=== PATIENT | male | born 1955 ===

== ENCOUNTER 2016-08-17 16:57 | Inpatient (IN) | payer MEDICAID ==
[2016-08-17 17:07] VITALS: BMI 24.2
[2016-08-17] MEDS ORDERED: Vancomycin 1gm in NS 250ml 1 GM/250 ML BAG IVPB STA (17:31)
[2016-08-17] MEDS ORDERED: Piperacill/Tazo 4.5gm in NS 4.5 GM/100 ML BAG IVPB STA (17:31)
--- NOTE | 2016-08-17 17:45 | ED PDOC ---
Arrival/HPI - General Chief Complaint: Abnormal Skin Integrity Time Seen by Provider: 08/17/16 17:00 Historian: Patient - History of Present Illness Narrative History of Present Illness (Text): 08/17/16 17:20 This 61 yo male with a pmh HTN, and recent history of alcohol abuse, presents to this ED c/o generalized rash x 3-4 weeks. Patient b/l lower leg have been progressively worsen, and swollen with drainage. Patient admits intermittent chills, and believes he had a fever yesterday. Denies recent travel, sick contact, sob, cp, zuniga, seizures, abdominal pain, or urinary symptoms. Time/Duration: > month Symptom Onset: Gradual Symptom Course: Worsening Context: Home Past Medical History - Provider Review Nursing Documentation Reviewed: Yes - Cardiac Hx Hypertension: Yes - Pulmonary Hx Respiratory Disorders: No - Neurological Hx Dementia: Yes - HEENT Hx HEENT Disorder: No - Renal Hx Renal Disorder: No - Endocrine/Metabolic Hx Endocrine Disorders: No - Hematological/Oncological Hx Blood Disorders: No - Integumentary Hx Dermatological Disorder: No - Musculoskeletal/Rheumatological Hx Musculoskeletal Disorders: No - Gastrointestinal Hx Gastrointestinal Disorders: No - Genitourinary/Gynecological Hx Genitourinary Disorders: No - Psychiatric Hx Psychophysiologic Disorder: No Hx Substance Use: No - Anesthesia Hx Anesthesia: No Family/Social History - Physician Review Nursing Documentation Reviewed: Yes Family/Social History: No Known Family HX Smoking Status: Never Smoked Hx Alcohol Use: No Hx Substance Use: No Allergies/Home Meds Allergies/Adverse Reactions: Allergies No Known Allergies Allergy (Verified 08/17/16 17:30) Review of Systems - Review of Systems Constitutional: Fevers, Other (chills). absent: Fatigue, Weight Change Eyes: Normal ENT: Normal Respiratory: Normal. absent: SOB, Cough Cardiovascular: Normal. absent: Chest Pain, Palpitations Gastrointestinal: Normal. absent: Abdominal Pain, Vomiting, Appetite Changes Genitourinary Male: Normal. absent: Dysuria, Frequency, Hematuria Musculoskeletal: Normal Skin: Rash, Pruritis, Skin Lesions, Cellulitis, Other (See HPI). absent: Laceration, Abscess, Ulcer Neurological: Normal. absent: Headache, Dizziness Endocrine: Normal Hemo/Lymphatic: Normal Psychiatric: Normal Physical Exam Vital Signs Temp Pulse Resp BP Pulse Ox 08/17/16 17:12 97.9 F 95 H 16 124/78 98 08/17/16 17:07 97.9 F 95 H 16 124/78 98 Temperature: Afebrile Blood Pressure: Normal Pulse: Regular Respiratory Rate: Normal Appearance: Positive for: Well-Appearing, Non-Toxic, Comfortable Pain Distress: None Mental Status: Positive for: Alert and Oriented X 3 - Systems Exam Head: Present: Atraumatic, Normocephalic Pupils: Present: PERRL Extroacular Muscles: Present: EOMI Conjunctiva: Present: Normal Mouth: Present: Moist Mucous Membranes Pharnyx: Present: Normal. No: ERYTHEMA, EXUDATE, TONSILS ENLARGED Nose (External): Present: Atraumatic Nose (Internal): Present: Normal Inspection Neck: Present: Normal Range of Motion. No: Meningeal Signs, MIDLINE TENDERNESS , Paraspinal Tenderness Respiratory/Chest: Present: Clear to Auscultation, Good Air Exchange. No: Respiratory Distress, Accessory Muscle Use, Wheezes, Retracting, Rhonchi Cardiovascular: Present: Regular Rate and Rhythm, Normal S1, S2. No: Murmurs Abdomen: Present: Normal Bowel Sounds. No: Tenderness, Distention, Peritoneal Signs Back: Present: Normal Inspection. No: CVA Tenderness Upper Extremity: Present: Normal Inspection, Normal ROM, NORMAL PULSES, Neurovascularly Intact, Capillary Refill < 2s. No: Cyanosis, Edema Lower Extremity: Present: Edema, NORMAL PULSES, Normal ROM, Tenderness, Swelling , Erythema, Temperature Abnormalties, Neurovascularly Intact, Capillary Refill < 2 s, Other (Oozing drainage both lower extremities). No: CALF TENDERNESS, Cyanosis, Deformity Neurological: Present: GCS=15, CN II-XII Intact, Speech Normal Skin: Present: Warm, Dry, Normal Color. No: Rashes Lymphatic: No: Inguinal Adenopathy Psychiatric: Present: Alert, Oriented x 3, Normal Insight, Normal Concentration Medical Decision Making ED Course and Treatment: 08/17/16 20:21 I spoke with MILKA, residential leasing agent regarding patient complain and physical exam. He said to call Dr. Grimm. I spoke with Dr. Grimm who stated he will see patient Re-evaluation Time: 20:38 Reassessment Condition: Re-examined, Improving,but remains with symptoms - Lab Interpretations Lab Results: 08/17/16 17:59 08/17/16 17:59 Lab Results 08/17/16 20:25: Urine Color Yellow, Urine Appearance Clear, Urine pH 6.0, Ur Specific [place] 1.010, Urine Protein Negative, Urine Glucose (UA) Negative, Urine Ketones Negative, Urine Blood Trace-intact H, Urine Nitrate Negative, Urine Bilirubin Negative, Urine Urobilinogen 0.2, Ur Leukocyte Esterase Negative , Urine RBC 1 - 3, Urine WBC 0 - 2, Ur Epithelial Cells 0 - 2, Urine Bacteria Few 08/17/16 20:07: pO2 85 H, VBG pH 7.38, VBG pCO2 51.0, VBG HCO3 30.2 H, VBG Total CO2 31.8 H, VBG O2 Sat (Calc) 100.9 H, VBG Base Excess 3.9 H, VBG Potassium 4.5, Glucose 114 H, Lactate 2.4 H, FiO2 21.0, Sodium 146.0, Chloride 111.0 H, Venous Blood Potassium 4.5 08/17/16 17:59: C-React Prot High Sens Pending, Alcohol, Quantitative 429 H* 08/17/16 17:59: Sodium 147, Potassium 4.7, Chloride 102, Carbon Dioxide 31, Anion Gap 19, BUN 9, Creatinine 0.7, Est GFR ( Amer) > 60, Est GFR (Non- Af Amer) > 60, Random Glucose 114 H, Calcium 8.5, Phosphorus 4.3, Magnesium 2.0 , Total Bilirubin 0.6, AST 71 H, ALT 25, Alkaline Phosphatase 112, Lactate Dehydrogenase 723 H, Total Creatine Kinase 98, Troponin I < 0.01, NT-Pro-B Natriuret Pep 30.2, Total Protein 10.1 H, Albumin 4.1, Globulin 6.0, Albumin/ Globulin Ratio 0.7 L 08/17/16 17:59: PT 11.4, INR 1.06, APTT 25.9 08/17/16 17:59: WBC 5.5, RBC 4.29, Hgb 14.0, Hct 40.4 L, MCV 94.2, MCH 32.6, MCHC 34.7, RDW 13.6, Plt Count 251, MPV 9.8, Gran % 33.3 L, Lymph % (Auto) 38.9 H, [place] % (Auto) 8.9 H, Eos % (Auto) 18.4 H, Baso % (Auto) 0.5, Gran # 1.84, Lymph # 2.2, [place] # 0.5, Eos # 1.0 H, Baso # 0.03, ESR 40 H I have reviewed the lab results: Yes Interpretation: Abnormal lab values - RAD Interpretation Narrative RAD Interpretations (Text): 08/17/16 20:38 Venous Doppler lower extremity: NO DVT Radiology Orders: 08/17/16 17:35 CHEST PORTABLE [RAD] Stat 08/17/16 17:38 DUPLEX LOWER EXTRM VEIN BILAT [US] Stat - EKG Interpretation Interpreted by ED Physician: Yes (NSR at 92 bpm. Normal interval.) Type: 12 lead EKG Comparison: No previous EKG avail. - Medication Orders Current Medication Orders: Multivitamins/Vitamin C 10 ml/Thiamine HCl 100 mg/ Folic Acid 1 mg/ Sodium Chloride 1,011.2 mls @ 1,000 mls/hr IV .Q1H1M ONE Stop: 08/17/16 21:21 Discontinued Medications Vancomycin HCl (Vancomycin 1gm) 1 gm in 250 mls @ 167 mls/hr IVPB STAT STA PRN Reason: Protocol Stop: 08/17/16 19:00 Last Admin: 08/17/16 20:17 Dose: 167 mls/hr Piperacillin Sod/Tazobactam Sod (Zosyn 4.5 Gm In Ns 100ml) 4.5 gm in 100 mls @ 200 mls/hr IVPB STAT STA PRN Reason: Protocol Stop: 08/17/16 18:00 Last Admin: 08/17/16 18:28 Dose: 200 mls/hr Lorazepam (Ativan) 2 mg IVP ONCE ONE PRN Reason: Protocol Stop: 08/17/16 20:22 Disposition/Present on Arrival - Present on Arrival Any Indicators Present on Arrival: No History of DVT/PE: No History of Uncontrolled Diabetes: No Urinary Catheter: No History of Decub. Ulcer: No History Surgical Site Infection Following: None - Disposition Have Diagnosis and Disposition been Completed?: Yes Diagnosis: Cellulitis of both lower extremities, Multiple superficial wounds with infection Disposition: HOSPITALIZED Disposition Time: 20:40 Patient Plan: Admission Patient Problems: Current Active Problems Problem Status Onset Cellulitis of both lower extremities Acute Multiple superficial wounds with infection Acute Condition: GOOD Discharge Instructions (ExitCare): Cellulitis (ED) Referrals: [facility], [Primary Care Provider] - Follow up with primary
[2016-08-17 18:53] LABS: BASO # 0.03 K/mm3 (0.0-2.0); BASO % 0.5 % (0.0-3.0); EOS % 18.4 % (1.5-5.0); GRAN # 1.84 (1.4-6.5); GRAN % 33.3 % (50.0-68.0); HEMATOCRIT 40.4 % (42.0-52.0); LYMPH # 2.2 (1.2-3.4); LYMPH % 38.9 % (22.0-35.0); MEAN CELL VOLUME 94.2 fL (80.0-105.0); MEAN CORPUSCULAR HEMOGLOBIN 32.6 pg (25.0-35.0); MEAN CORPUSCULAR HGB CONC 34.7 g/dl (31.0-37.0); MEAN PLATELET VOLUME 9.8 fl (7.0-11.0); MONO # 0.5 (0.1-0.6); MONO % 8.9 % (1.0-6.0); PLATELET COUNT 251 10^3/uL (120.0-450.0); RED CELL DISTRIBUTION WIDTH 13.6 % (11.5-14.5); WHITE BLOOD COUNT 5.5 10^3/ul (4.5-11.0)
[2016-08-17 18:56] LABS: ADD MANUAL DIFF? NO
[2016-08-17 19:04] LABS: ALB/GLOB RATIO 0.7 (1.1-1.8); ALKALINE PHOSPHATASE 112 U/L (38-133); ALT/SGPT 25 U/L (7-56); AST/SGOT 71 U/L (15-59); BILIRUBIN,TOTAL 0.6 mg/dL (0.2-1.3); BLOOD UREA NITROGEN 9 mg/dL (7-21); CALCIUM 8.5 mg/dL (8.4-10.5); CARBON DIOXIDE 31 mmol/L (21-33); CHLORIDE 102 mmol/L (98-107); GFR AFRICAN-AMERICAN > 60; GLUCOSE,RANDOM 114 mg/dL (70-110); PHOSPHOROUS 4.3 mg/dL (2.5-4.5); SODIUM 147 mmol/L (132-148); TOTAL PROTEIN 10.1 g/dL (5.8-8.3)
[2016-08-17 19:05] LABS: INR 1.06 (0.93-1.08); PARTIAL THROMBOPLASTIN TIME 25.9 Seconds (23.7-30.8)
[2016-08-17 19:06] LABS: POTASSIUM 4.7 mmol/L (3.6-5.0)
[2016-08-17 19:18] LABS: TROPONIN I < 0.01 ng/mL
--- NOTE | 2016-08-17 19:50 | US ---
HISTORY: Leg pain and swelling. Evaluate for DVT PHYSICIAN(S): Alhaji Lerma MD. TECHNIQUE: Duplex sonography and color-flow Doppler with graded compression were used to evaluate the deep venous systems of both lower extremities. FINDINGS: The visualized deep venous systems of both lower extremities are sonographically normal and compressible. Normal wave forms and augmentation are seen. There is no sonographic evidence for deep venous thrombosis in the visualized segments of both lower extremities. IMPRESSION: No sonographic evidence for deep venous thrombosis in the visualized segments of both lower extremities.
[2016-08-17 20:10] LABS: VENOUS BLOOD GAS BASE EXCESS 3.9 mmol/L (0.0-2.0); VENOUS BLOOD PH 7.38 (7.32-7.43)
[2016-08-17 20:18] LABS: ERYTHROCYTE SEDIMENTATION RATE 40 mm/hr (0.00-15.0)
[2016-08-17] MEDS ORDERED: Multivitamin (MVI) 10 ML, Thiamine 100 MG, Folic Acid 1 MG in Sodium Chloride 0.9% 1,00... IV ONE (20:21)
[2016-08-17 20:37] LABS: URINE BILIRUBIN NEGATIVE (NEGATIVE); URINE BLOOD TRACE-INTACT (NEGATIVE); URINE GLUCOSE (UA) NEGATIVE (NEGATIVE); URINE KETONE NEGATIVE (NEGATIVE); URINE LEUKOCYTE ESTERASE NEGATIVE Leu/uL (NEGATIVE); URINE PROTEIN NEGATIVE mg/dL (<30 mg/dL); URINE UROBILINOGEN 0.2 E.U./dL (<1 E.U./dL)
[2016-08-17 20:45] LABS: URINE APPEARANCE CLEAR (CLEAR); URINE COLOR YELLOW (YELLOW)
[2016-08-17 20:47] LABS: URINE BACTERIA FEW (NEG); URINE EPITHELIAL CELLS 0 - 2 /hpf (0-5); URINE WBC 0 - 2 /hpf (0-6)
[2016-08-18 00:52] LABS: VENOUS BLOOD GAS BASE EXCESS 6.8 mmol/L (0.0-2.0); VENOUS BLOOD PH 7.47 (7.32-7.43)
--- NOTE | 2016-08-18 01:05 | CP.PCM.HP ---
<Dale Liu - Last Filed: 08/18/16 00:55> History of Present Illness - History of Present Illness History of Present Illness: CC: "Rash" HPI: Pt is a 61 year old male with no reported PMHx who presented to the ED with complaints of rash throughout his body that he reports began about 4 months ago. Pt states that the rash has been growing in size and spreading throughout the body. Pt reports that the rash is itchy, but not painful and draining. He reports that he went to his PMD in [place] who gave him a steroid cream, which did not help. He also reports that he went to [facility] in [place] and was released and told that they could not help him. Pt also reports that he has a history of alcohol abuse and has been drinking daily for many years. He reports that he drinks 5-7 beers and some shots of whiskey or bacardi. He reports that when he does not drink he gets shakes. He also reports that he has been living with his [id number] ever since he from his , and he has been depressed. Pt denies fever, chills, chest pain, shortness of breath, nausea, and vomiting. PMHx: none reported Home medications: none Allergies: NKDA Social Hx: denies tobacco use, reports hx of drinking 5-7 beers/day with shots of whiskey or bacardi for many years, denies hx of illicit drug use Fam Hx: no significant family history reported Present on Admission - Present on Admission Any Indicators Present on Admission: No Review of Systems - Constitutional Constitutional: absent: Fever, Night Sweats - EENT Eyes: absent: Blurred Vision, Change in Vision Ears: absent: Decreased Hearing, Disequilibrium Nose/Mouth/Throat: absent: Epistaxis, Nasal Congestion - Cardiovascular Cardiovascular: absent: Chest Pain, Dyspnea, Irregular Heart Rhythm, Leg Edema - Respiratory Respiratory: absent: Cough, Dyspnea - Gastrointestinal Gastrointestinal: absent: Abdominal Pain, Constipation, Nausea, Vomiting - Genitourinary Genitourinary: absent: Dysuria - Musculoskeletal Musculoskeletal: absent: Atrophy, Back Pain - Integumentary Integumentary: Pruritus, Rash - Neurological Neurological: absent: Dizziness, Headaches, Paresthesias - Psychiatric Psychiatric: Depression - Hematologic/Lymphatic Hematologic: absent: Easy Bleeding, Easy Bruising Past Patient History - Past Social History Smoking Status: Never Smoked - CARDIAC Hx Hypertension: Yes - PULMONARY Hx Respiratory Disorders: No - NEUROLOGICAL Hx Dementia: Yes - HEENT Hx HEENT Problems: No - RENAL Hx Chronic Kidney Disease: No - ENDOCRINE/METABOLIC Hx Endocrine Disorders: No - HEMATOLOGICAL/ONCOLOGICAL Hx Blood Disorders: No - INTEGUMENTARY Hx Dermatological Problems: No - MUSCULOSKELETAL/RHEUMATOLOGICAL Hx Musculoskeletal Disorders: No - GASTROINTESTINAL Hx Gastrointestinal Disorders: No - GENITOURINARY/GYNECOLOGICAL Hx Genitourinary Disorders: No - PSYCHIATRIC Hx Psychophysiologic Disorder: No Hx Substance Use: No - SURGICAL HISTORY Hx Surgeries: No - ANESTHESIA Hx Anesthesia: No Meds Allergies/Adverse Reactions: Allergies Allergy/AdvReac Type Severity Reaction Status Date / Time No Known Allergies Allergy Verified 08/17/16 17:30 Physical Exam - Constitutional Appears: No Acute Distress - Head Exam Head Exam: ATRAUMATIC, NORMOCEPHALIC - Eye Exam Eye Exam: EOMI, PERRL - ENT Exam ENT Exam: Mucous Membranes Moist. absent: Mucous Membranes Dry - Neck Exam Neck exam: Positive for: Full Rom. Negative for: Lymphadenopathy - Respiratory Exam Respiratory Exam: Clear to Auscultation Bilateral. absent: Rales, Rhonchi, Wheezes - Cardiovascular Exam Cardiovascular Exam: +S1, +S2. absent: Gallop, Rubs - GI/Abdominal Exam GI & Abdominal Exam: Soft. absent: Tenderness - Extremities Exam Extremities exam: Positive for: pedal edema - Skin Skin Exam: Dry, Rash Additional comments: Pt has diffuse rashes throughout his body; particularly on his abdomen, upper extremities, and lower extremities; rash on lower extremities is dry, nontender , nonpurulent, and scaly Results - Vital Signs Recent Vital Signs: Last Vital Signs Temp 97.9 F 08/17/16 17:12 Pulse 95 H 08/17/16 17:12 Resp 16 08/17/16 17:12 BP 124/78 08/17/16 17:12 Pulse Ox 98 08/17/16 17:12 - Labs Result Diagrams: 08/17/16 17:59 08/17/16 17:59 Assessment & Plan - Assessment and Plan (Free Text) Assessment: Diffuse Rash: Afebrile, no leukocytosis Lower Extremity venous dopplers - no sonographic evidence for DVTs (please see full report) Doxycycline 100 mg IV Q12h Fluconazole 100 mg po qd Ivermectin 14 mg po once Blood cultures, urine cultures pending Benadryl 25 mg po q6h prn for pruritis Alcohol Withdrawal: Alcohol tox screen: 429 AST/ALT: 71/25 Thiamine 100 mg po qd Folic Acid 1 mg po qd Ativan 1 mg IV q2h prn Depression: Psychiatry consult, Dr. Goldstein, beba mckeon. Prophylactic Measures: DVT: Heparin 5000 units sc q8h, SCDs contraindicated to b/l LE edema GI: Protonix 40 mg po qd <Markos Grimm P - Last Filed: 08/30/16 19:33> Results - Vital Signs Recent Vital Signs: Last Vital Signs Temp 98.3 F 08/24/16 06:00 Pulse 81 08/24/16 09:31 Resp 20 08/24/16 06:00 BP 147/91 H 08/24/16 09:31 Pulse Ox 99 08/24/16 06:00 - Labs Result Diagrams: 08/24/16 06:30 08/24/16 06:30 Attending/Attestation - Attestation I have personally seen and examined this patient.: Yes I have fully participated in the care of the patient.: Yes I have reviewed all pertinent clinical information: Yes
[2016-08-18] MEDS: Pantoprazole 40 mg EC Tab PO SCH (05:34)
[2016-08-18 06:53] LABS: ADD MANUAL DIFF? NO
[2016-08-18 07:05] LABS: ALB/GLOB RATIO 0.7 (1.1-1.8); ALKALINE PHOSPHATASE 101 U/L (38-133); ALT/SGPT 31 U/L (7-56); AST/SGOT 53 U/L (15-59); BILIRUBIN,TOTAL 0.7 mg/dL (0.2-1.3); BLOOD UREA NITROGEN 7 mg/dL (7-21); CARBON DIOXIDE 27 mmol/L (21-33); CHLORIDE 103 mmol/L (98-107); GFR AFRICAN-AMERICAN > 60; GLUCOSE,RANDOM 85 mg/dL (70-110); MAGNESIUM 1.4 mg/dL (1.7-2.2); PHOSPHOROUS 3.4 mg/dL (2.5-4.5); POTASSIUM 3.4 mmol/L (3.6-5.0); SODIUM 143 mmol/L (132-148); TOTAL PROTEIN 8.4 g/dL (5.8-8.3)
[2016-08-18 07:12] LABS: BASO # 0.03 K/mm3 (0.0-2.0); BASO % 0.5 % (0.0-3.0); EOS # 0.8 (0.0-0.7); EOS % 11.9 % (1.5-5.0); GRAN # 3.49 (1.4-6.5); GRAN % 54.8 % (50.0-68.0); HEMATOCRIT 35.6 % (42.0-52.0); LYMPH # 1.4 (1.2-3.4); LYMPH % 22.1 % (22.0-35.0); MEAN CELL VOLUME 92.2 fL (80.0-105.0); MEAN CORPUSCULAR HEMOGLOBIN 30.8 pg (25.0-35.0); MEAN CORPUSCULAR HGB CONC 33.4 g/dl (31.0-37.0); MEAN PLATELET VOLUME 9.4 fl (7.0-11.0); MONO # 0.7 (0.1-0.6); MONO % 10.7 % (1.0-6.0); PLATELET COUNT 210 10^3/uL (120.0-450.0); RED CELL DISTRIBUTION WIDTH 13.3 % (11.5-14.5); WHITE BLOOD COUNT 6.4 10^3/ul (4.5-11.0)
[2016-08-18] MEDS ORDERED: Magnesium Sulfate 2 GM in Sodium Chloride 0.9% 100 ML IVPB ONE (07:30)
--- NOTE | 2016-08-18 07:46 | RAD ---
HISTORY: Sepsis Patient COMPARISON: No prior. FINDINGS: LUNGS: No active pulmonary disease. PLEURA: No significant pleural effusion identified, no pneumothorax apparent. CARDIOVASCULAR: Top-normal heart size. Aortic knob atherosclerotic vascular calcification OSSEOUS STRUCTURES: No significant abnormalities. VISUALIZED UPPER ABDOMEN: Normal. OTHER FINDINGS: None. IMPRESSION: No active disease.
[2016-08-18] MEDS: Multivitamin Therapeutic Tab PO SCH (09:24)
[2016-08-18] MEDS ORDERED: Multivitamin (MVI) 10 ML, Thiamine 100 MG, Folic Acid 1 MG in Dextrose 5% In Water 1,00... IV ONE ×3 (10:35→12:00)
[2016-08-18] MEDS ORDERED: Permethrin 5% Cream(60 gm) TOP ONE (10:50)
--- NOTE | 2016-08-18 12:09 | CON ---
DATE: 08/18/2016 IDENTIFYING INFORMATION: The patient is a 61-year-old ____ male who came to the Emergency Room at the behest of his [id number], whom he was visiting, because he had a rash throughout his b giovani that began 4 months ago. HISTORY OF PRESENT ILLNESS: The patient reports also that he had initially gone to [facility] in [place] and then was sent to a facility in [place] where he was detoxed. He then upon visiting his sister here had more discomfort because of his skin rash, but he has been k nown also to be in alcohol withdrawal. He has a long history of alcohol abuse, indicating he drinks many bottles of Coors beer daily augment ed with whiskey. I have reviewed the patient's case with his nurse. The patient informs me that he is a lower si[place] of [facility] and the middle of his parents' 7 children. S ome siblings may have abused alcohol, but there are no other psychiatric disorders. He has 4 sisters and 2 brothers, of which he is a middle child. At 25, the patient, as noted, came to the [facility], [place] [facility] [place] has resided. He has worked in [employer] as recently as last week. He has been for 35 years, but when his became tired of his chronic alcohol use . He has twin sons, age 33, and a daughter in her 20s. They are reported to be okay. The patient reports to me that he has had 3 detoxes and possibly rehabs in his life. The first was a [facility] in [place] in 1991, the most recent in [place] and one other facility. He denies other substance use. The patient indicated that his health has been reasonably good. The patient is alert, oriented, tremulous, denies psychosis, does speak of feeling depressed about be ing from his , but denies suicidality or homicidality or psychotic or paranoid ideation . 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 RECOMMENDATIONS: The patient was presently being treated with Ativan. He may ____ get involved in counseling to help him deal with the separation from his ; a conseque nce according to the patient for no longer being able to tolerate his chronic alcohol abuse. Zan Goldstein MD, PhD cc: [id number] TT: 08/18/2016 12:08:04 Confirmation # [id number] Dictation # [id number]
--- NOTE | 2016-08-18 13:03 | CARD ---
APPROVED REPORT EKG Measurement Heart [id number] <Conclusion> Normal sinus rhythm Normal ECG
--- NOTE | 2016-08-18 21:05 | CP.PCM.CON ---
History of Present Illness - History of Present Illness History of Present Illness: 61 year old male with PMH of alcohol abuse came to [facility] complaining of diffuse rash on his arms, legs and torso which apparently started about 4 months ago. She states that the rash has been getting worse. He has been to his PMD who has given him a steroid cream but without improvement. He has also been to different hospitals and he still continues to have the rash. He has also been at times homeless. He denies fever or chills, no nausea or vomiting, no chest pain, no SOB, no headache or dizziness, no chest pain, no rhinorrhea, no cough, no diarrhea, no dysuria. He denies animal contacts or insect bites. Infectious diseases consult is requested to further evaluate and manage. Review of Systems - Review of Systems All systems: reviewed and no additional remarkable complaints except (as per HPI ) Past Patient History - Past Social History Smoking Status: Never Smoked - CARDIAC Hx Hypertension: Yes - PULMONARY Hx Respiratory Disorders: No - NEUROLOGICAL Hx Dementia: Yes - HEENT Hx HEENT Problems: No - RENAL Hx Chronic Kidney Disease: No - ENDOCRINE/METABOLIC Hx Endocrine Disorders: No - HEMATOLOGICAL/ONCOLOGICAL Hx Blood Disorders: No - INTEGUMENTARY Hx Dermatological Problems: No - MUSCULOSKELETAL/RHEUMATOLOGICAL Hx Musculoskeletal Disorders: No - GASTROINTESTINAL Hx Gastrointestinal Disorders: No - GENITOURINARY/GYNECOLOGICAL Hx Genitourinary Disorders: No - PSYCHIATRIC Hx Psychophysiologic Disorder: No Hx Substance Use: No - SURGICAL HISTORY Hx Surgeries: No - ANESTHESIA Hx Anesthesia: No Meds Allergies/Adverse Reactions: Allergies Allergy/AdvReac Type Severity Reaction Status Date / Time No Known Allergies Allergy Verified 08/17/16 17:30 - Medications Medications: Current Medications Diphenhydramine HCl (Benadryl) 25 mg PO Q6 PRN PRN Reason: Itching / Pruritus Last Admin: 08/18/16 04:39 Dose: 25 mg Fluconazole (Diflucan) 100 mg PO DAILY ANH PRN Reason: Protocol Folic Acid (Folic Acid) 1 mg PO DAILY [facility] Heparin Sodium (Porcine) (Heparin) 5,000 units SC Q8 ANH PRN Reason: Protocol Last Admin: 08/18/16 05:35 Dose: 5,000 units Doxycycline Hyclate 100 mg/ (Sodium Chloride) 100 mls @ 100 mls/hr IVPB Q12 ANH PRN Reason: Protocol Last Admin: 08/18/16 00:55 Dose: 100 mls/hr Ivermectin (Stromectol) 14 mg PO ONCE ONE Stop: 08/17/16 23:00 Lorazepam (Ativan) 1 mg IVP Q2 PRN; Protocol PRN Reason: Anxiety Last Admin: 08/18/16 06:08 Dose: 1 mg Multivitamins (Thera Tab) 1 tab PO DAILY [facility] Pantoprazole Sodium (Protonix Ec Tab) 40 mg PO 0630 [facility] Last Admin: 08/18/16 05:34 Dose: 40 mg Thiamine HCl (Vitamin B1 Tab) 100 mg PO DAILY [facility] Last Admin: 08/18/16 00:53 Dose: 100 mg Physical Exam - Constitutional Appears: Non-toxic, No Acute Distress - Head Exam Head Exam: NORMAL INSPECTION - ENT Exam ENT Exam: Mucous Membranes Moist - Neck Exam Neck exam: Negative for: Lymphadenopathy, Meningismus - Respiratory Exam Respiratory Exam: Decreased Breath Sounds - Cardiovascular Exam Cardiovascular Exam: +S1, +S2 - GI/Abdominal Exam GI & Abdominal Exam: Soft. absent: Tenderness - Skin Additional comments: diffuse rash plaque-like with areas of excoriation Results - Vital Signs Recent Vital Signs: Last Vital Signs Temp 97.9 F 08/18/16 01:15 Pulse 108 H 08/18/16 01:15 Resp 20 08/18/16 01:15 BP 157/95 H 08/18/16 01:15 Pulse Ox 98 08/17/16 17:12 - Labs Result Diagrams: 08/18/16 05:00 08/18/16 05:00 Labs: Laboratory Results - last 24 hr 08/18/16 00:30 pO2 33 VBG pH 7.47 H VBG pCO2 43.0 VBG HCO3 31.3 H VBG Total CO2 32.6 H VBG O2 Sat (Calc) 76.4 H VBG Base Excess 6.8 H VBG Potassium 3.8 Sodium 145.0 Chloride 110.0 H Glucose 102 Lactate 2.1 FiO2 21.0 Venous Blood Potassium 3.8 Assessment & Plan - Assessment and Plan (Free Text) Plan: Assessment Diffuse rash with plaques R/O scabies R/O autoimmune-related R/O psoriasis histoy of alcohol abuse homelessness Plan Started patient on Permethrin cream; patient has been started on Doxycycline as well Follow up GRISELDA levels Would recommend skin biopsy Discussed with Dr. Quiors Follow up clinically
[2016-08-19] MEDS ORDERED: Clotrimazole/Betamethasone Cream(15 gm) TOP SCH (04:00)
[2016-08-19] MEDS: Pantoprazole 40 mg EC Tab PO SCH (06:04)
[2016-08-19 07:55] LABS: ADD MANUAL DIFF? NO
[2016-08-19 07:59] LABS: BASO # 0.02 K/mm3 (0.0-2.0); BASO % 0.3 % (0.0-3.0); EOS # 0.3 (0.0-0.7); EOS % 5.2 % (1.5-5.0); GRAN # 4.35 (1.4-6.5); GRAN % 75.7 % (50.0-68.0); HEMATOCRIT 38.2 % (42.0-52.0); LYMPH # 0.7 (1.2-3.4); LYMPH % 12.7 % (22.0-35.0); MEAN CELL VOLUME 91.4 fL (80.0-105.0); MEAN CORPUSCULAR HEMOGLOBIN 31.8 pg (25.0-35.0); MEAN CORPUSCULAR HGB CONC 34.8 g/dl (31.0-37.0); MEAN PLATELET VOLUME 9.7 fl (7.0-11.0); MONO # 0.4 (0.1-0.6); MONO % 6.1 % (1.0-6.0); PLATELET COUNT 205 10^3/uL (120.0-450.0); WHITE BLOOD COUNT 5.8 10^3/ul (4.5-11.0)
[2016-08-19 08:16] LABS: ALB/GLOB RATIO 0.7 (1.1-1.8); ALKALINE PHOSPHATASE 117 U/L (38-133); ALT/SGPT 28 U/L (7-56); AST/SGOT 62 U/L (15-59); BILIRUBIN,TOTAL 1.9 mg/dL (0.2-1.3); BLOOD UREA NITROGEN 11 mg/dL (7-21); CALCIUM 9.3 mg/dL (8.4-10.5); CARBON DIOXIDE 28 mmol/L (21-33); CHLORIDE 99 mmol/L (98-107); GFR AFRICAN-AMERICAN > 60; GLUCOSE,RANDOM 129 mg/dL (70-110); MAGNESIUM 1.6 mg/dL (1.7-2.2); POTASSIUM 3.3 mmol/L (3.6-5.0); SODIUM 138 mmol/L (132-148); TOTAL PROTEIN 9.8 g/dL (5.8-8.3)
[2016-08-19] MEDS ORDERED: Potassium Chloride 20 mEq ER Tab PO STA (09:03)
[2016-08-19] MEDS ORDERED: Magnesium Sulfate 2 GM in Sodium Chloride 0.9% 100 ML IVPB ONE (09:04)
--- NOTE | 2016-08-19 09:10 | CP.PCM.CON ---
<Moses Antoinea - Last Filed: 08/19/16 09:21> History of Present Illness - History of Present Illness History of Present Illness: 61 y/o male with pmhx of alcohol abuse seen at bedside with attending Dr. Dailey for bilateral leg swelling and rash. Patient states that he has had a rash for about 4 months and nothing has helped. Patient denies itching but states that he has scaling and scabs all over his body except for his head. Patient denies any pain in his feet. he denies any other pedal complaints. Patient states that his legs sometimes swells and become very red. patient denies n/f/v/c/d/sob. Review of Systems - Constitutional Constitutional: As Per HPI Past Patient History - Past Social History Smoking Status: Never Smoked - CARDIAC Hx Hypertension: Yes - PULMONARY Hx Respiratory Disorders: No - NEUROLOGICAL Hx Dementia: Yes - HEENT Hx HEENT Problems: No - RENAL Hx Chronic Kidney Disease: No - ENDOCRINE/METABOLIC Hx Endocrine Disorders: No - HEMATOLOGICAL/ONCOLOGICAL Hx Blood Disorders: No - INTEGUMENTARY Hx Dermatological Problems: No - MUSCULOSKELETAL/RHEUMATOLOGICAL Hx Musculoskeletal Disorders: No - GASTROINTESTINAL Hx Gastrointestinal Disorders: No - GENITOURINARY/GYNECOLOGICAL Hx Genitourinary Disorders: No - PSYCHIATRIC Hx Psychophysiologic Disorder: No Hx Substance Use: No - SURGICAL HISTORY Hx Surgeries: No - ANESTHESIA Hx Anesthesia: No Meds Allergies/Adverse Reactions: Allergies Allergy/AdvReac Type Severity Reaction Status Date / Time No Known Allergies Allergy Verified 08/17/16 17:30 - Medications Medications: Current Medications Chlordiazepoxide (Librium) 10 mg PO Q8 ANH PRN Reason: Protocol Last Admin: 08/19/16 06:04 Dose: 10 mg Diphenhydramine HCl (Benadryl) 25 mg PO Q4 ANH Last Admin: 08/19/16 08:14 Dose: 25 mg Fluconazole (Diflucan) 100 mg PO DAILY [facility]H PRN Reason: Protocol Last Admin: 08/18/16 12:36 Dose: 100 mg Folic Acid (Folic Acid) 1 mg PO DAILY ANH Last Admin: 08/18/16 09:24 Dose: 1 mg Heparin Sodium (Porcine) (Heparin) 5,000 units SC Q8 ANH PRN Reason: Protocol Last Admin: 08/19/16 06:04 Dose: 5,000 units Doxycycline Hyclate 100 mg/ (Sodium Chloride) 100 mls @ 100 mls/hr IVPB Q12 ANH PRN Reason: Protocol Last Admin: 08/18/16 21:20 Dose: 100 mls/hr Magnesium Sulfate 2 gm/ Sodium (Chloride) 104 mls @ 102 mls/hr IVPB ONCE ONE Stop: 08/19/16 10:05 Lorazepam (Ativan) 1 mg IVP Q2 PRN; Protocol PRN Reason: Anxiety Last Admin: 08/19/16 08:13 Dose: 1 mg Multivitamins (Thera Tab) 1 tab PO DAILY [facility] Last Admin: 08/18/16 09:24 Dose: 1 tab Pantoprazole Sodium (Protonix Ec Tab) 40 mg PO 0630 [facility] Last Admin: 08/19/16 06:04 Dose: 40 mg Thiamine HCl (Vitamin B1 Tab) 100 mg PO DAILY [facility] Last Admin: 08/18/16 09:24 Dose: 100 mg Physical Exam - Constitutional Appears: Well, Non-toxic, No Acute Distress - Extremities Exam Additional comments: Vasc: palpable pedal pulses b/l, TG warm to warm, CFT < 3 sec to all digits neuro: grossly intact derm: multiple scaling and scabby lesions present on bilateral feet, dry eschar noted sub met 1 b/l, no underlying abscess formation, edema and erythema noted to bilateral legs, no open lesions, no ascending cellulitis, no drainage, no malodor ortho: mild pain to palpation of lesions bilateral feet - Neurological Exam Neurological exam: Alert, Oriented x3 - Psychiatric Exam Psychiatric exam: Normal Affect, Normal Mood Results - Vital Signs Recent Vital Signs: Last Vital Signs Temp 97.5 F L 08/19/16 06:00 Pulse 98 H 08/19/16 06:00 Resp 20 08/19/16 06:00 BP 162/95 H 08/19/16 06:00 Pulse Ox 99 08/19/16 06:00 - Labs Result Diagrams: 08/19/16 06:30 08/19/16 06:30 Labs: Laboratory Results - last 24 hr 08/18/16 08/18/16 08/19/16 05:00 10:50 06:30 WBC 5.8 RBC 4.18 Hgb 13.3 L Hct 38.2 L MCV 91.4 MCH 31.8 MCHC 34.8 RDW 13.0 Plt Count 205 MPV 9.7 Gran % 75.7 H Lymph % (Auto) 12.7 L [place] % (Auto) 6.1 H Eos % (Auto) 5.2 H Baso % (Auto) 0.3 Gran # 4.35 Lymph # 0.7 L [place] # 0.4 Eos # 0.3 Baso # 0.02 ESR 52 H Sodium Potassium Chloride Carbon Dioxide Anion Gap BUN Creatinine Est GFR ( Amer) Est GFR (Non-Af Amer) Random Glucose Calcium Magnesium Total Bilirubin AST ALT Alkaline Phosphatase Total Protein Albumin Globulin Albumin/Globulin Ratio Complement C3 87.0 L Complement C4 19.3 08/19/16 06:30 WBC RBC Hgb Hct MCV MCH MCHC RDW Plt Count MPV Gran % Lymph % (Auto) [place] % (Auto) Eos % (Auto) Baso % (Auto) Gran # Lymph # [place] # Eos # Baso # ESR Sodium 138 Potassium 3.3 L Chloride 99 Carbon Dioxide 28 Anion Gap 14 BUN 11 Creatinine 0.8 Est GFR ( Amer) > 60 Est GFR (Non-Af Amer) > 60 Random Glucose 129 H Calcium 9.3 Magnesium 1.6 L Total Bilirubin 1.9 H AST 62 H ALT 28 Alkaline Phosphatase 117 Total Protein 9.8 H Albumin 3.9 Globulin 6.0 Albumin/Globulin Ratio 0.7 L Complement C3 Complement C4 Assessment & Plan - Assessment and Plan (Free Text) Assessment: 61 y/o male with pmhx of alcohol abuse seen at bedside for bilateral leg swelling and fungal infection vs. psoriasis Plan: patient evaluated and chart reviewed seen at bedside with attending Dr. Dailey labs and vitals reviewed Rx lotrimin, topicort to apply 2x daily fungal cx obtained possible skin biopsy tomorrow podiatry will continue to follow while patient remains in house <Mai Dailey - Last Filed: 08/29/16 14:12> Results - Vital Signs Recent Vital Signs: Last Vital Signs Temp 98.3 F 08/24/16 06:00 Pulse 81 08/24/16 09:31 Resp 20 08/24/16 06:00 BP 147/91 H 08/24/16 09:31 Pulse Ox 99 08/24/16 06:00 - Labs Result Diagrams: 08/24/16 06:30 08/24/16 06:30 Attending/Attestation - Attestation I have personally seen and examined this patient.: Yes I have fully participated in the care of the patient.: Yes I have reviewed all pertinent clinical information: Yes
[2016-08-19] MEDS ORDERED: Betamethasone Soluspan 30 mg/5mL Inj Susp IM ONE (10:07)
[2016-08-19] MEDS: Desoximetasone 0.25% Cream(15 gm) TOP SCH ×2 (10:14→17:42)
[2016-08-19] MEDS: Clotrimazole 1% Cream(30 gm) TOP SCH ×2 (10:14→17:41)
[2016-08-19] MEDS: Multivitamin Therapeutic Tab PO SCH (10:16)
--- NOTE | 2016-08-19 11:43 | CP.PCM.PN ---
<aMrito Watkins - Last Filed: 08/19/16 12:34> Subjective - Date & Time of Evaluation Date of Evaluation: 08/19/16 Time of Evaluation: 09:30 - Subjective Subjective: Dr. Watkins PGY 1 Hospitalist Note Patient seen and evaluated at bedside. He is alert and oriented and states he continues to itch throughout his body. He says his shaking has improved. He denies any nausea, vomiting, chest pain, SOB, fever, or chills. Further investigation into his history yields that in February he went to [place] to see his mother and the rash developed in March. He does not remember having any interactions with animals or bug bites. He admits to being homeless and staying with friends or sleeping in the streets. Per nursing after first assessing the patient, he becomes confused and tries to ambulate and becomes unsteady. On further evaluation, he was unable to tell me where he wanted to go and was confused about being in the hospital. He attempted to stand and was unsteady so asked to lay back down in the bed. Objective - Vital Signs/Intake and Output Vital Signs (last 24 hours): Temp Pulse Resp BP Pulse Ox 97.5 F L 98 H 20 162/95 H 99 08/19/16 06:00 08/19/16 06:00 08/19/16 06:00 08/19/16 06:00 08/19/16 06:00 Intake and Output: 08/19/16 08/19/16 06:59 18:59 Intake Total 720 240 Output Total 2800 Balance -2080 240 - Medications Medications: Current Medications Chlordiazepoxide (Librium) 10 mg PO Q8 ANH PRN Reason: Protocol Last Admin: 08/19/16 06:04 Dose: 10 mg Clotrimazole (Lotrimin 1%) 0 gm TOP BID ANH Last Admin: 08/19/16 10:14 Dose: 1 applic Desoximetasone (Topicort 0.25%) 0 ea TOP BID [facility] Last Admin: 08/19/16 10:14 Dose: 1 applic Fluconazole (Diflucan) 100 mg PO DAILY [facility] PRN Reason: Protocol Last Admin: 08/19/16 10:17 Dose: 100 mg Folic Acid (Folic Acid) 1 mg PO DAILY [facility] Last Admin: 08/19/16 10:17 Dose: 1 mg Heparin Sodium (Porcine) (Heparin) 5,000 units SC Q8 ANH PRN Reason: Protocol Last Admin: 08/19/16 06:04 Dose: 5,000 units Doxycycline Hyclate 100 mg/ (Sodium Chloride) 100 mls @ 100 mls/hr IVPB Q12 ANH PRN Reason: Protocol Last Admin: 08/19/16 10:15 Dose: 100 mls/hr Loratadine (Claritin) 10 mg PO DAILY [facility] Last Admin: 08/19/16 11:14 Dose: 10 mg Lorazepam (Ativan) 1 mg IVP Q2 PRN; Protocol PRN Reason: Anxiety Last Admin: 08/19/16 08:13 Dose: 1 mg Multivitamins (Thera Tab) 1 tab PO DAILY [facility] Last Admin: 08/19/16 10:16 Dose: 1 tab Pantoprazole Sodium (Protonix Ec Tab) 40 mg PO 0630 [facility] Last Admin: 08/19/16 06:04 Dose: 40 mg Prednisone (Prednisone Tab) 30 mg PO DAILY [facility] Last Admin: 08/19/16 11:14 Dose: 30 mg Thiamine HCl (Vitamin B1 Tab) 100 mg PO DAILY [facility] Last Admin: 08/19/16 10:16 Dose: 100 mg - Labs Labs: 08/19/16 06:30 08/19/16 06:30 PT 11.4 Seconds (9.9-11.8) 08/17/16 17:59 INR 1.06 (0.93-1.08) 08/17/16 17:59 APTT 30.4 Seconds (23.7-30.8) 08/18/16 05:00 - Constitutional Appears: Older Than Stated Age, Confused - Head Exam Head Exam: ATRAUMATIC, NORMOCEPHALIC - Eye Exam Eye Exam: EOMI, PERRL. absent: Normal appearance (arcus sinilis) Pupil Exam: NORMAL ACCOMODATION, PERRL - ENT Exam ENT Exam: Mucous Membranes Moist. absent: Normal Oropharynx (poor dentition, no lesions, no erythema) - Respiratory Exam Respiratory Exam: Clear to Ausculation Bilateral, NORMAL BREATHING PATTERN - Cardiovascular Exam Cardiovascular Exam: REGULAR RHYTHM, +S1, +S2. absent: Gallop, Rubs, Murmur - GI/Abdominal Exam GI & Abdominal Exam: Soft, Normal Bowel Sounds. absent: Tenderness - Extremities Exam Extremities Exam: Pedal Edema, Tenderness. absent: Normal Inspection Additional comments: pulses palpable bilateral erythematous rash with hyperkeratotic regions dry eschar on bilateral 1st toe pain to palpation of lesions - Back Exam Back Exam: rash noted. absent: NORMAL INSPECTION, tenderness - Neurological Exam Neurological Exam: Altered, Awake, CN II-XII Intact - Psychiatric Exam Psychiatric exam: Anxious - Skin Skin Exam: Dry, Rash, Urticaria, Warm. absent: Intact, Normal Color ( erythematous bilateral lower ext) Assessment and Plan - Assessment and Plan (Free Text) Assessment: Patient is 61 y/o male who presented intoxicated with diffuse rashes throughout his body; particularly on his abdomen, upper extremities, and lower extremities; rash on lower extremities is dry, hyperkeratotic, excoriations, with areas of erythema. Podiatry and ID consulted. Surgery consulted for skin biopsy. Plan: Diffuse Rash: * ID consulted, help appreciated * He remains afebrile w/o leukocytosis * Lower Extremity venous dopplers - no sonographic evidence for DVTs (please see full report) * Podiatry consulted due to bilateral eschar and hyperkeratotic lesions * Blood and urine cultures negative * Consult surgery for biopsy * ESR of 52 * CRP of 3.39 * C3 low at 87 C4 19.3 * HIV negative * Switch from benadryl to loratidine due to mental status to control pruritis * continue Doxycycline 100 mg IV Q12h * continue Fluconazole 100 mg po qd * given Ivermectin 14 mg po once * given prednisone which improved pruritis so continue 30mg daily * topical Lotrimin and Topicort * f/u biopsy results Alcohol Withdrawal: * Alcohol tox screen: 429 * Initial AST/ALT: 71/25- trending down * Given 1 banana bag * Continue Thiamine 100 mg po qd * Continue Folic Acid 1 mg po qd * continue Ativan 1 mg IV q2h prn * CIWAA protocol * Seizure precautions * [place] as needed due to instability * PT eval * educated on importance of abstinence Depression: * Psychiatry consult, Dr. Goldstein, help appreciated. * Counseling as needed Prophylactic Measures: * DVT: Heparin 5000 units sc q8h, * SCDs contraindicated to b/l LE edema * Protonix 40 mg po qd Assessment and plan discussed with attending physician. <Patrick ESTEBAN,Brad - Last Filed: 08/19/16 13:28> Objective - Vital Signs/Intake and Output Vital Signs (last 24 hours): Temp Pulse Resp BP Pulse Ox 97.5 F L 98 H 20 162/95 H 99 08/19/16 06:00 08/19/16 06:00 08/19/16 06:00 08/19/16 06:00 08/19/16 06:00 Intake and Output: 08/19/16 08/19/16 06:59 18:59 Intake Total 720 240 Output Total 2800 Balance -2080 240 - Medications Medications: Current Medications Chlordiazepoxide (Librium) 10 mg PO Q8 ANH PRN Reason: Protocol Last Admin: 08/19/16 06:04 Dose: 10 mg Clotrimazole (Lotrimin 1%) 0 gm TOP BID [facility] Last Admin: 08/19/16 10:14 Dose: 1 applic Desoximetasone (Topicort 0.25%) 0 ea TOP BID [facility] Last Admin: 08/19/16 10:14 Dose: 1 applic Fluconazole (Diflucan) 100 mg PO DAILY [facility] PRN Reason: Protocol Last Admin: 08/19/16 10:17 Dose: 100 mg Folic Acid (Folic Acid) 1 mg PO DAILY [facility] Last Admin: 08/19/16 10:17 Dose: 1 mg Heparin Sodium (Porcine) (Heparin) 5,000 units SC Q8 ANH PRN Reason: Protocol Last Admin: 08/19/16 06:04 Dose: 5,000 units Doxycycline Hyclate 100 mg/ (Sodium Chloride) 100 mls @ 100 mls/hr IVPB Q12 ANH PRN Reason: Protocol Last Admin: 08/19/16 10:15 Dose: 100 mls/hr Loratadine (Claritin) 10 mg PO DAILY [facility] Last Admin: 08/19/16 11:14 Dose: 10 mg Lorazepam (Ativan) 1 mg IVP Q2 PRN; Protocol PRN Reason: Anxiety Last Admin: 08/19/16 08:13 Dose: 1 mg Multivitamins (Thera Tab) 1 tab PO DAILY [facility] Last Admin: 08/19/16 10:16 Dose: 1 tab Pantoprazole Sodium (Protonix Ec Tab) 40 mg PO 0630 [facility] Last Admin: 08/19/16 06:04 Dose: 40 mg Prednisone (Prednisone Tab) 30 mg PO DAILY [facility] Last Admin: 08/19/16 11:14 Dose: 30 mg Thiamine HCl (Vitamin B1 Tab) 100 mg PO DAILY [facility] Last Admin: 08/19/16 10:16 Dose: 100 mg - Labs Labs: 08/19/16 06:30 08/19/16 06:30 PT 11.4 Seconds (9.9-11.8) 08/17/16 17:59 INR 1.06 (0.93-1.08) 08/17/16 17:59 APTT 30.4 Seconds (23.7-30.8) 08/18/16 05:00 Attending/Attestation - Attestation I have personally seen and examined this patient.: Yes I have fully participated in the care of the patient.: Yes I have reviewed all pertinent clinical information, including history, physical exam and plan: Yes Notes (Text): 08/19/16 13:20 Patient was seen and examined with bilingual medical assistant .Agreed with resident assessment and plan. Patient is having tremors and is unsteady, showing sign of alcohol withdrawal, will continue monitoring with [facility]. The etiology of skin rash is unclear on antibiotics and trial of steroid, plan for skin biopsy, SP treatment for Scabies(less likely as symptoms has not improved0 Management plan was discussed in detail with patient, need reinforcement. Education was provided.
[2016-08-19] MEDS ORDERED: Potassium Chloride 10 mEq ER Tab PO SCH (17:30)
[2016-08-19] MEDS: Magnesium Oxide 400 mg Tab UD PO SCH (17:41)
--- NOTE | 2016-08-19 22:54 | PN ---
DATE: 08/19/2016 The patient is in bed in no acute distress. On exam the patient was seen earlier this morning in [place] [id number], [address] 1. PHYSICAL EXAMINATION: VITAL SIGNS: Temperature of 98, blood pressure is 160/90, respiratory rate of 20, heart rate of 106. HEENT: Unremarkable. NECK: Supple. LUNGS: Have decreased breath sounds. HEART: Normal S1, S2. ABDOMEN: Soft. LABORATORY DATA: Reveals a white count of 5.8, hemoglobin of 13. BUN of 11, creatinine of 0.8. Uri nalysis is unremarkable. Alcohol level 4 29 two days ago on admission and complement levels are note d. HIV is nonreactive. Microbiology reveals the blood and urine cultures are negative. Review of the orders reveals the patient to be on Diflucan and thiamine and vitamin and Protonix ____ . ASSESSMENT AND PLAN: This is a 61-year-old with a diffuse rash and rule out scabies, autoimmune rela michelet psoriasis must be ruled out. Currently was treated for scabies and workup in progress. Should w atch for alcohol-related complications, alcohol withdrawal seizures and delirium tremens. Rosendo Pack MD cc: 350 TT: 08/19/2016 22:53:18 Confirmation # [id number] Dictation # [id number] kristy
[2016-08-20] MEDS: Pantoprazole 40 mg EC Tab PO SCH (05:56)
--- NOTE | 2016-08-20 06:13 | CP.PCM.CON ---
History of Present Illness - History of Present Illness History of Present Illness: General Surgery Consult Note for Dr. Jack CC: Rash for 4 months HPI: This is an actively hallucinating 61M with no reported PMH other than ethanol abuse. Due to his mental status he was unable to give a comprehensible history per chart review, I gather that the patient has had this rash for 4 months, and he does not know the cause. He reports that it was worse in the beginning. He denies being homeless, camping, or being exposed to anyone with anything similar. He denies fevers, or chills at home. He denies pain or puritis , PMHx: none reported Home medications: none Allergies: NKDA Social Hx: denies tobacco use, reports hx of drinking 5-7 beers/day with shots of whiskey or bacardi for many years, denies hx of illicit drug use Fam Hx: no significant family history reported Review of Systems - Review of Systems Systems not reviewed;Unavailable: Altered Mental Status All systems: reviewed and no additional remarkable complaints except Past Patient History - Past Social History Smoking Status: Never Smoked - CARDIAC Hx Hypertension: Yes - PULMONARY Hx Respiratory Disorders: No - NEUROLOGICAL Hx Dementia: Yes - HEENT Hx HEENT Problems: No - RENAL Hx Chronic Kidney Disease: No - ENDOCRINE/METABOLIC Hx Endocrine Disorders: No - HEMATOLOGICAL/ONCOLOGICAL Hx Blood Disorders: No - INTEGUMENTARY Hx Dermatological Problems: No - MUSCULOSKELETAL/RHEUMATOLOGICAL Hx Musculoskeletal Disorders: No - GASTROINTESTINAL Hx Gastrointestinal Disorders: No - GENITOURINARY/GYNECOLOGICAL Hx Genitourinary Disorders: No - PSYCHIATRIC Hx Psychophysiologic Disorder: No Hx Substance Use: No - SURGICAL HISTORY Hx Surgeries: No - ANESTHESIA Hx Anesthesia: No Meds Allergies/Adverse Reactions: Allergies Allergy/AdvReac Type Severity Reaction Status Date / Time No Known Allergies Allergy Verified 08/17/16 17:30 - Medications Medications: Current Medications Chlordiazepoxide (Librium) 25 mg PO Q8 [facility] PRN Reason: Protocol Last Admin: 08/20/16 05:08 Dose: 25 mg Clotrimazole (Lotrimin 1%) 0 gm TOP BID [facility] Last Admin: 08/19/16 17:41 Dose: 1 applic Desoximetasone (Topicort 0.25%) 0 ea TOP BID [facility] Last Admin: 08/19/16 17:42 Dose: 1 applic Fluconazole (Diflucan) 100 mg PO DAILY [facility] PRN Reason: Protocol Last Admin: 08/19/16 10:17 Dose: 100 mg Folic Acid (Folic Acid) 1 mg PO DAILY [facility] Last Admin: 08/19/16 10:17 Dose: 1 mg Heparin Sodium (Porcine) (Heparin) 5,000 units SC Q8 [facility] PRN Reason: Protocol Last Admin: 08/20/16 05:08 Dose: Not Given Doxycycline Hyclate 100 mg/ (Sodium Chloride) 100 mls @ 100 mls/hr IVPB Q12 [facility] PRN Reason: Protocol Last Admin: 08/19/16 21:20 Dose: 100 mls/hr Dexmedetomidine HCl (Precedex 4 Mcg/Ml (100 Ml)) 400 mcg in 100 mls @ 3.402 mls /hr IV .Q24H PRN; Protocol; 0.2 MCG/KG/HR PRN Reason: Agitation Loratadine (Claritin) 10 mg PO DAILY [facility] Last Admin: 08/19/16 11:14 Dose: 10 mg Lorazepam (Ativan) 2 mg IVP Q2 PRN; Protocol PRN Reason: Anxiety Last Admin: 08/20/16 01:52 Dose: 2 mg Lorazepam (Ativan) 3 mg IVP Q2H PRN; Protocol PRN Reason: Agitation Last Admin: 08/20/16 05:07 Dose: 3 mg Magnesium Oxide (Mag-Ox) 400 mg PO BID [facility] Last Admin: 08/19/16 17:41 Dose: 400 mg Metoprolol Tartrate (Lopressor) 25 mg PO Q12 [facility] Last Admin: 08/19/16 21:19 Dose: 25 mg Multivitamins (Thera Tab) 1 tab PO DAILY [facility] Last Admin: 08/19/16 10:16 Dose: 1 tab Pantoprazole Sodium (Protonix Ec Tab) 40 mg PO 0630 [facility] Last Admin: 08/20/16 05:56 Dose: Not Given Potassium Chloride (Klor-Con 10) 40 meq PO BRK [facility] Last Admin: 08/19/16 17:41 Dose: 40 meq Prednisone (Prednisone Tab) 30 mg PO DAILY [facility] Last Admin: 08/19/16 11:14 Dose: 30 mg Thiamine HCl (Vitamin B1 Inj) 100 mg IV DAILY [facility] Physical Exam - Constitutional Appears: Confused - Head Exam Head Exam: ATRAUMATIC, NORMOCEPHALIC - Eye Exam Eye Exam: EOMI, Normal appearance - ENT Exam ENT Exam: Mucous Membranes Moist - Respiratory Exam Respiratory Exam: NORMAL BREATHING PATTERN - Cardiovascular Exam Cardiovascular Exam: +S1, +S2 - GI/Abdominal Exam GI & Abdominal Exam: Soft. absent: Distended, Firm, Guarding - Extremities Exam Additional comments: Bilateral scaling skin lesions, non tender, not bleeding - Neurological Exam Neurological exam: Altered Results - Vital Signs Recent Vital Signs: Last Vital Signs Temp 98.4 F 08/19/16 16:00 Pulse 106 H 08/19/16 21:38 Resp 20 08/19/16 16:00 BP 165/91 H 08/19/16 21:19 Pulse Ox 98 08/19/16 16:00 - Labs Result Diagrams: 08/19/16 06:30 08/19/16 06:30 Labs: Laboratory Results - last 24 hr 08/19/16 08/19/16 06:30 06:30 WBC 5.8 RBC 4.18 Hgb 13.3 L Hct 38.2 L MCV 91.4 MCH 31.8 MCHC 34.8 RDW 13.0 Plt Count 205 MPV 9.7 Gran % 75.7 H Lymph % (Auto) 12.7 L [place] % (Auto) 6.1 H Eos % (Auto) 5.2 H Baso % (Auto) 0.3 Gran # 4.35 Lymph # 0.7 L [place] # 0.4 Eos # 0.3 Baso # 0.02 Sodium 138 Potassium 3.3 L Chloride 99 Carbon Dioxide 28 Anion Gap 14 BUN 11 Creatinine 0.8 Est GFR ( Amer) > 60 Est GFR (Non-Af Amer) > 60 Random Glucose 129 H Calcium 9.3 Magnesium 1.6 L Total Bilirubin 1.9 H AST 62 H ALT 28 Alkaline Phosphatase 117 Total Protein 9.8 H Albumin 3.9 Globulin 6.0 Albumin/Globulin Ratio 0.7 L Assessment & Plan - Assessment and Plan (Free Text) Assessment: This is a 61M with Delerium tremens and a rash on his legs Punch Biopsy Today Continue medical management per primary team D/W Dr. Guero Wren PGY-1 [id number]
[2016-08-20 06:19] LABS: ADD MANUAL DIFF? NO
[2016-08-20 06:24] LABS: BASO # 0.03 K/mm3 (0.0-2.0); BASO % 0.3 % (0.0-3.0); EOS # 0.2 (0.0-0.7); EOS % 1.6 % (1.5-5.0); GRAN # 8.16 (1.4-6.5); GRAN % 70.6 % (50.0-68.0); HEMATOCRIT 38.1 % (42.0-52.0); LYMPH % 17.5 % (22.0-35.0); MEAN CELL VOLUME 91.8 fL (80.0-105.0); MEAN CORPUSCULAR HEMOGLOBIN 31.1 pg (25.0-35.0); MEAN CORPUSCULAR HGB CONC 33.9 g/dl (31.0-37.0); MEAN PLATELET VOLUME 9.8 fl (7.0-11.0); MONO # 1.2 (0.1-0.6); PLATELET COUNT 234 10^3/uL (120.0-450.0); WHITE BLOOD COUNT 11.6 10^3/ul (4.5-11.0)
--- NOTE | 2016-08-20 06:25 | CP.PCM.CON ---
<Jesica Pickard - Last Filed: 08/20/16 06:21> History of Present Illness - History of Present Illness History of Present Illness: Critical Care Consult note for Dr. Yuki Pickard, PGY-1 Pt S & E at bedside. History as per EMR and attending due to AMS. 61M w/no sig PMH admitted to ICU for Delirium Tremens x 1 day. Pt originally admitted on 08/18 for diffuse, pruritic rash x 4 mos. Rash lesions grew in size/ spread over body, non painful, non draining. Pt admitted to med-surg, placed on CIWA protocol, however pt w/agitation, hallucinations, and tremors throughout night of admission to ICU. Pt attempting to get out of bed- requiring Radu vest for safety. Pt with hallucinations, answering questions inappropriately, talking to people that are not there. PMH: None PSH: Unknown All: NKDA SH: Denies tobacco use, admits to ETOH use - 5-7 beers/day w/shots of whiskey or bacardi x many yrs, denies illicit drug use PMD: Clinic in [place] Review of Systems - Review of Systems Systems not reviewed;Unavailable: Altered Mental Status All systems: reviewed and no additional remarkable complaints except - Constitutional Constitutional: absent: Chills, Fever - Cardiovascular Cardiovascular: absent: Chest Pain - Gastrointestinal Gastrointestinal: absent: Abdominal Pain - Integumentary Integumentary: Rash Past Patient History - Past Social History Smoking Status: Never Smoked - CARDIAC Hx Hypertension: Yes - PULMONARY Hx Respiratory Disorders: No - NEUROLOGICAL Hx Dementia: Yes - HEENT Hx HEENT Problems: No - RENAL Hx Chronic Kidney Disease: No - ENDOCRINE/METABOLIC Hx Endocrine Disorders: No - HEMATOLOGICAL/ONCOLOGICAL Hx Blood Disorders: No - INTEGUMENTARY Hx Dermatological Problems: No - MUSCULOSKELETAL/RHEUMATOLOGICAL Hx Musculoskeletal Disorders: No - GASTROINTESTINAL Hx Gastrointestinal Disorders: No - GENITOURINARY/GYNECOLOGICAL Hx Genitourinary Disorders: No - PSYCHIATRIC Hx Psychophysiologic Disorder: No Hx Substance Use: No - SURGICAL HISTORY Hx Surgeries: No - ANESTHESIA Hx Anesthesia: No Meds Allergies/Adverse Reactions: Allergies Allergy/AdvReac Type Severity Reaction Status Date / Time No Known Allergies Allergy Verified 08/17/16 17:30 - Medications Medications: Current Medications Chlordiazepoxide (Librium) 25 mg PO Q8 ANH PRN Reason: Protocol Last Admin: 08/20/16 05:08 Dose: 25 mg Clotrimazole (Lotrimin 1%) 0 gm TOP BID [facility] Last Admin: 08/19/16 17:41 Dose: 1 applic Desoximetasone (Topicort 0.25%) 0 ea TOP BID [facility] Last Admin: 08/19/16 17:42 Dose: 1 applic Fluconazole (Diflucan) 100 mg PO DAILY [facility] PRN Reason: Protocol Last Admin: 08/19/16 10:17 Dose: 100 mg Folic Acid (Folic Acid) 1 mg PO DAILY [facility] Last Admin: 08/19/16 10:17 Dose: 1 mg Heparin Sodium (Porcine) (Heparin) 5,000 units SC Q8 ANH PRN Reason: Protocol Last Admin: 08/20/16 05:08 Dose: Not Given Doxycycline Hyclate 100 mg/ (Sodium Chloride) 100 mls @ 100 mls/hr IVPB Q12 ANH PRN Reason: Protocol Last Admin: 08/19/16 21:20 Dose: 100 mls/hr Dexmedetomidine HCl (Precedex 4 Mcg/Ml (100 Ml)) 400 mcg in 100 mls @ 3.402 mls /hr IV .Q24H PRN; Protocol; 0.2 MCG/KG/HR PRN Reason: Agitation Loratadine (Claritin) 10 mg PO DAILY [facility] Last Admin: 08/19/16 11:14 Dose: 10 mg Lorazepam (Ativan) 2 mg IVP Q2 PRN; Protocol PRN Reason: Anxiety Last Admin: 08/20/16 01:52 Dose: 2 mg Lorazepam (Ativan) 3 mg IVP Q2H PRN; Protocol PRN Reason: Agitation Last Admin: 08/20/16 05:07 Dose: 3 mg Magnesium Oxide (Mag-Ox) 400 mg PO BID [facility] Last Admin: 08/19/16 17:41 Dose: 400 mg Metoprolol Tartrate (Lopressor) 25 mg PO Q12 [facility] Last Admin: 08/19/16 21:19 Dose: 25 mg Multivitamins (Thera Tab) 1 tab PO DAILY [facility] Last Admin: 08/19/16 10:16 Dose: 1 tab Pantoprazole Sodium (Protonix Ec Tab) 40 mg PO 0630 [facility] Last Admin: 08/20/16 05:56 Dose: Not Given Potassium Chloride (Klor-Con 10) 40 meq PO BRK [facility] Last Admin: 08/19/16 17:41 Dose: 40 meq Prednisone (Prednisone Tab) 30 mg PO DAILY [facility] Last Admin: 08/19/16 11:14 Dose: 30 mg Thiamine HCl (Vitamin B1 Inj) 100 mg IV DAILY [facility] Physical Exam - Constitutional Appears: Unkempt, Agitated, Confused - Head Exam Head Exam: ATRAUMATIC, NORMAL INSPECTION, NORMOCEPHALIC - Eye Exam Eye Exam: EOMI, Normal appearance. absent: Scleral icterus Pupil Exam: NORMAL ACCOMODATION, PERRL - ENT Exam ENT Exam: Mucous Membranes Dry, Normal Exam - Neck Exam Neck exam: Positive for: Full Rom, Normal Inspection - Respiratory Exam Respiratory Exam: Clear to Auscultation Bilateral, NORMAL BREATHING PATTERN. absent: Accessory Muscle Use - Cardiovascular Exam Cardiovascular Exam: Tachycardia, +S1, +S2 - GI/Abdominal Exam GI & Abdominal Exam: Normal Bowel Sounds, Soft. absent: Distended, Tenderness - Extremities Exam Extremities exam: Positive for: full ROM. Negative for: normal inspection ( rash over extremities), pedal edema, tenderness - Neurological Exam Neurological exam: Altered Additional comments: B/L UE tremors - Psychiatric Exam Psychiatric exam: Agitated - Skin Skin Exam: Rash (multiple circular lesions with flaky skin over lower extremities), Warm Results - Vital Signs Recent Vital Signs: Last Vital Signs Temp 98.4 F 08/19/16 16:00 Pulse 106 H 08/19/16 21:38 Resp 20 08/19/16 16:00 BP 165/91 H 08/19/16 21:19 Pulse Ox 98 08/19/16 16:00 - Labs Result Diagrams: 08/19/16 06:30 08/19/16 06:30 Labs: Laboratory Results - last 24 hr 08/19/16 08/19/16 06:30 06:30 WBC 5.8 RBC 4.18 Hgb 13.3 L Hct 38.2 L MCV 91.4 MCH 31.8 MCHC 34.8 RDW 13.0 Plt Count 205 MPV 9.7 Gran % 75.7 H Lymph % (Auto) 12.7 L Fountain % (Auto) 6.1 H Eos % (Auto) 5.2 H Baso % (Auto) 0.3 Gran # 4.35 Lymph # 0.7 L Fountain # 0.4 Eos # 0.3 Baso # 0.02 Sodium 138 Potassium 3.3 L Chloride 99 Carbon Dioxide 28 Anion Gap 14 BUN 11 Creatinine 0.8 Est GFR ( Amer) > 60 Est GFR (Non-Af Amer) > 60 Random Glucose 129 H Calcium 9.3 Magnesium 1.6 L Total Bilirubin 1.9 H AST 62 H ALT 28 Alkaline Phosphatase 117 Total Protein 9.8 H Albumin 3.9 Globulin 6.0 Albumin/Globulin Ratio 0.7 L Assessment & Plan - Assessment and Plan (Free Text) Assessment: 61 M w/no sig PMH admitted to ICU for DTs x 1 day prior to transfer. Pt agitated, hallucinating overnight, attempting to get out of bed. Pt requiring Radu vest for safety. Plan: Neuro Delirium tremens HOB to 30 degrees Neuro checks Q4H Started Precedex drip Continue Librium 25mg Q8H Continue Folic Acid Continue Vitamin B1 Continue MV Cont Ativan PRN Monitor Cardio BP 165/91 HR low 100's Target euvolemia Cont Lopressor 25mg Q12H FU echo Monitor Pulm O2 via NC Target SaO2> 94% Cont Claritin 10mg QD Monitor Renal BUN 11 Cr 0.8 Hypokalemia K 3.3 Cont KCl 40 mEq Brk Hypomagnesemia Mg 1.6 Cont MgOx 400mg BID Monitor GI Regular diet T bili 1.9 AST 62 ALT 28 ALP 117 Protonix Endo BS 129 Target euglycemia Monitor Monitor UOP ID Afebrile No leukocytosis Heme Hgb 13.3 Hct 38.2 INR 1.06 ESR 52 Musculosketal Diffuse body rash Cont on Doxycycline 100mg Q12H Cont Diflucan 100mg QD Cont Clotrimazole Cont Desoximetasone Cont Prednisone 30mg QD Restraints Fall precautions GI/DVT ppx Heparin Protonix Dispo Admit to ICU VS @4H Seizure precautions DW attending - Date & Time Date: 08/20/16 Time: 06:24 <Delon Hill Q - Last Filed: 08/20/16 07:04> Meds - Medications Medications: Current Medications Chlordiazepoxide (Librium) 25 mg PO Q8 ANH PRN Reason: Protocol Last Admin: 08/20/16 05:08 Dose: 25 mg Clotrimazole (Lotrimin 1%) 0 gm TOP BID [facility] Last Admin: 08/19/16 17:41 Dose: 1 applic Desoximetasone (Topicort 0.25%) 0 ea TOP BID [facility] Last Admin: 08/19/16 17:42 Dose: 1 applic Fluconazole (Diflucan) 100 mg PO DAILY [facility] PRN Reason: Protocol Last Admin: 08/19/16 10:17 Dose: 100 mg Folic Acid (Folic Acid) 1 mg PO DAILY [facility] Last Admin: 08/19/16 10:17 Dose: 1 mg Heparin Sodium (Porcine) (Heparin) 5,000 units SC Q8 ANH PRN Reason: Protocol Last Admin: 08/20/16 05:08 Dose: Not Given Doxycycline Hyclate 100 mg/ (Sodium Chloride) 100 mls @ 100 mls/hr IVPB Q12 ANH PRN Reason: Protocol Last Admin: 08/19/16 21:20 Dose: 100 mls/hr Dexmedetomidine HCl (Precedex 4 Mcg/Ml (100 Ml)) 400 mcg in 100 mls @ 3.402 mls /hr IV .Q24H PRN; Protocol; 0.2 MCG/KG/HR PRN Reason: Agitation Last Titration: 08/20/16 06:54 Dose: 0.6 mcg/kg/hr, 10.206 mls/hr Potassium Chloride/Dextrose/Sod Cl (Potassium Chl 30 Meq In D5-1/2ns) 1,000 mls @ 100 mls/hr IV .Q10H [facility] Magnesium Sulfate 2 gm/ Sodium (Chloride) 104 mls @ 102 mls/hr IVPB ONCE ONE Stop: 08/20/16 07:37 Loratadine (Claritin) 10 mg PO DAILY [facility] Last Admin: 08/19/16 11:14 Dose: 10 mg Lorazepam (Ativan) 2 mg IVP Q2 PRN; Protocol PRN Reason: Anxiety Last Admin: 08/20/16 01:52 Dose: 2 mg Lorazepam (Ativan) 3 mg IVP Q2H PRN; Protocol PRN Reason: Agitation Last Admin: 08/20/16 06:59 Dose: 3 mg Magnesium Oxide (Mag-Ox) 400 mg PO BID [facility] Last Admin: 08/19/16 17:41 Dose: 400 mg Metoprolol Tartrate (Lopressor) 25 mg PO Q12 [facility] Last Admin: 08/19/16 21:19 Dose: 25 mg Multivitamins (Thera Tab) 1 tab PO DAILY [facility] Last Admin: 08/19/16 10:16 Dose: 1 tab Pantoprazole Sodium (Protonix Ec Tab) 40 mg PO 0630 [facility] Last Admin: 08/20/16 05:56 Dose: Not Given Potassium Chloride (Klor-Con 10) 40 meq PO BRK [facility] Last Admin: 08/19/16 17:41 Dose: 40 meq Prednisone (Prednisone Tab) 30 mg PO DAILY [facility] Last Admin: 08/19/16 11:14 Dose: 30 mg Thiamine HCl (Vitamin B1 Inj) 100 mg IV DAILY [facility] Results - Vital Signs Recent Vital Signs: Last Vital Signs Temp 98.4 F 08/19/16 16:00 Pulse 106 H 08/19/16 21:38 Resp 20 08/19/16 16:00 BP 165/91 H 08/19/16 21:19 Pulse Ox 98 08/19/16 16:00 - Labs Result Diagrams: 08/20/16 06:00 08/19/16 06:30 Labs: Laboratory Results - last 24 hr 08/19/16 08/19/16 08/20/16 06:30 06:30 06:00 WBC 5.8 11.6 H D RBC 4.18 4.15 Hgb 13.3 L 12.9 L Hct 38.2 L 38.1 L MCV 91.4 91.8 MCH 31.8 31.1 MCHC 34.8 33.9 RDW 13.0 13.0 Plt Count 205 234 MPV 9.7 9.8 Gran % 75.7 H 70.6 H Lymph % (Auto) 12.7 L 17.5 L Fountain % (Auto) 6.1 H 10.0 H Eos % (Auto) 5.2 H 1.6 Baso % (Auto) 0.3 0.3 Gran # 4.35 8.16 H Lymph # 0.7 L 2.0 Fountain # 0.4 1.2 H Eos # 0.3 0.2 Baso # 0.02 0.03 Sodium 138 Potassium 3.3 L Chloride 99 Carbon Dioxide 28 Anion Gap 14 BUN 11 Creatinine 0.8 Est GFR ( Amer) > 60 Est GFR (Non-Af Amer) > 60 Random Glucose 129 H Calcium 9.3 Magnesium 1.6 L Total Bilirubin 1.9 H AST 62 H ALT 28 Alkaline Phosphatase 117 Total Protein 9.8 H Albumin 3.9 Globulin 6.0 Albumin/Globulin Ratio 0.7 L Attending/Attestation - Attestation I have personally seen and examined this patient.: Yes I have fully participated in the care of the patient.: Yes I have reviewed all pertinent clinical information: Yes Notes (Text): 08/20/16 07:04 I agree with the above mentioned note by Dr. Negron with the addition/exception of the followin61 y/o male with a PMHx etoh abuse was admitted 2 days ago for a lower extremity rash which had recently been worsening. The patient has a heavy history of alcohol abuse and overnight went into alcohol withdrawal delerium requiring multiple doses of Ativan which did not alleviate his symptoms. Patient at one point got close to 10mg of IV Ativan without a significant reduction in symptoms so the decision was made to transfer him to the ICU in order to monitor him closely on a continuous dexmedetomidine drip along with Ativan prn. labs and images available thus far have been reviewed; scheduled for a punch biopsy of his rash later today by the surgical team case discussed at length with the house doctor (Sirisha) total time of care: 40 minutes <Markos Grimm P - Last Filed: 08/30/16 19:38> Results - Vital Signs Recent Vital Signs: Last Vital Signs Temp 98.3 F 08/24/16 06:00 Pulse 81 08/24/16 09:31 Resp 20 08/24/16 06:00 BP 147/91 H 08/24/16 09:31 Pulse Ox 99 08/24/16 06:00 - Labs Result Diagrams: 08/24/16 06:30 08/24/16 06:30
[2016-08-20] MEDS: Dexmedetomidine HCl 4mcg/ml 400 MCG/100 ML BOTTLE IV PRN ×2 (06:30→11:37)
[2016-08-20] MEDS ORDERED: Magnesium Sulfate 2 GM in Sodium Chloride 0.9% 100 ML IVPB ONE (06:36)
[2016-08-20] MEDS ORDERED: Potassium Chloride 20 mEq ER Tab PO ONE (06:38)
[2016-08-20] MEDS ORDERED: Potassium Chl 30 mEq in D5-1/2 1,000 ML IV SCH (06:45)
[2016-08-20 06:54] LABS: ALB/GLOB RATIO 0.7 (1.1-1.8); ALKALINE PHOSPHATASE 110 U/L (38-133); ALT/SGPT 25 U/L (7-56); AST/SGOT 61 U/L (15-59); BILIRUBIN,TOTAL 1.2 mg/dL (0.2-1.3); BLOOD UREA NITROGEN 14 mg/dL (7-21); CALCIUM 9.2 mg/dL (8.4-10.5); CARBON DIOXIDE 23 mmol/L (21-33); CHLORIDE 103 mmol/L (98-107); GFR AFRICAN-AMERICAN > 60; GLUCOSE,RANDOM 111 mg/dL (70-110); POTASSIUM 3.5 mmol/L (3.6-5.0); SODIUM 140 mmol/L (132-148); TOTAL PROTEIN 9.5 g/dL (5.8-8.3)
--- NOTE | 2016-08-20 08:55 | CP.CCUPN ---
<Meño Christianson - Last Filed: 08/20/16 08:52> CCU Subjective - Physician Review Subjective (Free Text): 08/20/16 08:52 Patient seen and examined at bedside in ICU. Alternates between agitated and attempting to climb out of bed, and somnolent/snoring. When awake, is clearly disoriented; when speaking with staff he states that he is home, not in a hospital. Still having intermittent DTs, decreasing on Precedex drip. No acute pain or distress noted on exam. CCU Objective - Vital Signs / Intake & Output Intake and Output (Last 8hrs): Intake & Output 08/19/16 08/20/16 08/20/16 22:59 06:59 14:59 Intake Total 0 Output Total 1100 Balance -1100 0 Intake: IV 0 Output: Urine 1100 Urine, Voided 1100 Other: # Bowel Movements 1 - Physical Exam Head: Positive for: Atraumatic, Normocephalic. Negative for: Abrasion, Laceration Pupils: Positive for: PERRL Extroacular Muscles: Positive for: Other (not following commands for EOMI testing, but able to track multiple different staff members in room at one time , no obvious nystagmus or deficit noted). Negative for: Entrapment Conjunctiva: Positive for: Normal. Negative for: Injected Mouth: Positive for: Moist Mucous Membranes Nose (External): Positive for: Atraumatic. Negative for: Abrasion, Contusion, Laceration Neck: Positive for: Normal Range of Motion, Trachea Midline. Negative for: MIDLINE TENDERNESS Respiratory/Chest: Positive for: Clear to Auscultation, Good Air Exchange. Negative for: Respiratory Distress, Accessory Muscle Use, Wheezes, Retracting, Rhonchi Cardiovascular: Positive for: Normal S1, S2, Tachycardic (rapid rate regular rhythm). Negative for: Regular Rate and Rhythm, Murmurs Abdomen: Positive for: Normal Bowel Sounds. Negative for: Tenderness, Distention, Peritoneal Signs Back: Positive for: Normal Inspection. Negative for: CVA Tenderness Upper Extremity: Positive for: Normal Inspection, Normal ROM, NORMAL PULSES, Capillary Refill < 2s. Negative for: Cyanosis, Edema, Swelling, Deformity Lower Extremity: Positive for: Edema, NORMAL PULSES, Normal ROM, Tenderness, Swelling, Erythema, Capillary Refill < 2 s. Negative for: CALF TENDERNESS, Cyanosis, Deformity Neurological: Positive for: CN II-XII Intact, Speech Normal, Motor Func Grossly Intact Skin: Positive for: Warm, Dry, Rashes (diffuse rash along multiple body sites, including abdomen), Normal Color Lymphatic: Negative for: Inguinal Adenopathy Psychiatric: Positive for: Alert, Anxious, Agitated. Negative for: Oriented x 3 , Normal Insight, Normal Concentration, Normal Affect, Normal Mood Other physical findings (Free Text): intermittently awake and alert, agitated, but confused, disoriented, thinks he is at home, previously reported audio/visual hallucination - Medications Active Medications: Active Medications Generic Name Dose Route Start Last Admin Trade Name Freq PRN Reason Stop Dose Admin Chlordiazepoxide 25 mg 08/20/16 01:34 08/20/16 05:08 Librium PO 25 mg Q8 ANH Administration Protocol Clotrimazole 0 gm 08/19/16 10:00 08/19/16 17:41 Lotrimin 1% TOP 1 applic BID ANH Administration Desoximetasone 0 ea 08/19/16 10:00 08/19/16 17:42 Topicort 0.25% TOP 1 applic BID ANH Administration Fluconazole 100 mg 08/18/16 10:00 08/19/16 10:17 Diflucan PO 100 mg DAILY ANH Administration Protocol Folic Acid 1 mg 08/18/16 10:00 08/19/16 10:17 Folic Acid PO 1 mg DAILY ANH Administration Heparin Sodium (Porcine) 5,000 units 08/18/16 06:00 08/20/16 05:08 Heparin SC Not Given Q8 ANH Protocol Doxycycline Hyclate 100 mg/ 100 mls @ 100 mls/hr 08/17/16 22:00 08/19/16 21: 20 Sodium Chloride IVPB 100 mls/hr Q12 ANH Administration Protocol Dexmedetomidine HCl 400 mcg in 100 mls @ 3.402 mls/hr 08/20/16 05:48 06:54 Precedex 4 Mcg/Ml (100 Ml) IV 0.6 mcg/kg/hr .Q24H PRN 10.206 mls/hr Agitation Titration Protocol 0.2 MCG/KG/HR Potassium Chloride/Dextrose/Sod Cl 1,000 mls @ 100 mls/hr 08/20/16 06:45 07:54 Potassium Chl 30 Meq In D5-1/2ns IV 100 mls/hr .Q10H ANH Administration Loratadine 10 mg 08/19/16 10:45 08/19/16 11:14 Claritin PO 10 mg DAILY ANH Administration Lorazepam 2 mg 08/20/16 01:33 08/20/16 01:52 Ativan IVP 2 mg Q2 PRN Administration Anxiety Protocol Lorazepam 3 mg 08/20/16 03:15 08/20/16 06:59 Ativan IVP 3 mg Q2H PRN Administration Agitation Protocol Magnesium Oxide 400 mg 08/19/16 18:00 08/19/16 17:41 Mag-Ox PO 400 mg BID ANH Administration Metoprolol Tartrate 25 mg 08/19/16 22:00 08/19/16 21:19 Lopressor PO 25 mg Q12 ANH Administration Multivitamins 1 tab 08/18/16 10:00 08/19/16 10:16 Thera Tab PO 1 tab DAILY ANH Administration Pantoprazole Sodium 40 mg 08/18/16 06:30 08/20/16 05:56 Protonix Ec Tab PO Not Given 0630 ANH Potassium Chloride 40 meq 08/19/16 17:30 08/19/16 17:41 Klor-Con 10 PO 40 meq BRK ANH Administration Prednisone 30 mg 08/19/16 10:45 08/19/16 11:14 Prednisone Tab PO 30 mg DAILY ANH Administration Thiamine HCl 100 mg 08/20/16 10:00 Vitamin B1 Inj IV DAILY ANH - Patient Studies Lab Studies: Lab Studies 08/20/16 08/20/16 08/20/16 Range/Units 06:00 06:00 06:00 WBC 11.6 H D (4.5-11.0) 10^3/ul RBC 4.15 (3.5-6.1) 10^6/uL Hgb 12.9 L (14.0-18.0) gm/dL Hct 38.1 L (42.0-52.0) % MCV 91.8 (80.0-105.0) fL MCH 31.1 (25.0-35.0) pg MCHC 33.9 (31.0-37.0) g/dl RDW 13.0 (11.5-14.5) % Plt Count 234 (120.0-450.0) 10^3/uL MPV 9.8 (7.0-11.0) fl Gran % 70.6 H (50.0-68.0) % Lymph % (Auto) 17.5 L (22.0-35.0) % [place] % (Auto) 10.0 H (1.0-6.0) % Eos % (Auto) 1.6 (1.5-5.0) % Baso % (Auto) 0.3 (0.0-3.0) % Gran # 8.16 H (1.4-6.5) Lymph # 2.0 (1.2-3.4) [place] # 1.2 H (0.1-0.6) Eos # 0.2 (0.0-0.7) Baso # 0.03 (0.0-2.0) K/mm3 Sodium 140 (132-148) mmol/L Potassium 3.5 L (3.6-5.0) mmol/L Chloride 103 (98-107) mmol/L Carbon Dioxide 23 (21-33) mmol/L Anion Gap 18 (10-20) BUN 14 (7-21) mg/dL Creatinine 0.8 (0.5-1.4) mg/dL Est GFR ( Amer) > 60 Est GFR (Non-Af Amer) > 60 Random Glucose 111 H (70-110) mg/dL Calcium 9.2 (8.4-10.5) mg/dL Magnesium 2.0 (1.7-2.2) mg/dL Total Bilirubin 1.2 (0.2-1.3) mg/dL AST 61 H (15-59) U/L ALT 25 (7-56) U/L Alkaline Phosphatase 110 (38-133) U/L Total Protein 9.5 H (5.8-8.3) g/dL Albumin 3.9 (3.0-4.8) g/dL Globulin 5.7 gm/dL Albumin/Globulin Ratio 0.7 L (1.1-1.8) TSH 3rd Generation 3.93 (0.46-4.68) mIU/mL Laboratory Results - last 24 hr 08/20/16 08/20/16 08/20/16 06:00 06:00 06:00 WBC 11.6 H D RBC 4.15 Hgb 12.9 L Hct 38.1 L MCV 91.8 MCH 31.1 MCHC 33.9 RDW 13.0 Plt Count 234 MPV 9.8 Gran % 70.6 H Lymph % (Auto) 17.5 L [place] % (Auto) 10.0 H Eos % (Auto) 1.6 Baso % (Auto) 0.3 Gran # 8.16 H Lymph # 2.0 Apache # 1.2 H Eos # 0.2 Baso # 0.03 Sodium 140 Potassium 3.5 L Chloride 103 Carbon Dioxide 23 Anion Gap 18 BUN 14 Creatinine 0.8 Est GFR ( Amer) > 60 Est GFR (Non-Af Amer) > 60 Random Glucose 111 H Calcium 9.2 Magnesium 2.0 Total Bilirubin 1.2 AST 61 H ALT 25 Alkaline Phosphatase 110 Total Protein 9.5 H Albumin 3.9 Globulin 5.7 Albumin/Globulin Ratio 0.7 L TSH 3rd Generation 3.93 Review of Systems - Review of Systems Systems not reviewed;Unavailable: Altered Mental Status Critical Care Progress Note - Nutrition Nutrition: Nutrition Category Date Time Status Regular Diet [DIET] Diets 08/18/16 Breakfast Ordered Assessment/Plan - Assessment and Plan (Free Text) Assessment: This is a 61 yo M with no reported PMH who was transferred to ICU due to DTs from Alcohol withdrawal, requiring Precedex drip. Plan: Neuro: -intermittently awake and alert, but completely disoriented -maintain normothermia -seizure precautions -DTs from EtOH withdrawal, on Precedex drip, Ativan PRN for breakthrough, can consider switching to Valium + PRN ativan to wean from Precedex drip -Restraints (Stephenson and wrists) due to AMS, high fall risk protocol when no longer on restraints -Psych consulted, appreciate all recs Pulm: -satting well on 2L NC -when on room air and snoring, desats to mid-80's, likely LOUISE, continue NC for O2 supplementation -maintain SaO2 > 90 and paO2 > 60 -aspiration precautions Cardio: -Tachycardic, likely 2/2 agitation vs EtOH withdrawal 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 -QTc prolonged at 462 on prior EKG, repeat EKG and f/u to reassess QTc -maintain MAP > 65 GI: -Regular diet -Protonix for GI ppx -Banana bag + folic acid + thiamine + KCl 20mEq 100cc/hr Renal: -Cr 0.8 -Making yellow urine -avoid nephrotoxic drugs where feasible -monitor and replete electrolytes as needed -maintain euvolemia and euglycemia (BG 140-180) ID: -WBCs 11.6, was 5.8; may be 2/2 to DTs vs agitation -On Doxycycline -Workup of diffuse skin rash as per ID -Skin punch biopsy obtained by Surgery yesterday will f/u -RPR, HIV 1&2 Heme: -hgb 12.9, stable -supplementing folic acid and thiamine via banana bag -continue to monitor Dispo: ICU, on precedex drip + PRN ativan pending transition to Valium + PRN ativan, pending rash workup FEN: Regular diet, Banana bag + KCl 20mEq Access: Peripheral IV Consults: Surgery, ID, Podiatry, Psych Ppx: Protonix for GI, SCDs for DVT Patient seen, reviewed, and discussed with attending, Dr. Staley. - Date & Time Date: 08/20/16 Time: 09:23 <Luís ESTEBAN,[facility] - Last Filed: 08/20/16 09:42> CCU Objective - Vital Signs / Intake & Output Intake and Output (Last 8hrs): Intake & Output 08/19/16 08/20/16 08/20/16 22:59 06:59 14:59 Intake Total 0 Output Total 1100 Balance -1100 0 Intake: IV 0 Output: Urine 1100 Urine, Voided 1100 Other: # Bowel Movements 1 - Medications Active Medications: Active Medications Generic Name Dose Route Start Last Admin Trade Name Freq PRN Reason Stop Dose Admin Chlordiazepoxide 25 mg 08/20/16 01:34 08/20/16 05:08 Librium PO 25 mg Q8 ANH Administration Protocol Clotrimazole 0 gm 08/19/16 10:00 08/19/16 17:41 Lotrimin 1% TOP 1 applic BID ANH Administration Desoximetasone 0 ea 08/19/16 10:00 08/19/16 17:42 Topicort 0.25% TOP 1 applic BID ANH Administration Fluconazole 100 mg 08/18/16 10:00 08/19/16 10:17 Diflucan PO 100 mg DAILY ANH Administration Protocol Heparin Sodium (Porcine) 5,000 units 08/18/16 06:00 08/20/16 05:08 Heparin SC Not Given Q8 ANH Protocol Doxycycline Hyclate 100 mg/ 100 mls @ 100 mls/hr 08/17/16 22:00 08/19/16 21: 20 Sodium Chloride IVPB 100 mls/hr Q12 ANH Administration Protocol Dexmedetomidine HCl 400 mcg in 100 mls @ 3.402 mls/hr 08/20/16 05:48 06:54 Precedex 4 Mcg/Ml (100 Ml) IV 0.6 mcg/kg/hr .Q24H PRN 10.206 mls/hr Agitation Titration Protocol 0.2 MCG/KG/HR Folic Acid 1 mg/ Thiamine HCl 1,021.2 mls @ 100 mls/hr 08/20/16 09:15 100 mg/ Multivitamins/Vitamin IV C 10 ml/ Potassium Chloride 20 .[id number] ANH meq/ Dextrose Loratadine 10 mg 08/19/16 10:45 08/19/16 11:14 Claritin PO 10 mg DAILY ANH Administration Lorazepam 2 mg 08/20/16 01:33 08/20/16 01:52 Ativan IVP 2 mg Q2 PRN Administration Anxiety Protocol Lorazepam 3 mg 08/20/16 03:15 08/20/16 06:59 Ativan IVP 3 mg Q2H PRN Administration Agitation Protocol Magnesium Oxide 400 mg 08/19/16 18:00 08/19/16 17:41 Mag-Ox PO 400 mg BID ANH Administration Metoprolol Tartrate 25 mg 08/19/16 22:00 08/19/16 21:19 Lopressor PO 25 mg Q12 ANH Administration Multivitamins 1 tab 08/18/16 10:00 08/19/16 10:16 Thera Tab PO 1 tab DAILY ANH Administration Pantoprazole Sodium 40 mg 08/18/16 06:30 08/20/16 05:56 Protonix Ec Tab PO Not Given 0630 ANH Potassium Chloride 40 meq 08/19/16 17:30 08/19/16 17:41 Klor-Con 10 PO 40 meq BRK ANH Administration Prednisone 30 mg 08/19/16 10:45 08/19/16 11:14 Prednisone Tab PO 30 mg DAILY ANH Administration - Patient Studies Lab Studies: Lab Studies 08/20/16 08/20/16 08/20/16 Range/Units 06:00 06:00 06:00 WBC 11.6 H D (4.5-11.0) 10^3/ul RBC 4.15 (3.5-6.1) 10^6/uL Hgb 12.9 L (14.0-18.0) gm/dL Hct 38.1 L (42.0-52.0) % MCV 91.8 (80.0-105.0) fL MCH 31.1 (25.0-35.0) pg MCHC 33.9 (31.0-37.0) g/dl RDW 13.0 (11.5-14.5) % Plt Count 234 (120.0-450.0) 10^3/uL MPV 9.8 (7.0-11.0) fl Gran % 70.6 H (50.0-68.0) % Lymph % (Auto) 17.5 L (22.0-35.0) % [place] % (Auto) 10.0 H (1.0-6.0) % Eos % (Auto) 1.6 (1.5-5.0) % Baso % (Auto) 0.3 (0.0-3.0) % Gran # 8.16 H (1.4-6.5) Lymph # 2.0 (1.2-3.4) [place] # 1.2 H (0.1-0.6) Eos # 0.2 (0.0-0.7) Baso # 0.03 (0.0-2.0) K/mm3 Sodium 140 (132-148) mmol/L Potassium 3.5 L (3.6-5.0) mmol/L Chloride 103 (98-107) mmol/L Carbon Dioxide 23 (21-33) mmol/L Anion Gap 18 (10-20) BUN 14 (7-21) mg/dL Creatinine 0.8 (0.5-1.4) mg/dL Est GFR ( Amer) > 60 Est GFR (Non-Af Amer) > 60 Random Glucose 111 H (70-110) mg/dL Calcium 9.2 (8.4-10.5) mg/dL Magnesium 2.0 (1.7-2.2) mg/dL Total Bilirubin 1.2 (0.2-1.3) mg/dL AST 61 H (15-59) U/L ALT 25 (7-56) U/L Alkaline Phosphatase 110 (38-133) U/L Total Protein 9.5 H (5.8-8.3) g/dL Albumin 3.9 (3.0-4.8) g/dL Globulin 5.7 gm/dL Albumin/Globulin Ratio 0.7 L (1.1-1.8) TSH 3rd Generation 3.93 (0.46-4.68) mIU/mL Laboratory Results - last 24 hr 08/20/16 08/20/16 08/20/16 06:00 06:00 06:00 WBC 11.6 H D RBC 4.15 Hgb 12.9 L Hct 38.1 L MCV 91.8 MCH 31.1 MCHC 33.9 RDW 13.0 Plt Count 234 MPV 9.8 Gran % 70.6 H Lymph % (Auto) 17.5 L [place] % (Auto) 10.0 H Eos % (Auto) 1.6 Baso % (Auto) 0.3 Gran # 8.16 H Lymph # 2.0 [place] # 1.2 H Eos # 0.2 Baso # 0.03 Sodium 140 Potassium 3.5 L Chloride 103 Carbon Dioxide 23 Anion Gap 18 BUN 14 Creatinine 0.8 Est GFR ( Amer) > 60 Est GFR (Non-Af Amer) > 60 Random Glucose 111 H Calcium 9.2 Magnesium 2.0 Total Bilirubin 1.2 AST 61 H ALT 25 Alkaline Phosphatase 110 Total Protein 9.5 H Albumin 3.9 Globulin 5.7 Albumin/Globulin Ratio 0.7 L TSH 3rd Generation 3.93 EKG/Cardiology Studies: Cardiology / EKG Studies 08/20/16 09:15 EKG [ELECTROCARDIOGRAM] DAILY Comment: Reason For Exam: asses QTc Critical Care Progress Note - Nutrition Nutrition: Nutrition Category Date Time Status Regular Diet [DIET] Diets 08/18/16 Breakfast Ordered Attending/Attestation - Attestation I have personally seen and examined this patient.: Yes I have fully participated in the care of the patient.: Yes I have reviewed all pertinent clinical information: Yes Notes (Text): 08/20/16 09:37 61 y/o M w/ DT Overnight transfer to ICU for increasing needs of medications to controll symptoms of DT Currently on Precedex (1.0) Started on Valium to help bridge off Precedex. Thiamine/Folate/MV Replete Electrolytes as needed . Monitor for Risk of harm to self and others. No seizures noted. Rash Unclear cause, work up in progress from [facility]. On steroids per ID and pcp Psoriasis ? dvt p Heparin sq tid. cc time 45 min
[2016-08-20] MEDS ORDERED: Folic Acid 1 MG, Thiamine 100 MG, Multivitamin (MVI) 10 ML, Potassium Chloride 20 MEQ i... IV SCH (09:15)
[2016-08-20] MEDS: Multivitamin Therapeutic Tab PO SCH (09:57)
[2016-08-20] MEDS ORDERED: Thiamine 100 mg/ml Inj IV SCH (10:00)
[2016-08-20] MEDS: Magnesium Oxide 400 mg Tab UD PO SCH ×2 (10:42→18:20)
--- NOTE | 2016-08-20 10:43 | RAD ---
HISTORY: inc wbc COMPARISON: 08/17/2016 FINDINGS: LUNGS: No active pulmonary disease. PLEURA: No significant pleural effusion identified, no pneumothorax apparent. CARDIOVASCULAR: Normal. OSSEOUS STRUCTURES: No significant abnormalities. VISUALIZED UPPER ABDOMEN: Normal. OTHER FINDINGS: None. IMPRESSION: No active disease.
--- NOTE | 2016-08-20 10:44 | PN ---
DATE: 08/20/2016 The patient is in bed in no acute distress, nontoxic. He is transferred to ICU for possible complica tions of alcohol withdrawal. PHYSICAL EXAMINATION: VITAL SIGNS: Temperature is 98, blood pressure is 160/90, respiratory rate of 20, heart rate 106. HEENT: Unremarkable. NECK: Supple. LUNGS: Have decreased breath sounds. HEART: Normal S1, S2. ABDOMEN: Soft, nontender. LABORATORY DATA: Reveals a white count of 11,000, hemoglobin of 12, platelets of 234 and BUN of 14, creatinine of 0.8. HIV is negative. Review of the medications reveals the patient to be on p.o. Diflucan and IV doxycycline, p.o. prednis one. ASSESSMENT AND PLAN: This is a 61-year-old with a rash, has been treated for scabies and autoimmune related psoriasis must be ruled out. Syphilis should be ruled out. Status post biopsy, awaiting for biopsy results. FTA and RPR will be ordered. We will discontinue the doxycycline and will also disco ntinue the IV antibiotics. The patient is on 30 mg of prednisone a day. The patient does have mild elevation of white count. Will repeat ruggiero cultures and a procalcitonin. We will follow closely with you. Rosendo Pack MD cc: 350 TT: 08/20/2016 10:43:45 Confirmation # [id number] Dictation # [id number] [email or web address]
[2016-08-20] MEDS: Clotrimazole 1% Cream(30 gm) TOP SCH ×2 (10:47→18:00)
[2016-08-20] MEDS: Desoximetasone 0.25% Cream(15 gm) TOP SCH ×2 (10:48→18:37)
--- NOTE | 2016-08-20 11:03 | CP.PCM.PN ---
<Ruma Antoine - Last Filed: 08/20/16 11:00> Subjective - Date & Time of Evaluation Date of Evaluation: 08/20/16 Time of Evaluation: 11:00 - Subjective Subjective: 61 y/o male seen at bedside in CCU for bilateral leg swelling and rash. Patient resting comfortably in NAD and AAOx3. Patient denies any pain in his feet. he denies any other pedal complaints. Patient states that his legs sometimes swells and become very red. patient denies n/f/v/c/d/sob. Objective - Vital Signs/Intake and Output Vital Signs (last 24 hours): Temp Pulse Resp BP Pulse Ox 98.4 F 106 H 20 165/91 H 98 08/19/16 16:00 08/19/16 21:38 08/19/16 16:00 08/19/16 21:19 08/19/16 16:00 Intake and Output: 08/20/16 08/20/16 06:59 18:59 Intake Total 0 Output Total 1100 Balance -1100 - Medications Medications: Current Medications Chlordiazepoxide (Librium) 25 mg PO Q8 ANH PRN Reason: Protocol Last Admin: 08/20/16 05:08 Dose: 25 mg Clotrimazole (Lotrimin 1%) 0 gm TOP BID ANH Last Admin: 08/20/16 10:47 Dose: 1 applic Desoximetasone (Topicort 0.25%) 0 ea TOP BID ANH Last Admin: 08/20/16 10:48 Dose: 1 applic Fluconazole (Diflucan) 100 mg PO DAILY ANH PRN Reason: Protocol Last Admin: 08/20/16 09:57 Dose: Not Given Heparin Sodium (Porcine) (Heparin) 5,000 units SC Q8 ANH PRN Reason: Protocol Last Admin: 08/20/16 05:08 Dose: Not Given Dexmedetomidine HCl (Precedex 4 Mcg/Ml (100 Ml)) 400 mcg in 100 mls @ 3.402 mls /hr IV .Q24H PRN; Protocol; 0.2 MCG/KG/HR PRN Reason: Agitation Last Titration: 08/20/16 06:54 Dose: 0.6 mcg/kg/hr, 10.206 mls/hr Folic Acid 1 mg/ Thiamine HCl 100 mg/ Multivitamins/Vitamin C 10 ml/ Potassium Chloride 20 meq/ Dextrose 1,021.2 mls @ 100 mls/hr IV .[id number] [facility] Last Admin: 08/20/16 09:52 Dose: 100 mls/hr Loratadine (Claritin) 10 mg PO DAILY [facility] Last Admin: 08/20/16 10:42 Dose: Not Given Lorazepam (Ativan) 2 mg IVP Q2 PRN; Protocol PRN Reason: Anxiety Last Admin: 08/20/16 01:52 Dose: 2 mg Lorazepam (Ativan) 3 mg IVP Q2H PRN; Protocol PRN Reason: Agitation Last Admin: 08/20/16 06:59 Dose: 3 mg Magnesium Oxide (Mag-Ox) 400 mg PO BID [facility] Last Admin: 08/20/16 10:42 Dose: Not Given Metoprolol Tartrate (Lopressor) 25 mg PO Q12 [facility] Last Admin: 08/20/16 10:49 Dose: Not Given Multivitamins (Thera Tab) 1 tab PO DAILY [facility] Last Admin: 08/20/16 09:57 Dose: Not Given Pantoprazole Sodium (Protonix Ec Tab) 40 mg PO 0630 [facility] Last Admin: 08/20/16 05:56 Dose: Not Given Potassium Chloride (Klor-Con 10) 40 meq PO BRK [facility] Last Admin: 08/19/16 17:41 Dose: 40 meq Prednisone (Prednisone Tab) 30 mg PO DAILY [facility] Last Admin: 08/19/16 11:14 Dose: 30 mg - Labs Labs: 08/20/16 06:00 08/20/16 06:00 PT 11.4 Seconds (9.9-11.8) 08/17/16 17:59 INR 1.06 (0.93-1.08) 08/17/16 17:59 APTT 30.4 Seconds (23.7-30.8) 08/18/16 05:00 - Constitutional Appears: Well, Non-toxic, No Acute Distress - Extremities Exam Additional comments: Vasc: palpable pedal pulses b/l, TG warm to warm, CFT < 3 sec to all digits neuro: grossly intact derm: multiple scaling with patchy scabs and crusted lesions present on bilateral feet, dry eschar noted sub met 1 b/l, no underlying abscess formation , edema and erythema noted to bilateral legs, no open lesions, no ascending cellulitis, no drainage, no malodor ortho: mild pain to palpation of lesions bilateral feet - Neurological Exam Neurological Exam: Alert, Awake, Oriented x3 - Psychiatric Exam Psychiatric exam: Normal Affect, Normal Mood Assessment and Plan - Assessment and Plan (Free Text) Assessment: 61 y/o male with pmhx of alcohol abuse seen at bedside for bilateral leg swelling and fungal infection vs. psoriasis Plan: patient evaluated and chart reviewed discussed in detail with attending Dr. Arriaga labs and vitals reviewed Rx lotrimin, topicort to apply 2x daily fungal cx obtained, awaiting results podiatry will continue to follow while patient remains in house <Humberto Arriaga - Last Filed: 08/20/16 15:23> Objective - Vital Signs/Intake and Output Vital Signs (last 24 hours): Temp Pulse Resp BP Pulse Ox 98.4 F 58 L 20 89/59 L 98 08/20/16 08:00 08/20/16 12:10 08/19/16 16:00 08/20/16 12:01 08/20/16 12:10 Intake and Output: 08/20/16 08/20/16 06:59 18:59 Intake Total 0 124.0 Output Total 1100 Balance -1100 124.0 - Medications Medications: Current Medications Chlordiazepoxide (Librium) 25 mg PO Q8 ANH PRN Reason: Protocol Last Admin: 08/20/16 05:08 Dose: 25 mg Clotrimazole (Lotrimin 1%) 0 gm TOP BID ANH Last Admin: 08/20/16 10:47 Dose: 1 applic Desoximetasone (Topicort 0.25%) 0 ea TOP BID ANH Last Admin: 08/20/16 10:48 Dose: 1 applic Fluconazole (Diflucan) 100 mg PO DAILY ANH PRN Reason: Protocol Last Admin: 08/20/16 09:57 Dose: Not Given Heparin Sodium (Porcine) (Heparin) 5,000 units SC Q8 ANH PRN Reason: Protocol Last Admin: 08/20/16 14:48 Dose: 5,000 units Dexmedetomidine HCl (Precedex 4 Mcg/Ml (100 Ml)) 400 mcg in 100 mls @ 3.402 mls /hr IV .Q24H PRN; Protocol; 0.2 MCG/KG/HR PRN Reason: Agitation Last Titration: 08/20/16 14:20 Dose: 0.2 mcg/kg/hr, 3.402 mls/hr Folic Acid 1 mg/ Thiamine HCl 100 mg/ Multivitamins/Vitamin C 10 ml/ Potassium Chloride 20 meq/ Dextrose 1,021.2 mls @ 100 mls/hr IV .[id number] [facility] Last Admin: 08/20/16 09:52 Dose: 100 mls/hr Loratadine (Claritin) 10 mg PO DAILY [facility] Last Admin: 08/20/16 10:42 Dose: Not Given Lorazepam (Ativan) 2 mg IVP Q2 PRN; Protocol PRN Reason: Anxiety Last Admin: 08/20/16 01:52 Dose: 2 mg Lorazepam (Ativan) 3 mg IVP Q2H PRN; Protocol PRN Reason: Agitation Last Admin: 08/20/16 06:59 Dose: 3 mg Magnesium Oxide (Mag-Ox) 400 mg PO BID [facility] Last Admin: 08/20/16 10:42 Dose: Not Given Metoprolol Tartrate (Lopressor) 25 mg PO Q12 [facility] Last Admin: 08/20/16 10:49 Dose: Not Given Multivitamins (Thera Tab) 1 tab PO DAILY [facility] Last Admin: 08/20/16 09:57 Dose: Not Given Pantoprazole Sodium (Protonix Ec Tab) 40 mg PO 0630 [facility] Last Admin: 08/20/16 05:56 Dose: Not Given Prednisone (Prednisone Tab) 30 mg PO DAILY [facility] Last Admin: 08/19/16 11:14 Dose: 30 mg - Labs Labs: 08/20/16 06:00 08/20/16 06:00 PT 11.4 Seconds (9.9-11.8) 08/17/16 17:59 INR 1.06 (0.93-1.08) 08/17/16 17:59 APTT 30.4 Seconds (23.7-30.8) 08/18/16 05:00 Attending/Attestation - Attestation I have personally seen and examined this patient.: Yes I have fully participated in the care of the patient.: Yes I have reviewed all pertinent clinical information, including history, physical exam and plan: Yes
--- NOTE | 2016-08-20 11:19 | CARD ---
APPROVED REPORT EKG Measurement Heart [id number] <Conclusion> Normal sinus rhythm Prolonged QT
[2016-08-20 12:14] LABS: ARTERIAL BLOOD GAS HCO3 25.8 mmol/L (21-28); ARTERIAL BLOOD GAS O2 CAPACITY 16.5 mL/dl (16-24); ARTERIAL BLOOD GAS O2 CONTENT 16.3 ML/dl (15-23); ARTERIAL BLOOD GAS PH 7.33 (7.35-7.45); ARTERIAL BLOOD HGB O2 SAT 96.5 % (95.0-98.0); CARBOXYHEMOGLOBIN 1.8 % (0.5-1.5); HHB 1.2 % (0-5); METHEMOGLOBIN 0.6 % (0.0-3.0)
--- NOTE | 2016-08-20 15:56 | CP.PCM.PN ---
<Marito Watkins - Last Filed: 08/20/16 15:52> Subjective - Date & Time of Evaluation Date of Evaluation: 08/20/16 Time of Evaluation: 07:50 - Subjective Subjective: Dr. Watkins PGY 1 Hospitalist Note Patient seen and evaluated at bedside. He is sedated and being monitored in the ICU. Per nursing, patient became confused and agitated and was going through alcohol withdrawals. He became combative and required sedation. He is currently resting and in no distress. A through review of systems cannot be obtained as he is sedated. Objective - Vital Signs/Intake and Output Vital Signs (last 24 hours): Temp Pulse Resp BP Pulse Ox 98.4 F 58 L 20 89/59 L 98 08/20/16 08:00 08/20/16 12:10 08/19/16 16:00 08/20/16 12:01 08/20/16 12:10 Intake and Output: 08/20/16 08/20/16 06:59 18:59 Intake Total 0 124.0 Output Total 1100 Balance -1100 124.0 - Medications Medications: Current Medications Chlordiazepoxide (Librium) 25 mg PO Q8 [facility] PRN Reason: Protocol Last Admin: 08/20/16 05:08 Dose: 25 mg Clotrimazole (Lotrimin 1%) 0 gm TOP BID [facility] Last Admin: 08/20/16 10:47 Dose: 1 applic Desoximetasone (Topicort 0.25%) 0 ea TOP BID [facility]H Last Admin: 08/20/16 10:48 Dose: 1 applic Fluconazole (Diflucan) 100 mg PO DAILY [facility] PRN Reason: Protocol Last Admin: 08/20/16 09:57 Dose: Not Given Heparin Sodium (Porcine) (Heparin) 5,000 units SC Q8 [facility]H PRN Reason: Protocol Last Admin: 08/20/16 14:48 Dose: 5,000 units Dexmedetomidine HCl (Precedex 4 Mcg/Ml (100 Ml)) 400 mcg in 100 mls @ 3.402 mls /hr IV .Q24H PRN; Protocol; 0.2 MCG/KG/HR PRN Reason: Agitation Last Titration: 08/20/16 14:20 Dose: 0.2 mcg/kg/hr, 3.402 mls/hr Folic Acid 1 mg/ Thiamine HCl 100 mg/ Multivitamins/Vitamin C 10 ml/ Potassium Chloride 20 meq/ Dextrose 1,021.2 mls @ 100 mls/hr IV .[id number] [facility] Last Admin: 08/20/16 09:52 Dose: 100 mls/hr Loratadine (Claritin) 10 mg PO DAILY [facility] Last Admin: 08/20/16 10:42 Dose: Not Given Lorazepam (Ativan) 2 mg IVP Q2 PRN; Protocol PRN Reason: Anxiety Last Admin: 08/20/16 01:52 Dose: 2 mg Lorazepam (Ativan) 3 mg IVP Q2H PRN; Protocol PRN Reason: Agitation Last Admin: 08/20/16 06:59 Dose: 3 mg Magnesium Oxide (Mag-Ox) 400 mg PO BID [facility] Last Admin: 08/20/16 10:42 Dose: Not Given Metoprolol Tartrate (Lopressor) 25 mg PO Q12 [facility] Last Admin: 08/20/16 10:49 Dose: Not Given Multivitamins (Thera Tab) 1 tab PO DAILY [facility] Last Admin: 08/20/16 09:57 Dose: Not Given Pantoprazole Sodium (Protonix Ec Tab) 40 mg PO 0630 [facility] Last Admin: 08/20/16 05:56 Dose: Not Given Prednisone (Prednisone Tab) 30 mg PO DAILY [facility] Last Admin: 08/19/16 11:14 Dose: 30 mg - Labs Labs: 08/20/16 06:00 08/20/16 06:00 PT 11.4 Seconds (9.9-11.8) 08/17/16 17:59 INR 1.06 (0.93-1.08) 08/17/16 17:59 APTT 30.4 Seconds (23.7-30.8) 08/18/16 05:00 - Constitutional Appears: No Acute Distress, Other (sedated) - Head Exam Head Exam: ATRAUMATIC, NORMOCEPHALIC - Eye Exam Eye Exam: Normal appearance, PERRL Pupil Exam: PERRL - ENT Exam ENT Exam: Mucous Membranes Moist. absent: Normal Oropharynx (poor dentition) - Respiratory Exam Respiratory Exam: Clear to Ausculation Bilateral, NORMAL BREATHING PATTERN. absent: Rales, Rhonchi, Wheezes - Cardiovascular Exam Cardiovascular Exam: REGULAR RHYTHM, +S1, +S2. absent: Gallop, Rubs, Murmur - GI/Abdominal Exam GI & Abdominal Exam: Soft, Normal Bowel Sounds. absent: Tenderness - Extremities Exam Extremities Exam: absent: Normal Inspection (rash and erythema bilaterally with excoriations.), Pedal Edema, Tenderness - Neurological Exam Neurological Exam: absent: Altered (sedated) - Psychiatric Exam Additional comments: sedated - Skin Skin Exam: Rash, Warm Assessment and Plan - Assessment and Plan (Free Text) Assessment: Patient is 61 y/o male who presented intoxicated with diffuse rashes throughout his body; particularly on his abdomen, upper extremities, and lower extremities; rash on lower extremities is dry, hyperkeratotic, excoriations, with areas of erythema. Podiatry and ID consulted. Surgery consulted for skin biopsy. Episode of SVT on database developer which resolved. Developed delerium tremens and placed on IV sedation and taken to ICU for close monitoring. Plan: Diffuse Rash: * ID consulted, help appreciated * He remains afebrile w/o leukocytosis * Lower Extremity venous dopplers - no sonographic evidence for DVTs (please see full report) * Podiatry consulted due to bilateral eschar and hyperkeratotic lesions * Blood and urine cultures negative * Fungal culture negative * Consult surgery for biopsy * ESR of 52 * CRP of 3.39 * C3 low at 87 C4 19.3 * HIV negative * Continue loratidine to control pruritis (held while sedated) * continue Doxycycline 100 mg IV Q12h * continue Fluconazole 100 mg po qd (held while sedated) * given Ivermectin 14 mg po once * given prednisone which improved pruritis so continue 30mg daily (held while sedated) * topical Lotrimin and Topicort * f/u biopsy results Alcohol Withdrawal: * On precedex sedations in ICU- will be weaned from sedation * Alcohol tox screen: 429 * Initial AST/ALT: 71/25- continues to trend down * Continue banana bag * Continue Thiamine 100 mg IV * Continue Folic Acid 1 mg IV * continue Ativan 1 mg IV q2h prn * CIWAA protocol * Seizure precautions * [place] as needed due to instability * PT eval * educated on importance of abstinence SVT * responded spontaneously * electrolytes replenished as needed * Started on metoprolol 25mg PO BID * continue to monitor in ICU Depression: * Psychiatry consult, Dr. Goldstein, help appreciated. * Counseling as needed Prophylactic Measures: * DVT: Heparin 5000 units sc q8h, * SCDs contraindicated to b/l LE edema * Protonix 40 mg po qd Assessment and plan discussed with attending physician. <Patrick ESTEBAN,Brad - Last Filed: 08/20/16 17:34> Objective - Vital Signs/Intake and Output Vital Signs (last 24 hours): Temp Pulse Resp BP Pulse Ox 98.4 F 61 20 117/81 100 08/20/16 08:00 08/20/16 16:50 08/19/16 16:00 08/20/16 16:46 08/20/16 16:50 Intake and Output: 08/20/16 08/20/16 06:59 18:59 Intake Total 0 126.0 Output Total 1100 Balance -1100 126.0 - Medications Medications: Current Medications Chlordiazepoxide (Librium) 25 mg PO Q8 [facility] PRN Reason: Protocol Last Admin: 08/20/16 14:01 Dose: Not Given Clotrimazole (Lotrimin 1%) 0 gm TOP BID [facility] Last Admin: 08/20/16 10:47 Dose: 1 applic Desoximetasone (Topicort 0.25%) 0 ea TOP BID [facility] Last Admin: 08/20/16 10:48 Dose: 1 applic Diazepam (Valium) 5 mg IVP Q12H PRN; Protocol PRN Reason: Withdrawal/DT's Fluconazole (Diflucan) 100 mg PO DAILY [facility] PRN Reason: Protocol Last Admin: 08/20/16 09:57 Dose: Not Given Heparin Sodium (Porcine) (Heparin) 5,000 units SC Q8 [facility] PRN Reason: Protocol Last Admin: 08/20/16 14:48 Dose: 5,000 units Dexmedetomidine HCl (Precedex 4 Mcg/Ml (100 Ml)) 400 mcg in 100 mls @ 3.402 mls /hr IV .Q24H PRN; Protocol; 0.2 MCG/KG/HR PRN Reason: Agitation Last Titration: 08/20/16 15:40 Dose: 0.1 mcg/kg/hr, 1.701 mls/hr Folic Acid 1 mg/ Thiamine HCl 100 mg/ Multivitamins/Vitamin C 10 ml/ Potassium Chloride 20 meq/ Dextrose 1,021.2 mls @ 100 mls/hr IV .[id number] [facility] Last Admin: 08/20/16 09:52 Dose: 100 mls/hr Loratadine (Claritin) 10 mg PO DAILY [facility] Last Admin: 08/20/16 10:42 Dose: Not Given Lorazepam (Ativan) 2 mg IVP Q2 PRN; Protocol PRN Reason: Anxiety Last Admin: 08/20/16 01:52 Dose: 2 mg Lorazepam (Ativan) 3 mg IVP Q2H PRN; Protocol PRN Reason: Agitation Last Admin: 08/20/16 06:59 Dose: 3 mg Magnesium Oxide (Mag-Ox) 400 mg PO BID [facility] Last Admin: 08/20/16 10:42 Dose: Not Given Metoprolol Tartrate (Lopressor) 25 mg PO Q12 [facility] Last Admin: 08/20/16 10:49 Dose: Not Given Multivitamins (Thera Tab) 1 tab PO DAILY [facility] Last Admin: 08/20/16 09:57 Dose: Not Given Pantoprazole Sodium (Protonix Ec Tab) 40 mg PO 0630 [facility] Last Admin: 08/20/16 05:56 Dose: Not Given Prednisone (Prednisone Tab) 30 mg PO DAILY [facility] Last Admin: 08/19/16 11:14 Dose: 30 mg - Labs Labs: 08/20/16 06:00 08/20/16 06:00 PT 11.4 Seconds (9.9-11.8) 08/17/16 17:59 INR 1.06 (0.93-1.08) 08/17/16 17:59 APTT 30.4 Seconds (23.7-30.8) 08/18/16 05:00 Attending/Attestation - Attestation I have personally seen and examined this patient.: Yes I have fully participated in the care of the patient.: Yes I have reviewed all pertinent clinical information, including history, physical exam and plan: Yes Notes (Text): 08/20/16 17:30 Patient was seen and examined with medical coding specialist .Agreed with resident assessment and plan. 61 year old male admitted for ETOH and diffuse body rash and LE cellulitis. Patient went into DT and was transferred to ICU, on Precedex drip, had skin bopsy done , on prednisone ,antibiotic are discontinued by ID. patient had transient period of SVT yesterdat was shaking at that time, no further SVT.ECho showed EF 45-50% 08/20/16 17:33
--- NOTE | 2016-08-20 16:38 | CARD ---
APPROVED REPORT EXAM: Two-dimensional and M-mode echocardiogram with Doppler and color Doppler. INDICATION SVT 2D DIMENSIONS Left Atrium (2D)3.1 (1.6-4.0cm)IVSd1.2 (0.7-1.1cm) LVDd4.3 (3.9-5.9cm)PWd1.2 (0.7-1.1cm) LVDs3.3 (2.5-4.0cm)FS (%) 23.1 % LVEF (%)46.7 (>50%) M-Mode DIMENSIONS Aortic Root3.50 (2.2-3.7cm)Aortic Cusp Exc.1.90 (1.5-2.0cm) Aortic Valve AO Peak GR.5mmHg Mitral Valve MV E Fsvarmzn18.9cm/sMV A Tkqrjmkk19.1cm/sE/A ratio0.7 TDI Lateral E' Peak V7.41cm/sMedial E' Peak V6.24cm/sE/Lateral E'6.3 E/Medial E'7.5 Pulmonary Valve PV Peak Nkskwofh07.0cm/sPV Peak Grad.1mmHg Tricuspid Valve TR Peak [id number]/sRAP [id number] Peak Gr.24mmHg [id number] LEFT VENTRICLE The left ventricle is normal size. There is mild concentric left ventricular hypertrophy. The systolic function is mildly impaired.EF-45-50% There is mild hypokinesis in the apical anterior wall. Transmitral Doppler flow pattern is Grade III-reversible restrictive diastolic dysfunction. No left ventricle thrombus noted on this study. There is no ventricular septal defect visualized. There is no left ventricular aneurysm. There is no mass noted in the left ventricle. RIGHT VENTRICLE The right ventricle is normal size. There is normal right ventricular wall thickness. The right ventricular systolic function is normal. ATRIA The left atrium size is normal. The right atrium size is normal. The interatrial septum is intact with no evidence for an atrial septal defect. AORTIC VALVE The aortic valve is thickened but opens well. No aortic regurgitation is present. There is no aortic valvular stenosis. There is no aortic valvular vegetation. MITRAL VALVE The mitral valve is thickened but opens well. Mitral regurgitation is trace. There is no mitral valve stenosis. There is no evidence of mitral valve prolapse. TRICUSPID VALVE The tricuspid valve leaflets are thickened , but open well. There is mild tricuspid regurgitation.RVSP-34 mmof Hg. There is no tricuspid valve stenosis. There is no tricuspid valve prolapse or vegetation. PULMONIC VALVE The pulmonary valve is normal in structure. GREAT VESSELS The aortic root is normal in size. The ascending aorta is normal in size. The pulmonary artery is normal. The IVC is normal in size and collapses >50% with inspiration. PERICARDIAL EFFUSION There is no pleural effusion. There is no pericardial effusion. <Conclusion> The left ventricle is normal size. There is mild concentric left ventricular hypertrophy. The systolic function is mildly impaired.EF-45-50% Mitral regurgitation is trace. There is mild tricuspid regurgitation.RVSP-34 mmof Hg. The IVC is normal in size and collapses >50% with inspiration. There is no pericardial effusion.
[2016-08-20] MEDS ORDERED: diaZEpam 10 mg/2 ml Inj IVP PRN (16:46)
[2016-08-20] MEDS: Sodium Chloride 0.9% 1,000 ML IV SCH (21:26)
--- NOTE | 2016-08-21 00:48 | CP.PCM.PN ---
Subjective - Date & Time of Evaluation Date of Evaluation: 08/21/16 Time of Evaluation: 06:55 - Subjective Subjective: General Surgery progress note for Dr. Jack Pt s/e at bedside this AM. NAEO. Patient states that rash itches but denies any pain, fevers, chills, SOB, chest pain, or any other symptoms Objective - Vital Signs/Intake and Output Vital Signs (last 24 hours): Temp Pulse Resp BP Pulse Ox 98.2 F 80 16 140/84 99 08/20/16 22:00 08/20/16 23:50 08/20/16 20:00 08/20/16 23:31 08/20/16 23:50 Intake and Output: 08/20/16 08/21/16 18:59 06:59 Intake Total 126.0 1026 Output Total 0 Balance 126.0 1026 - Medications Medications: Current Medications Chlordiazepoxide (Librium) 25 mg PO Q8 [facility]H PRN Reason: Protocol Last Admin: 08/20/16 14:01 Dose: Not Given Clotrimazole (Lotrimin 1%) 0 gm TOP BID ANH Last Admin: 08/20/16 18:00 Dose: 1 applic Desoximetasone (Topicort 0.25%) 0 ea TOP BID [facility] Last Admin: 08/20/16 18:37 Dose: 1 applic Diazepam (Valium) 5 mg IVP Q12H PRN; Protocol PRN Reason: Withdrawal/DT's Last Admin: 08/20/16 17:00 Dose: 5 mg Fluconazole (Diflucan) 100 mg PO DAILY [facility] PRN Reason: Protocol Last Admin: 08/20/16 09:57 Dose: Not Given Heparin Sodium (Porcine) (Heparin) 5,000 units SC Q8 [facility] PRN Reason: Protocol Last Admin: 08/20/16 22:33 Dose: 5,000 units Sodium Chloride (Sodium Chloride 0.9%) 1,000 mls @ 100 mls/hr IV .Q10H [facility] Last Admin: 08/20/16 21:26 Dose: 100 mls/hr Loratadine (Claritin) 10 mg PO DAILY [facility] Last Admin: 08/20/16 10:42 Dose: Not Given Lorazepam (Ativan) 2 mg IVP Q2 PRN; Protocol PRN Reason: Anxiety Last Admin: 08/20/16 01:52 Dose: 2 mg Lorazepam (Ativan) 3 mg IVP Q2H PRN; Protocol PRN Reason: Agitation Last Admin: 08/20/16 06:59 Dose: 3 mg Magnesium Oxide (Mag-Ox) 400 mg PO BID [facility] Last Admin: 08/20/16 18:20 Dose: Not Given Metoprolol Tartrate (Lopressor) 25 mg PO Q12 [facility] Last Admin: 08/20/16 22:33 Dose: 25 mg Multivitamins (Thera Tab) 1 tab PO DAILY [facility] Last Admin: 08/20/16 09:57 Dose: Not Given Pantoprazole Sodium (Protonix Ec Tab) 40 mg PO 0630 [facility] Last Admin: 08/20/16 05:56 Dose: Not Given Prednisone (Prednisone Tab) 30 mg PO DAILY [facility] Last Admin: 08/20/16 18:22 Dose: Not Given - Labs Labs: 08/20/16 06:00 08/20/16 06:00 PT 11.4 Seconds (9.9-11.8) 08/17/16 17:59 INR 1.06 (0.93-1.08) 08/17/16 17:59 APTT 30.4 Seconds (23.7-30.8) 08/18/16 05:00 - Constitutional Appears: Well, Non-toxic, No Acute Distress - Head Exam Head Exam: ATRAUMATIC, NORMOCEPHALIC - Eye Exam Eye Exam: Normal appearance. absent: Conjunctival injection, Scleral icterus - ENT Exam ENT Exam: Mucous Membranes Moist, Normal Oropharynx - Respiratory Exam Respiratory Exam: NORMAL BREATHING PATTERN. absent: Accessory Muscle Use, Respiratory Distress - Cardiovascular Exam Cardiovascular Exam: Tachycardia, REGULAR RHYTHM - GI/Abdominal Exam GI & Abdominal Exam: Soft. absent: Distended, Tenderness - Extremities Exam Extremities Exam: Tenderness. absent: Calf Tenderness, Pedal Edema Additional comments: See skin exam - Neurological Exam Neurological Exam: Alert, Awake, Oriented x3 - Psychiatric Exam Psychiatric exam: Normal Affect, Normal Mood - Skin Skin Exam: Warm Additional comments: Diffuse Multiple erythematous ring shaped lesions on all the extremities and trunk, becoming confluent on the lower legs Assessment and Plan - Assessment and Plan (Free Text) Assessment: This is a 61M with severe ETOH withdrawal and a rash on his legs Plan Punch Biopsy Tuesday Continue medical management per primary team Pre-op on Tuesday D/W Dr. Guero Higgins, PGY1
[2016-08-21] MEDS: Pantoprazole 40 mg EC Tab PO SCH (05:46)
[2016-08-21 05:54] LABS: ADD MANUAL DIFF? NO
[2016-08-21 05:57] LABS: BASO # 0.05 K/mm3 (0.0-2.0); BASO % 0.8 % (0.0-3.0); EOS # 0.4 (0.0-0.7); EOS % 6.4 % (1.5-5.0); GRAN # 4.31 (1.4-6.5); GRAN % 65.6 % (50.0-68.0); HEMATOCRIT 40.4 % (42.0-52.0); LYMPH # 1.3 (1.2-3.4); LYMPH % 19.9 % (22.0-35.0); MEAN CORPUSCULAR HEMOGLOBIN 31.4 pg (25.0-35.0); MEAN CORPUSCULAR HGB CONC 33.4 g/dl (31.0-37.0); MONO # 0.5 (0.1-0.6); MONO % 7.3 % (1.0-6.0); PLATELET COUNT 204 10^3/uL (120.0-450.0); RED CELL DISTRIBUTION WIDTH 13.1 % (11.5-14.5); WHITE BLOOD COUNT 6.6 10^3/ul (4.5-11.0)
[2016-08-21 06:09] LABS: ALB/GLOB RATIO 0.7 (1.1-1.8); ALKALINE PHOSPHATASE 103 U/L (38-133); ALT/SGPT 44 U/L (7-56); AST/SGOT 93 U/L (15-59); BILIRUBIN,TOTAL 1.2 mg/dL (0.2-1.3); BLOOD UREA NITROGEN 14 mg/dL (7-21); CALCIUM 8.9 mg/dL (8.4-10.5); CARBON DIOXIDE 26 mmol/L (21-33); CHLORIDE 104 mmol/L (98-107); GFR AFRICAN-AMERICAN > 60; GLUCOSE,RANDOM 89 mg/dL (70-110); MAGNESIUM 1.8 mg/dL (1.7-2.2); POTASSIUM 4.1 mmol/L (3.6-5.0); SODIUM 138 mmol/L (132-148)
[2016-08-21] MEDS: Sodium Chloride 0.9% 1,000 ML IV SCH (06:46)
--- NOTE | 2016-08-21 09:08 | CP.PCM.PN ---
<Lashonda Dueñas - Last Filed: 08/21/16 09:05> Subjective - Date & Time of Evaluation Date of Evaluation: 08/21/16 Time of Evaluation: 08:10 - Subjective Subjective: 61 y/o male seen at bedside in CCU this morning for f/u of bilateral leg swelling/rash. Pt seen resting comfortably in bed at time of visit. Says the itchiness to his legs feels better today. Denies f/n/v/c/sob/cp. Pt says he is here due to his alcohol withdrawal. Reports tolerating diet well. Objective - Vital Signs/Intake and Output Vital Signs (last 24 hours): Temp Pulse Resp BP Pulse Ox 97.5 F L 125 H 13 158/89 H 97 08/21/16 08:00 08/21/16 08:54 08/21/16 08:54 08/21/16 07:21 08/21/16 08:40 Intake and Output: 08/21/16 08/21/16 06:59 18:59 Intake Total 2376 Output Total 1100 Balance 1276 - Medications Medications: Current Medications Chlordiazepoxide (Librium) 25 mg PO Q8 [facility] PRN Reason: Protocol Last Admin: 08/20/16 14:01 Dose: Not Given Clotrimazole (Lotrimin 1%) 0 gm TOP BID [facility] Last Admin: 08/20/16 18:00 Dose: 1 applic Desoximetasone (Topicort 0.25%) 0 ea TOP BID [facility] Last Admin: 08/20/16 18:37 Dose: 1 applic Diazepam (Valium) 5 mg IVP Q12H PRN; Protocol PRN Reason: Withdrawal/DT's Last Admin: 08/20/16 17:00 Dose: 5 mg Fluconazole (Diflucan) 100 mg PO DAILY [facility] PRN Reason: Protocol Last Admin: 08/20/16 09:57 Dose: Not Given Heparin Sodium (Porcine) (Heparin) 5,000 units SC Q8 [facility] PRN Reason: Protocol Last Admin: 08/21/16 05:44 Dose: 5,000 units Sodium Chloride (Sodium Chloride 0.9%) 1,000 mls @ 100 mls/hr IV .Q10H [facility] Last Admin: 08/21/16 06:46 Dose: 100 mls/hr Loratadine (Claritin) 10 mg PO DAILY [facility] Last Admin: 04/28/17 10:42 Dose: Not Given Lorazepam (Ativan) 2 mg IVP Q2 PRN; Protocol PRN Reason: Anxiety Last Admin: 08/20/16 01:52 Dose: 2 mg Lorazepam (Ativan) 3 mg IVP Q2H PRN; Protocol PRN Reason: Agitation Last Admin: 08/20/16 06:59 Dose: 3 mg Magnesium Oxide (Mag-Ox) 400 mg PO BID [facility] Last Admin: 08/20/16 18:20 Dose: Not Given Metoprolol Tartrate (Lopressor) 25 mg PO Q12 [facility] Last Admin: 08/20/16 22:33 Dose: 25 mg Multivitamins (Thera Tab) 1 tab PO DAILY [facility] Last Admin: 08/20/16 09:57 Dose: Not Given Pantoprazole Sodium (Protonix Ec Tab) 40 mg PO 0630 [facility] Last Admin: 08/21/16 05:46 Dose: 40 mg Prednisone (Prednisone Tab) 30 mg PO DAILY [facility] Last Admin: 08/20/16 18:22 Dose: Not Given - Labs Labs: 08/21/16 05:30 08/21/16 05:30 PT 11.4 Seconds (9.9-11.8) 08/17/16 17:59 INR 1.06 (0.93-1.08) 08/17/16 17:59 APTT 30.4 Seconds (23.7-30.8) 08/18/16 05:00 - Constitutional Appears: Non-toxic, No Acute Distress - Extremities Exam Extremities Exam: absent: Calf Tenderness Additional comments: Vasc: palpable pedal pulses b/l, TG warm to warm, CFT < 3 sec to all digits neuro: grossly intact derm: multiple scaling with patchy scabs and crusted lesions present on bilateral feet, dry eschar noted sub met 1 b/l, no underlying abscess formation , edema and erythema noted to bilateral legs, no open lesions, no ascending cellulitis, no drainage, no malodor ortho: mild pain to palpation of lesions bilateral feet - Neurological Exam Neurological Exam: Alert, Awake, Oriented x3 - Psychiatric Exam Psychiatric exam: Normal Affect, Normal Mood Assessment and Plan - Assessment and Plan (Free Text) Assessment: 61 y/o male with pmhx of alcohol abuse seen at bedside for bilateral leg swelling and fungal infection vs. psoriasis Plan: Pt S&E at bedside Plan discussed w/ attending Dr. Arriaga Chart, labs, vitals reviewed: afebrile, no leukocytosis, remains tachycardic at 125 Applied lotrime and topicort to legs bilateral To be applied bid Fungal cx (prelim): no fungal elements seen podiatry will continue to follow while patient remains in house <Humberto Arriaga - Last Filed: 08/24/16 08:15> Objective - Vital Signs/Intake and Output Vital Signs (last 24 hours): Temp Pulse Resp BP Pulse Ox 97.7 F 78 20 120/72 98 08/23/16 16:00 08/23/16 16:00 08/23/16 16:00 08/23/16 16:00 08/23/16 16:00 Intake and Output: 08/24/16 08/24/16 06:59 18:59 Intake Total 720 Balance 720 - Medications Medications: Current Medications Chlordiazepoxide (Librium) 10 mg PO BID [facility] PRN Reason: Protocol Last Admin: 08/23/16 18:52 Dose: 10 mg Clotrimazole (Lotrimin 1%) 0 gm TOP BID [facility] Last Admin: 08/23/16 18:52 Dose: 1 applic Desoximetasone (Topicort 0.25%) 0 ea TOP BID [facility] Last Admin: 08/23/16 18:52 Dose: 1 applic Folic Acid (Folic Acid) 1 mg PO DAILY [facility] Last Admin: 08/23/16 09:42 Dose: 1 mg Heparin Sodium (Porcine) (Heparin) 5,000 units SC Q8 [facility] PRN Reason: Protocol Last Admin: 08/24/16 06:08 Dose: 5,000 units Loratadine (Claritin) 10 mg PO DAILY [facility] Last Admin: 08/23/16 09:42 Dose: 10 mg Lorazepam (Ativan) 2 mg IVP Q2 PRN; Protocol PRN Reason: Anxiety Last Admin: 08/20/16 01:52 Dose: 2 mg Magnesium Oxide (Mag-Ox) 400 mg PO BID [facility] Last Admin: 08/23/16 18:52 Dose: 400 mg Metoprolol Tartrate (Lopressor) 25 mg PO Q12 [facility] Last Admin: 08/23/16 21:16 Dose: 25 mg Multivitamins (Thera Tab) 1 tab PO DAILY [facility] Last Admin: 08/23/16 09:42 Dose: 1 tab Pantoprazole Sodium (Protonix Ec Tab) 40 mg PO 0630 [facility] Last Admin: 08/24/16 06:09 Dose: 40 mg Prednisone (Prednisone Tab) 15 mg PO DAILY [facility] Thiamine HCl (Vitamin B1 Tab) 100 mg PO DAILY [facility] Last Admin: 08/23/16 09:42 Dose: 100 mg - Labs Labs: 08/24/16 06:30 08/24/16 06:30 PT 11.4 Seconds (9.9-11.8) 08/17/16 17:59 INR 1.06 (0.93-1.08) 08/17/16 17:59 APTT 30.4 Seconds (23.7-30.8) 08/18/16 05:00 Attending/Attestation - Attestation I have personally seen and examined this patient.: Yes I have fully participated in the care of the patient.: Yes I have reviewed all pertinent clinical information, including history, physical exam and plan: Yes
[2016-08-21] MEDS: Multivitamin Therapeutic Tab PO SCH (09:10)
[2016-08-21] MEDS: Magnesium Oxide 400 mg Tab UD PO SCH ×2 (09:10→17:11)
[2016-08-21] MEDS: Desoximetasone 0.25% Cream(15 gm) TOP SCH ×2 (09:14→17:12)
[2016-08-21] MEDS: Clotrimazole 1% Cream(30 gm) TOP SCH ×2 (09:14→17:12)
--- NOTE | 2016-08-21 09:38 | PN ---
DATE: 08/21/2016 SUBJECTIVE: The patient is resting in bed, awake and alert, oriented x 3, eating breakfast with no o bvious complaints. The patient had no shortness of breath, cough, wheezing, chest congestion. No fe felicia or chills. No nausea or vomiting. No abdominal pain, no diarrhea. The patient is comfortable o n 2 liters nasal cannula, does continue to have a mild tachycardia. PHYSICAL EXAMINATION: VITAL SIGNS: He is afebrile. His pulse is 115, his respirations are 16 and his BP is 157/79. SKIN: Warm and dry. HEAD: Atraumatic, normocephalic. EYES: Reactive to light. EARS, NOSE AND THROAT: Seem to be within normal limits. NECK: Supple. No JVD, no thyroid enlargement, no lymph nodes. HEART: Has regular rate and rhythm, normal S1, S2. LUNGS: Reveal good breath sounds bilaterally. ABDOMEN: Soft, nontender, normal bowel sounds. GENITALIA AND RECTAL: Deferred. MUSCULOSKELETAL: No joint deformities. EXTREMITIES: Reveal trace lower extremity edema. NEUROLOGIC: He seems to be grossly intact at this time. The patient does have areas of rash over hi s body. LABORATORY DATA: As far as chest x-ray is within normal limits. A white count of 6.6, hemoglobin of 13.5, hematocrit 40.4 with platelets of 204,000. Sodium is 138, potassium 4.1, chloride 104, CO2 of 26, BUN of 14, creatinine of 0.7, and glucose of 89. IMPRESSION: The patient has a history of delirium tremors, ETOH withdrawal, liver cirrhosis, and pso riasis. PLAN: The patient is getting Ativan on a p.r.n. basis, and is getting prednisone as well as IV fluid s and p.r.n. Valium. We will continue with O2 via nasal cannula and we will continue to treat aggres sively along with the other consultants and the primary care doctor. Delon Saunders MD cc: [id number] TT: 08/21/2016 09:37:43 Confirmation # [id number] Dictation # [id number] [email or web address]
--- NOTE | 2016-08-21 10:45 | CP.PCM.PN ---
<Buffy,Vane - Last Filed: 08/21/16 10:40> Subjective - Date & Time of Evaluation Date of Evaluation: 08/21/16 Time of Evaluation: 10:40 - Subjective Subjective: HOSPITALIST PROGRESS NOTE Pt seen and examined at bedside. No acute events overnight. patient states pruritus has improved. Denies having any CP, SOB and pain. Objective - Vital Signs/Intake and Output Vital Signs (last 24 hours): Temp Pulse Resp BP Pulse Ox 97.5 F L 87 14 159/89 H 99 08/21/16 08:00 08/21/16 10:10 08/21/16 10:10 08/21/16 09:10 08/21/16 10:10 Intake and Output: 08/21/16 08/21/16 06:59 18:59 Intake Total 2376 Output Total 1100 Balance 1276 - Medications Medications: Current Medications Chlordiazepoxide (Librium) 25 mg PO Q8 [facility] PRN Reason: Protocol Last Admin: 08/20/16 14:01 Dose: Not Given Clotrimazole (Lotrimin 1%) 0 gm TOP BID [facility] Last Admin: 08/21/16 09:14 Dose: 1 applic Desoximetasone (Topicort 0.25%) 0 ea TOP BID [facility] Last Admin: 08/21/16 09:14 Dose: 1 applic Diazepam (Valium) 5 mg IVP Q12H PRN; Protocol PRN Reason: Withdrawal/DT's Last Admin: 08/20/16 17:00 Dose: 5 mg Fluconazole (Diflucan) 100 mg PO DAILY [facility] PRN Reason: Protocol Last Admin: 08/21/16 09:10 Dose: 100 mg Heparin Sodium (Porcine) (Heparin) 5,000 units SC Q8 [facility] PRN Reason: Protocol Last Admin: 08/21/16 05:44 Dose: 5,000 units Sodium Chloride (Sodium Chloride 0.9%) 1,000 mls @ 100 mls/hr IV .Q10H [facility] Last Admin: 08/21/16 06:46 Dose: 100 mls/hr Loratadine (Claritin) 10 mg PO DAILY [facility] Last Admin: 08/21/16 09:10 Dose: 10 mg Lorazepam (Ativan) 2 mg IVP Q2 PRN; Protocol PRN Reason: Anxiety Last Admin: 08/20/16 01:52 Dose: 2 mg Lorazepam (Ativan) 3 mg IVP Q2H PRN; Protocol PRN Reason: Agitation Last Admin: 08/20/16 06:59 Dose: 3 mg Magnesium Oxide (Mag-Ox) 400 mg PO BID [facility] Last Admin: 08/21/16 09:10 Dose: 400 mg Metoprolol Tartrate (Lopressor) 25 mg PO Q12 [facility] Last Admin: 08/21/16 09:10 Dose: 25 mg Multivitamins (Thera Tab) 1 tab PO DAILY [facility] Last Admin: 08/21/16 09:10 Dose: 1 tab Pantoprazole Sodium (Protonix Ec Tab) 40 mg PO 0630 [facility] Last Admin: 08/21/16 05:46 Dose: 40 mg Prednisone (Prednisone Tab) 30 mg PO DAILY [facility] Last Admin: 08/21/16 09:13 Dose: 30 mg - Labs Labs: 08/21/16 05:30 08/21/16 05:30 PT 11.4 Seconds (9.9-11.8) 08/17/16 17:59 INR 1.06 (0.93-1.08) 08/17/16 17:59 APTT 30.4 Seconds (23.7-30.8) 08/18/16 05:00 - Constitutional Appears: Non-toxic, No Acute Distress - ENT Exam ENT Exam: Mucous Membranes Moist - Respiratory Exam Respiratory Exam: Clear to Ausculation Bilateral. absent: Rales, Rhonchi, Wheezes - Cardiovascular Exam Cardiovascular Exam: REGULAR RHYTHM, +S1, +S2. absent: Gallop, Rubs, Murmur - GI/Abdominal Exam GI & Abdominal Exam: Soft. absent: Distended, Firm, Guarding, Rigid, Tenderness - Neurological Exam Neurological Exam: Alert, Awake, Oriented x3 - Psychiatric Exam Psychiatric exam: Normal Affect, Normal Mood - Skin Additional comments: B/L LE scaly rash. Assessment and Plan - Assessment and Plan (Free Text) Assessment: Patient is 61 y/o male who presented intoxicated with diffuse rashes throughout his body; particularly on his abdomen, upper extremities, and lower extremities; rash on lower extremities is dry, hyperkeratotic, excoriations, with areas of erythema. Podiatry and ID consulted. Surgery consulted for skin biopsy. 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 Developed delerium tremens and placed on IV sedation and taken to ICU for close monitoring. Plan: Diffuse Rash: * ID consulted, help appreciated * He remains afebrile w/o leukocytosis * Lower Extremity venous dopplers - no sonographic evidence for DVTs (please see full report) * Podiatry consulted due to bilateral eschar and hyperkeratotic lesions * Blood and urine cultures negative * Fungal culture negative * Consult surgery for biopsy. Punch biopsy tentatively scheduled for Tuesday. Will f/u biopsy results * ESR of 52 * CRP of 3.39 * C3 low at 87 C4 19.3 * HIV negative * Continue loratidine to control pruritis (held while sedated) * continue Doxycycline 100 mg IV Q12h * continue Fluconazole 100 mg po qd (held while sedated) * given Ivermectin 14 mg po once * given prednisone which improved pruritis so continue 30mg daily (held while sedated) * topical Lotrimin and Topicort Alcohol Withdrawal: * Patient is off precedex drip. Currently on Ativan 2 mg IV q2 prn and 3 mg IV Q2 prn and Lopressor 25 mg po q 12 [facility] * Alcohol tox screen: 429 * Initial AST/ALT: 71/25- continues to trend down * Continue banana bag * Continue Thiamine 100 mg IV * Continue Folic Acid 1 mg IV * continue Ativan 1 mg IV q2h prn * CIWAA protocol * Seizure precautions * Kittrell as needed due to instability * PT eval * educated on importance of abstinence SVT * responded spontaneously * electrolytes replenished as needed * Started on metoprolol 25mg PO BID * continue to monitor in ICU Depression: * Psychiatry consult, Dr. Goldstein, help appreciated. * Counseling as needed Prophylactic Measures: * DVT: Heparin 5000 units sc q8h, * SCDs contraindicated to b/l LE edema * Protonix 40 mg po qd Assessment and plan discussed with attending physician. <Latia Quiros - Last Filed: 08/21/16 11:07> Objective - Vital Signs/Intake and Output Vital Signs (last 24 hours): Temp Pulse Resp BP Pulse Ox 97.5 F L 87 14 159/89 H 99 08/21/16 08:00 08/21/16 10:10 08/21/16 10:10 08/21/16 09:10 08/21/16 10:10 Intake and Output: 08/21/16 08/21/16 06:59 18:59 Intake Total 2376 Output Total 1100 Balance 1276 - Medications Medications: Current Medications Chlordiazepoxide (Librium) 25 mg PO Q8 [facility] PRN Reason: Protocol Last Admin: 08/20/16 14:01 Dose: Not Given Clotrimazole (Lotrimin 1%) 0 gm TOP BID [facility] Last Admin: 08/21/16 09:14 Dose: 1 applic Desoximetasone (Topicort 0.25%) 0 ea TOP BID [facility] Last Admin: 08/21/16 09:14 Dose: 1 applic Diazepam (Valium) 5 mg IVP Q12H PRN; Protocol PRN Reason: Withdrawal/DT's Last Admin: 08/20/16 17:00 Dose: 5 mg Fluconazole (Diflucan) 100 mg PO DAILY [facility] PRN Reason: Protocol Last Admin: 08/21/16 09:10 Dose: 100 mg Heparin Sodium (Porcine) (Heparin) 5,000 units SC Q8 [facility] PRN Reason: Protocol Last Admin: 08/21/16 05:44 Dose: 5,000 units Sodium Chloride (Sodium Chloride 0.9%) 1,000 mls @ 100 mls/hr IV .Q10H [facility] Last Admin: 08/21/16 06:46 Dose: 100 mls/hr Loratadine (Claritin) 10 mg PO DAILY [facility] Last Admin: 08/21/16 09:10 Dose: 10 mg Lorazepam (Ativan) 2 mg IVP Q2 PRN; Protocol PRN Reason: Anxiety Last Admin: 08/20/16 01:52 Dose: 2 mg Lorazepam (Ativan) 3 mg IVP Q2H PRN; Protocol PRN Reason: Agitation Last Admin: 08/20/16 06:59 Dose: 3 mg Magnesium Oxide (Mag-Ox) 400 mg PO BID [facility] Last Admin: 08/21/16 09:10 Dose: 400 mg Metoprolol Tartrate (Lopressor) 25 mg PO Q12 [facility] Last Admin: 08/21/16 09:10 Dose: 25 mg Multivitamins (Thera Tab) 1 tab PO DAILY [facility] Last Admin: 08/21/16 09:10 Dose: 1 tab Pantoprazole Sodium (Protonix Ec Tab) 40 mg PO 0630 [facility] Last Admin: 08/21/16 05:46 Dose: 40 mg Prednisone (Prednisone Tab) 30 mg PO DAILY [facility] Last Admin: 08/21/16 09:13 Dose: 30 mg - Labs Labs: 08/21/16 05:30 08/21/16 05:30 PT 11.4 Seconds (9.9-11.8) 08/17/16 17:59 INR 1.06 (0.93-1.08) 08/17/16 17:59 APTT 30.4 Seconds (23.7-30.8) 08/18/16 05:00 Attending/Attestation - Attestation I have personally seen and examined this patient.: Yes I have fully participated in the care of the patient.: Yes I have reviewed all pertinent clinical information, including history, physical exam and plan: Yes Notes (Text): 08/21/16 11:04 61 year old male with past medical history of ETOH abuse who presented with LE cellulitis and diffuse body rash. Hospital course was complicated with acute alcohol withdrawal for which patient was transferred to ICU on precedex drip. Patient is now off precedex. He is on ativan prn. Continue with multivitamin, folic acid and thiamine. He was counselled on alcohol abstinence. He has recent transient episode of SVT few days ago. This was likely secondary to ETOH. Echo was reviewed as above. He is on metoprolol. He is being followed by ID and podiatry for LE cellulitis and diffuse body rash. He is on prednisone and now off antibiotics. Plan is for skin biopsy on Tuesday. Latia Quiros MD Hospitalist.
[2016-08-21 11:53] LABS: URINE BILIRUBIN NEGATIVE (NEGATIVE); URINE BLOOD NEGATIVE (NEGATIVE); URINE GLUCOSE (UA) NEGATIVE (NEGATIVE); URINE KETONE TRACE mg/dL (NEGATIVE); URINE LEUKOCYTE ESTERASE NEGATIVE Leu/uL (NEGATIVE); URINE PROTEIN NEGATIVE mg/dL (<30 mg/dL); URINE UROBILINOGEN 0.2 E.U./dL (<1 E.U./dL)
[2016-08-21 11:56] LABS: URINE APPEARANCE CLEAR (CLEAR); URINE COLOR YELLOW (YELLOW)
--- NOTE | 2016-08-21 18:14 | PN ---
DATE: 08/21/2016 The patient is in bed in no acute distress, was seen earlier this morning in 128, bed 5. PHYSICAL EXAMINATION: VITAL SIGNS: Temperature is 98, blood pressure is 130/90, respiratory rate of 16. HEENT: Unremarkable. NECK: Supple. LUNGS: Have decreased breath sounds. HEART: Normal S1, S2. ABDOMEN: Soft. LABORATORY DATA: Reveals a white count of 6.6, hemoglobin of 13. BUN of 14, creatinine of 0.7. Pro calcitonin is 0.05 from yesterday Microbiology reveals the patient has no growth in the blood culture s x 24 hours and the wound cultures from the leg no fungal elements are seen and urine cultures no gr owth. Review of orders reveals the patient to be on lorazepam and heparin, vitamins, thiamin, and Diflucan. ASSESSMENT AND PLAN: This is a 61-year-old male alcoholic who was treated with scabies as a rash, st atus post biopsy. We will discontinue Diflucan, awaiting for pathology report in this patient with a lcohol withdrawal symptoms. No evidence of cellulitis, rash is present but not significant for cellu litis, currently off of antibiotics. We will discontinue the Diflucan and follow the patient, waitin g for pathology. The patient's RPR is nonreactive. HIV is nonreactive. GRISELDA is negative. Alcohol l evel of 429. Unremarkable urinalysis and negative procalcitonin. Normal white count and normal plat elets. Chest x-ray from yesterday, no active disease. The patient is at risk for developing nosocom ial infections. Rosendo Pack MD cc: [phone] TT: 08/21/2016 18:14:37 Confirmation # [id number] Dictation # [id number]
[2016-08-22 05:52] LABS: ADD MANUAL DIFF? NO
[2016-08-22 06:05] LABS: ALB/GLOB RATIO 0.7 (1.1-1.8); ALKALINE PHOSPHATASE 106 U/L (38-133); ALT/SGPT 43 U/L (7-56); AST/SGOT 70 U/L (15-59); BILIRUBIN,TOTAL 0.9 mg/dL (0.2-1.3); BLOOD UREA NITROGEN 13 mg/dL (7-21); CALCIUM 9.6 mg/dL (8.4-10.5); CARBON DIOXIDE 26 mmol/L (21-33); CHLORIDE 102 mmol/L (98-107); GFR AFRICAN-AMERICAN > 60; GLUCOSE,RANDOM 101 mg/dL (70-110); MAGNESIUM 1.8 mg/dL (1.7-2.2); POTASSIUM 3.8 mmol/L (3.6-5.0); SODIUM 139 mmol/L (132-148); TOTAL PROTEIN 9.7 g/dL (5.8-8.3)
[2016-08-22 06:22] LABS: BASO # 0.04 K/mm3 (0.0-2.0); BASO % 0.4 % (0.0-3.0); EOS # 0.3 (0.0-0.7); EOS % 3.5 % (1.5-5.0); GRAN # 5.19 (1.4-6.5); GRAN % 55.9 % (50.0-68.0); HEMATOCRIT 39.6 % (42.0-52.0); LYMPH # 2.8 (1.2-3.4); LYMPH % 30.4 % (22.0-35.0); MEAN CORPUSCULAR HEMOGLOBIN 32.4 pg (25.0-35.0); MEAN CORPUSCULAR HGB CONC 34.8 g/dl (31.0-37.0); MEAN PLATELET VOLUME 10.2 fl (7.0-11.0); MONO # 0.9 (0.1-0.6); MONO % 9.8 % (1.0-6.0); PLATELET COUNT 237 10^3/uL (120.0-450.0); RED CELL DISTRIBUTION WIDTH 12.8 % (11.5-14.5); WHITE BLOOD COUNT 9.3 10^3/ul (4.5-11.0)
[2016-08-22] MEDS: Pantoprazole 40 mg EC Tab PO SCH (07:45)
--- NOTE | 2016-08-22 08:36 | CP.PCM.PN ---
Subjective - Date & Time of Evaluation Date of Evaluation: 08/22/16 Time of Evaluation: 08:33 - Subjective Subjective: Surgery: Dr. Jack Pt seen and examined. Resting comfortably in chair. No complaints. To be downgraded from ICU today Objective - Vital Signs/Intake and Output Vital Signs (last 24 hours): Temp Pulse Resp BP Pulse Ox 99.4 F 86 11 L 163/98 H 97 08/22/16 04:00 08/22/16 07:30 08/22/16 07:30 08/22/16 04:00 08/22/16 04:00 Intake and Output: 08/22/16 08/22/16 06:59 18:59 Intake Total 220 Output Total 1350 Balance -1130 - Medications Medications: Current Medications Chlordiazepoxide (Librium) 10 mg PO Q8 [facility] PRN Reason: Protocol Last Admin: 08/22/16 07:45 Dose: 10 mg Clotrimazole (Lotrimin 1%) 0 gm TOP BID [facility] Last Admin: 08/21/16 17:12 Dose: 1 applic Desoximetasone (Topicort 0.25%) 0 ea TOP BID [facility] Last Admin: 08/21/16 17:12 Dose: 1 applic Diazepam (Valium) 5 mg IVP Q12H PRN; Protocol PRN Reason: Withdrawal/DT's Last Admin: 08/20/16 17:00 Dose: 5 mg Folic Acid (Folic Acid) 1 mg PO DAILY [facility] Heparin Sodium (Porcine) (Heparin) 5,000 units SC Q8 [facility] PRN Reason: Protocol Last Admin: 08/22/16 05:38 Dose: 5,000 units Loratadine (Claritin) 10 mg PO DAILY [facility] Last Admin: 08/21/16 09:10 Dose: 10 mg Lorazepam (Ativan) 2 mg IVP Q2 PRN; Protocol PRN Reason: Anxiety Last Admin: 08/20/16 01:52 Dose: 2 mg Lorazepam (Ativan) 3 mg IVP Q2H PRN; Protocol PRN Reason: Agitation Last Admin: 08/20/16 06:59 Dose: 3 mg Magnesium Oxide (Mag-Ox) 400 mg PO BID [facility] Last Admin: 08/21/16 17:11 Dose: 400 mg Metoprolol Tartrate (Lopressor) 25 mg PO Q12 [facility] Last Admin: 08/21/16 21:50 Dose: 25 mg Multivitamins (Thera Tab) 1 tab PO DAILY [facility] Last Admin: 08/21/16 09:10 Dose: 1 tab Pantoprazole Sodium (Protonix Ec Tab) 40 mg PO 0630 [facility] Last Admin: 08/22/16 07:45 Dose: 40 mg Prednisone (Prednisone Tab) 30 mg PO DAILY [facility] Last Admin: 08/21/16 09:13 Dose: 30 mg Thiamine HCl (Vitamin B1 Tab) 100 mg PO DAILY [facility] - Labs Labs: 08/22/16 05:30 08/22/16 05:30 PT 11.4 Seconds (9.9-11.8) 08/17/16 17:59 INR 1.06 (0.93-1.08) 08/17/16 17:59 APTT 30.4 Seconds (23.7-30.8) 08/18/16 05:00 - Constitutional Appears: Non-toxic, No Acute Distress - Head Exam Head Exam: ATRAUMATIC, NORMOCEPHALIC - Eye Exam Eye Exam: EOMI - ENT Exam ENT Exam: Mucous Membranes Moist - Neck Exam Neck Exam: Full ROM - Respiratory Exam Respiratory Exam: NORMAL BREATHING PATTERN. absent: Accessory Muscle Use, Respiratory Distress - GI/Abdominal Exam GI & Abdominal Exam: Soft. absent: Tenderness - Extremities Exam Additional comments: chronic skin changes B/L LE - Neurological Exam Neurological Exam: Alert, Awake, Oriented x3 - Skin Additional comments: multiple plaque like lesions noted on B/L legs, thighs, abd, arms Assessment and Plan - Assessment and Plan (Free Text) Assessment: 61M w. multiple skin lesions -will plan for punch biopsy tomorrow -patience choudhury attending Zemaitis PGY2
[2016-08-22] MEDS: Multivitamin Therapeutic Tab PO SCH (09:07)
[2016-08-22] MEDS: Magnesium Oxide 400 mg Tab UD PO SCH ×2 (09:07→17:15)
[2016-08-22] MEDS: Desoximetasone 0.25% Cream(15 gm) TOP SCH ×2 (09:09→17:27)
--- NOTE | 2016-08-22 10:17 | CP.PCM.PN ---
Subjective - Date & Time of Evaluation Date of Evaluation: 08/22/16 Time of Evaluation: 08:45 - Subjective Subjective: Patient seen and examined at bedside. No acute events reported overnight. Denies any new complaints. States his pruritis has been improving. Review of Systems - Review of Systems All systems: reviewed and no additional remarkable complaints except - Constitutional Constitutional: absent: Fever, Chills - EENT Eyes: absent: Blurred Vision Ears: absent: Dizziness - Cardiovascular Cardiovascular: absent: Chest Pain, Dyspnea - Respiratory Respiratory: absent: Cough, Dyspnea - Gastrointestinal Gastrointestinal: absent: Abdominal Pain, Nausea, Vomiting - Genitourinary Genitourinary: absent: Dysuria - Musculoskeletal Musculoskeletal: absent: Back Pain - Integumentary Integumentary: As Per HPI - Neurological Neurological: Tremor (mild) - Psychiatric Psychiatric: absent: Anxiety Objective - Vital Signs/Intake and Output Vital Signs (last 24 hours): Temp Pulse Resp BP Pulse Ox 97.8 F 90 14 163/98 H 97 08/22/16 08:00 08/22/16 09:07 08/22/16 08:50 08/22/16 09:07 08/22/16 04:00 Intake and Output: 08/22/16 08/22/16 06:59 18:59 Intake Total 220 Output Total 1350 Balance -1130 - Medications Medications: Current Medications Chlordiazepoxide (Librium) 10 mg PO Q8 [facility] PRN Reason: Protocol Last Admin: 08/22/16 07:45 Dose: 10 mg Clotrimazole (Lotrimin 1%) 0 gm TOP BID [facility] Last Admin: 08/21/16 17:12 Dose: 1 applic Desoximetasone (Topicort 0.25%) 0 ea TOP BID [facility] Last Admin: 08/22/16 09:09 Dose: 1 applic Diazepam (Valium) 5 mg IVP Q12H PRN; Protocol PRN Reason: Withdrawal/DT's Last Admin: 08/20/16 17:00 Dose: 5 mg Folic Acid (Folic Acid) 1 mg PO DAILY [facility] Last Admin: 08/22/16 09:07 Dose: 1 mg Heparin Sodium (Porcine) (Heparin) 5,000 units SC Q8 [facility] PRN Reason: Protocol Last Admin: 08/22/16 05:38 Dose: 5,000 units Loratadine (Claritin) 10 mg PO DAILY [facility] Last Admin: 08/22/16 09:07 Dose: 10 mg Lorazepam (Ativan) 2 mg IVP Q2 PRN; Protocol PRN Reason: Anxiety Last Admin: 08/20/16 01:52 Dose: 2 mg Lorazepam (Ativan) 3 mg IVP Q2H PRN; Protocol PRN Reason: Agitation Last Admin: 08/20/16 06:59 Dose: 3 mg Magnesium Oxide (Mag-Ox) 400 mg PO BID [facility] Last Admin: 08/22/16 09:07 Dose: 400 mg Metoprolol Tartrate (Lopressor) 25 mg PO Q12 [facility] Last Admin: 08/22/16 09:07 Dose: 25 mg Multivitamins (Thera Tab) 1 tab PO DAILY [facility] Last Admin: 08/22/16 09:07 Dose: 1 tab Pantoprazole Sodium (Protonix Ec Tab) 40 mg PO 30 [facility] Last Admin: 08/22/16 07:45 Dose: 40 mg Prednisone (Prednisone Tab) 30 mg PO DAILY [facility] Last Admin: 08/22/16 09:06 Dose: 30 mg Thiamine HCl (Vitamin B1 Tab) 100 mg PO DAILY [facility] Last Admin: 08/22/16 09:07 Dose: 100 mg - Labs Labs: 08/22/16 05:30 08/22/16 05:30 PT 11.4 Seconds (9.9-11.8) 08/17/16 17:59 INR 1.06 (0.93-1.08) 08/17/16 17:59 APTT 30.4 Seconds (23.7-30.8) 08/18/16 05:00 - Constitutional Appears: Well, No Acute Distress - Head Exam Head Exam: NORMAL INSPECTION - Eye Exam Eye Exam: EOMI - Neck Exam Neck Exam: Full ROM - Respiratory Exam Respiratory Exam: Clear to Ausculation Bilateral. absent: Rales - Cardiovascular Exam Cardiovascular Exam: Tachycardia, REGULAR RHYTHM, +S1, +S2 - GI/Abdominal Exam GI & Abdominal Exam: Soft, Normal Bowel Sounds. absent: Tenderness, Organomegaly - Extremities Exam Additional comments: bilateral LE scaly rash - Neurological Exam Neurological Exam: Alert, Awake, Oriented x3 Additional comments: mild tremor - Psychiatric Exam Psychiatric exam: Normal Affect, Normal Mood - Skin Additional comments: bilateral LE scaly rash Assessment and Plan - Assessment and Plan (Free Text) Plan: This is a 61 year old homeless male with past medical history of chronic ETOH abuse who presented with alcohol intoxication and diffuse body rash. He was transferred to ICU for acute alcohol withdrawal / delerium tremens requiring precedex drip. 1. Alcohol withdrawal - He is now off precedex drip. He is on ativan prn and librium 10 mg q8h. He was counselled on alcohol abstinence. Continue with multivitamin, folic acid and thiamine. He is downgraded from ICU and awaiting telemetry bed. 2. Diffuse body rash / lower extremity cellulitis - This is improving. He is now off antibiotics. LE dopplers were negative. He is being followed by ID and podiatry. Continue with wound care as per podiatry. He is on po predniose. Plan is for skin biopsy tomorrow. 3. Transient episode of SVT - Resolved. Likely secondary to ETOH abuse. He is on metoprolol. Echocardiogram was reviewed. Continue with protonix for GI prophylaxis and heparin for DVT prophylaxis. PT evaluation is requested. Continue with out of bed to chair. Patient is awaiting to be transferred to telemetry unit.
[2016-08-22] MEDS: Clotrimazole 1% Cream(30 gm) TOP SCH ×2 (10:32→17:28)
--- NOTE | 2016-08-22 15:38 | PN ---
DATE: 08/22/2016 SUBJECTIVE: The patient seen earlier this morning in 128, bed 5. He is awake and alert and doing be tter. No fevers and chills. PHYSICAL EXAMINATION: VITAL SIGNS: Temperature is 98, blood pressure is 160/90, respiratory rate of 16. HEENT: Unremarkable. NECK: Supple. LUNGS: Have decreased breath sounds. HEART: Normal S1, S2. ABDOMEN: Soft and nontender. LABORATORY DATA: Reveals the patient's white count of 9.3, hemoglobin of 13. Chemistries are noted. Procalcitonin 0.05. Urinalysis is noted. Toxicology is noted. Microbiology reveals the blood cul tures are no growth. Dr. Quiros's note is reviewed. Review of the orders reveals the patient to be o ff of antibiotics. Dr. Jack's note is reviewed. ASSESSMENT AND PLAN: This is a 61-year-old male with alcoholism and treated for scabies, does have a rash and currently off of antibiotics, is being watched for alcohol withdrawal symptoms and no evide nce of cellulitis, afebrile. A skin biopsy was sent for AFB smears and cultures, fungal smears and c ultures in addition to routine Gram stain cultures and pathology. The patient is HIV is negative. R MD is negative. We will follow with you. Rosendo Pack MD cc: [phone] TT: 08/22/2016 15:37:40 Confirmation # [id number] Dictation # [id number]
[2016-08-23 05:59] LABS: ADD MANUAL DIFF? NO
[2016-08-23 06:05] LABS: BASO # 0.04 K/mm3 (0.0-2.0); BASO % 0.4 % (0.0-3.0); EOS # 0.3 (0.0-0.7); EOS % 2.8 % (1.5-5.0); GRAN # 6.17 (1.4-6.5); GRAN % 58.5 % (50.0-68.0); HEMATOCRIT 37.6 % (42.0-52.0); LYMPH # 2.9 (1.2-3.4); LYMPH % 27.6 % (22.0-35.0); MEAN CELL VOLUME 93.1 fL (80.0-105.0); MEAN CORPUSCULAR HEMOGLOBIN 31.7 pg (25.0-35.0); MEAN PLATELET VOLUME 10.7 fl (7.0-11.0); MONO # 1.1 (0.1-0.6); MONO % 10.7 % (1.0-6.0); PLATELET COUNT 230 10^3/uL (120.0-450.0); WHITE BLOOD COUNT 10.5 10^3/ul (4.5-11.0)
[2016-08-23] MEDS: Pantoprazole 40 mg EC Tab PO SCH (06:40)
[2016-08-23 06:51] LABS: ALB/GLOB RATIO 0.7 (1.1-1.8); ALKALINE PHOSPHATASE 105 U/L (38-133); ALT/SGPT 41 U/L (7-56); AST/SGOT 59 U/L (15-59); BILIRUBIN,TOTAL 0.8 mg/dL (0.2-1.3); BLOOD UREA NITROGEN 15 mg/dL (7-21); CALCIUM 9.1 mg/dL (8.4-10.5); CARBON DIOXIDE 28 mmol/L (21-33); CHLORIDE 103 mmol/L (98-107); GFR AFRICAN-AMERICAN > 60; GLUCOSE,RANDOM 108 mg/dL (70-110); POTASSIUM 3.8 mmol/L (3.6-5.0); SODIUM 139 mmol/L (132-148); TOTAL PROTEIN 9.4 g/dL (5.8-8.3)
--- NOTE | 2016-08-23 07:44 | CP.PCM.PN ---
Subjective - Date & Time of Evaluation Date of Evaluation: 08/23/16 Time of Evaluation: 07:45 - Subjective Subjective: Dr. Rosendo Márquez PGY1 Surgery Note for Dr. 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 Patient denies any symptoms today other than generalized itchiness of the body where the lesions are; denies fevers/chills, COCHRAN, CP, SOB, abdominal pain, N/V/D, dysuria/ freq/urg, or lower extremity pain/swelling. Objective - Vital Signs/Intake and Output Vital Signs (last 24 hours): Temp Pulse Resp BP Pulse Ox 98.6 F 78 11 L 125/84 97 08/23/16 04:00 08/23/16 07:00 08/23/16 07:00 08/23/16 04:25 08/22/16 04:00 Intake and Output: 08/23/16 08/23/16 06:59 18:59 Intake Total 240 Output Total 850 Balance -610 - Medications Medications: Current Medications Chlordiazepoxide (Librium) 10 mg PO Q8 [facility] PRN Reason: Protocol Last Admin: 08/23/16 06:41 Dose: 10 mg Clotrimazole (Lotrimin 1%) 0 gm TOP BID [facility] Last Admin: 08/22/16 17:28 Dose: 1 applic Desoximetasone (Topicort 0.25%) 0 ea TOP BID [facility] Last Admin: 08/22/16 17:27 Dose: 1 applic Diazepam (Valium) 5 mg IVP Q12H PRN; Protocol PRN Reason: Withdrawal/DT's Last Admin: 08/20/16 17:00 Dose: 5 mg Folic Acid (Folic Acid) 1 mg PO DAILY [facility] Last Admin: 08/22/16 09:07 Dose: 1 mg Heparin Sodium (Porcine) (Heparin) 5,000 units SC Q8 [facility] PRN Reason: Protocol Last Admin: 08/23/16 07:22 Dose: Not Given Loratadine (Claritin) 10 mg PO DAILY [facility] Last Admin: 08/22/16 09:07 Dose: 10 mg Lorazepam (Ativan) 2 mg IVP Q2 PRN; Protocol PRN Reason: Anxiety Last Admin: 08/20/16 01:52 Dose: 2 mg Lorazepam (Ativan) 3 mg IVP Q2H PRN; Protocol PRN Reason: Agitation Last Admin: 08/20/16 06:59 Dose: 3 mg Magnesium Oxide (Mag-Ox) 400 mg PO BID [facility] Last Admin: 08/22/16 17:15 Dose: 400 mg Metoprolol Tartrate (Lopressor) 25 mg PO Q12 [facility] Last Admin: 08/22/16 21:44 Dose: 25 mg Multivitamins (Thera Tab) 1 tab PO DAILY [facility] Last Admin: 08/22/16 09:07 Dose: 1 tab Pantoprazole Sodium (Protonix Ec Tab) 40 mg PO 0630 [facility] Last Admin: 08/23/16 06:40 Dose: 40 mg Prednisone (Prednisone Tab) 20 mg PO DAILY [facility] Thiamine HCl (Vitamin B1 Tab) 100 mg PO DAILY [facility] Last Admin: 08/22/16 09:07 Dose: 100 mg - Labs Labs: 08/23/16 05:30 08/23/16 05:30 PT 11.4 Seconds (9.9-11.8) 08/17/16 17:59 INR 1.06 (0.93-1.08) 08/17/16 17:59 APTT 30.4 Seconds (23.7-30.8) 08/18/16 05:00 - Head Exam Additional comments: Head Exam: ATRAUMATIC, NORMOCEPHALIC - Eye Exam Eye Exam: EOMI - ENT Exam ENT Exam: Mucous Membranes Moist - Neck Exam Neck Exam: Full ROM - Respiratory Exam Respiratory Exam: NORMAL BREATHING PATTERN. absent: Accessory Muscle Use, Respiratory Distress - GI/Abdominal Exam GI & Abdominal Exam: Soft. absent: Tenderness, guarding - Extremities Exam Additional comments: chronic skin changes B/L LE - Neurological Exam Neurological Exam: Alert, Awake, Oriented x3 - Skin Additional comments: multiple plaque like lesions noted on B/L legs, thighs, abd, arms, pruritic, negative nikolsky sign Assessment and Plan - Assessment and Plan (Free Text) Assessment: 61M w. multiple skin lesions originally admitted to the ICU for Delirium Tremens -will plan for punch biopsy today; f/u path -patient is otherwise stable Dr. Rosendo Márquez PGY1 Surgery Note for Dr. Jack
[2016-08-23] MEDS: Clotrimazole 1% Cream(30 gm) TOP SCH ×2 (09:42→18:52)
[2016-08-23] MEDS: Multivitamin Therapeutic Tab PO SCH (09:42)
[2016-08-23] MEDS: Magnesium Oxide 400 mg Tab UD PO SCH ×2 (09:42→18:52)
[2016-08-23] MEDS: Desoximetasone 0.25% Cream(15 gm) TOP SCH ×2 (09:43→18:52)
--- NOTE | 2016-08-23 12:59 | CP.PCM.PN ---
<Marito Watkins - Last Filed: 08/23/16 12:55> Subjective - Date & Time of Evaluation Date of Evaluation: 08/23/16 Time of Evaluation: 07:30 - Subjective Subjective: Dr. Watkins PGY 1 Hospitalist Note Patient seen and evaluated at bedside. He states he is feeling much better and his shaking has resolved. He notes he continues to have an itch in the upper and lower extremities. He denies any nausea, vomiting, chest pain, SOB, fever, chills, diarrhea, or constipation. Objective - Vital Signs/Intake and Output Vital Signs (last 24 hours): Temp Pulse Resp BP Pulse Ox 98.6 F 104 H 11 L 125/84 97 08/23/16 04:00 08/23/16 10:00 08/23/16 07:00 08/23/16 04:25 08/22/16 04:00 Intake and Output: 08/23/16 08/23/16 06:59 18:59 Intake Total 240 Output Total 850 Balance -610 - Medications Medications: Current Medications Chlordiazepoxide (Librium) 10 mg PO BID [facility] PRN Reason: Protocol Clotrimazole (Lotrimin 1%) 0 gm TOP BID [facility] Last Admin: 08/23/16 09:42 Dose: 1 applic Desoximetasone (Topicort 0.25%) 0 ea TOP BID [facility] Last Admin: 08/23/16 09:43 Dose: 1 applic Diazepam (Valium) 5 mg IVP Q12H PRN; Protocol PRN Reason: Withdrawal/DT's Last Admin: 08/20/16 17:00 Dose: 5 mg Folic Acid (Folic Acid) 1 mg PO DAILY [facility] Last Admin: 08/23/16 09:42 Dose: 1 mg Heparin Sodium (Porcine) (Heparin) 5,000 units SC Q8 [facility] PRN Reason: Protocol Last Admin: 08/23/16 07:22 Dose: Not Given Loratadine (Claritin) 10 mg PO DAILY [facility] Last Admin: 08/23/16 09:42 Dose: 10 mg Lorazepam (Ativan) 2 mg IVP Q2 PRN; Protocol PRN Reason: Anxiety Last Admin: 08/20/16 01:52 Dose: 2 mg Lorazepam (Ativan) 3 mg IVP Q2H PRN; Protocol PRN Reason: Agitation Last Admin: 08/20/16 06:59 Dose: 3 mg Magnesium Oxide (Mag-Ox) 400 mg PO BID [facility] Last Admin: 08/23/16 09:42 Dose: 400 mg Metoprolol Tartrate (Lopressor) 25 mg PO Q12 [facility] Last Admin: 08/23/16 09:42 Dose: 25 mg Multivitamins (Thera Tab) 1 tab PO DAILY [facility] Last Admin: 08/23/16 09:42 Dose: 1 tab Pantoprazole Sodium (Protonix Ec Tab) 40 mg PO 0630 [facility] Last Admin: 08/23/16 06:40 Dose: 40 mg Prednisone (Prednisone Tab) 15 mg PO DAILY [facility] Thiamine HCl (Vitamin B1 Tab) 100 mg PO DAILY [facility] Last Admin: 08/23/16 09:42 Dose: 100 mg - Labs Labs: 08/23/16 05:30 08/23/16 05:30 PT 11.4 Seconds (9.9-11.8) 08/17/16 17:59 INR 1.06 (0.93-1.08) 08/17/16 17:59 APTT 30.4 Seconds (23.7-30.8) 08/18/16 05:00 - Constitutional Appears: Non-toxic, No Acute Distress - Head Exam Head Exam: ATRAUMATIC, NORMOCEPHALIC - Eye Exam Eye Exam: EOMI, PERRL. absent: Normal appearance (arcus sinilis) Pupil Exam: NORMAL ACCOMODATION, PERRL - ENT Exam ENT Exam: Mucous Membranes Moist, Normal Oropharynx - Neck Exam Neck Exam: Normal Inspection - Respiratory Exam Respiratory Exam: Clear to Ausculation Bilateral, NORMAL BREATHING PATTERN. absent: Rales, Rhonchi, Wheezes - Cardiovascular Exam Cardiovascular Exam: REGULAR RHYTHM, +S1, +S2. absent: Gallop, Rubs, Murmur - GI/Abdominal Exam GI & Abdominal Exam: Soft, Normal Bowel Sounds. absent: Distended, Firm, Tenderness - Extremities Exam Extremities Exam: Normal Capillary Refill. absent: Normal Inspection (erythema and hyperkeratosis on upper and lower extremities), Pedal Edema, Tenderness - Back Exam Back Exam: rash noted. absent: NORMAL INSPECTION (rash), paraspinal tenderness , tenderness - Neurological Exam Neurological Exam: Alert, Awake, CN II-XII Intact, Oriented x3 - Psychiatric Exam Psychiatric exam: Normal Affect, Normal Mood - Skin Skin Exam: Dry, Rash, Urticaria, Warm Assessment and Plan - Assessment and Plan (Free Text) Assessment: This is a 61 year old homeless male with past medical history of chronic ETOH abuse who presented with alcohol intoxication and diffuse body rash. He was transferred to ICU for acute alcohol withdrawal / delerium tremens requiring precedex drip. Currently off drip and awaiting transfer to medical floor. Plan: Diffuse Rash: * ID consulted, help appreciated * He remains afebrile w/o leukocytosis * Lower Extremity venous dopplers - no sonographic evidence for DVTs (please see full report) * Podiatry consulted due to bilateral eschar and hyperkeratotic lesions * Surgery consulted for biopsy- f/u results * Blood and urine cultures negative * Fungal culture negative * Consult surgery for biopsy. Punch biopsy tentatively scheduled for Tuesday. Will f/u biopsy results * ESR of 52 * CRP of 3.39 * C3 low at 87 C4 19.3 * HIV and RPR negative * Continue loratidine to control pruritis (held while sedated) * completed course of doxycycline and fluconazole * given Ivermectin 14 mg po once * decrease prednisone to 15mg po daily * topical Lotrimin and Topicort Alcohol Withdrawal: * Patient is off precedex drip. Currently on Librium 10mg PO BID and Valium 5mg IVP Q12 PRN * Continue Thiamine 100 mg IV * Continue Folic Acid 1 mg IV * continue Ativan 1 mg IV q2h prn * CIWAA protocol * educated on importance of abstinence SVT * responded spontaneously- likely from withdrawals * electrolytes replenished as needed * continue metoprolol 25mg PO BID Depression: * Psychiatry consult, Dr. Goldstein, help appreciated. * Counseling as needed Prophylactic Measures: * DVT: Heparin 5000 units sc q8h, * SCDs contraindicated to b/l LE edema * Protonix 40 mg po qd Dispo: Transfer to medical floor Assessment and plan discussed with attending physician. <Patrick ESTEBAN,Brad - Last Filed: 08/23/16 14:22> Objective - Vital Signs/Intake and Output Vital Signs (last 24 hours): Temp Pulse Resp BP Pulse Ox 98.6 F 104 H 11 L 125/84 97 08/23/16 04:00 08/23/16 10:00 08/23/16 07:00 08/23/16 04:25 08/22/16 04:00 Intake and Output: 08/23/16 08/23/16 06:59 18:59 Intake Total 240 Output Total 850 Balance -610 - Medications Medications: Current Medications Chlordiazepoxide (Librium) 10 mg PO BID [facility] PRN Reason: Protocol Clotrimazole (Lotrimin 1%) 0 gm TOP BID [facility] Last Admin: 08/23/16 09:42 Dose: 1 applic Desoximetasone (Topicort 0.25%) 0 ea TOP BID [facility] Last Admin: 08/23/16 09:43 Dose: 1 applic Diazepam (Valium) 5 mg IVP Q12H PRN; Protocol PRN Reason: Withdrawal/DT's Last Admin: 08/20/16 17:00 Dose: 5 mg Folic Acid (Folic Acid) 1 mg PO DAILY [facility] Last Admin: 08/23/16 09:42 Dose: 1 mg Heparin Sodium (Porcine) (Heparin) 5,000 units SC Q8 ANH PRN Reason: Protocol Last Admin: 08/23/16 07:22 Dose: Not Given Loratadine (Claritin) 10 mg PO DAILY [facility] Last Admin: 08/23/16 09:42 Dose: 10 mg Lorazepam (Ativan) 2 mg IVP Q2 PRN; Protocol PRN Reason: Anxiety Last Admin: 08/20/16 01:52 Dose: 2 mg Lorazepam (Ativan) 3 mg IVP Q2H PRN; Protocol PRN Reason: Agitation Last Admin: 08/20/16 06:59 Dose: 3 mg Magnesium Oxide (Mag-Ox) 400 mg PO BID [facility] Last Admin: 08/23/16 09:42 Dose: 400 mg Metoprolol Tartrate (Lopressor) 25 mg PO Q12 [facility] Last Admin: 08/23/16 09:42 Dose: 25 mg Multivitamins (Thera Tab) 1 tab PO DAILY [facility] Last Admin: 08/23/16 09:42 Dose: 1 tab Pantoprazole Sodium (Protonix Ec Tab) 40 mg PO 0630 [facility] Last Admin: 08/23/16 06:40 Dose: 40 mg Prednisone (Prednisone Tab) 15 mg PO DAILY [facility] Thiamine HCl (Vitamin B1 Tab) 100 mg PO DAILY [facility] Last Admin: 08/23/16 09:42 Dose: 100 mg - Labs Labs: 08/23/16 05:30 08/23/16 05:30 PT 11.4 Seconds (9.9-11.8) 08/17/16 17:59 INR 1.06 (0.93-1.08) 08/17/16 17:59 APTT 30.4 Seconds (23.7-30.8) 08/18/16 05:00 Attending/Attestation - Attestation I have personally seen and examined this patient.: Yes I have fully participated in the care of the patient.: Yes I have reviewed all pertinent clinical information, including history, physical exam and plan: Yes Notes (Text): 08/23/16 14:18 Patient was seen and examined with medical device .Agreed with resident assessment and plan. 61 yrs old male was transferred in [facility] for severe alcohol withdrawal, off Precedex drip, alcohol withdrawal are better.Patient is alert,awake and oriented. Patient had skin biopsy today, prednisone dose can be decreased to 15 mg po daily.The rash are less itchy today and slowly improving. Management plan was discussed in detail with patient Education was provided.
[2016-08-23 20:39] VITALS: RESP 20
[2016-08-24] MEDS: Pantoprazole 40 mg EC Tab PO SCH (06:09)
[2016-08-24 06:53] LABS: ADD MANUAL DIFF? NO
[2016-08-24 07:02] LABS: BASO # 0.06 K/mm3 (0.0-2.0); BASO % 0.6 % (0.0-3.0); EOS # 0.3 (0.0-0.7); GRAN # 5.89 (1.4-6.5); GRAN % 55.8 % (50.0-68.0); HEMATOCRIT 39.3 % (42.0-52.0); LYMPH # 3.4 (1.2-3.4); LYMPH % 31.7 % (22.0-35.0); MEAN CELL VOLUME 93.6 fL (80.0-105.0); MEAN CORPUSCULAR HEMOGLOBIN 31.2 pg (25.0-35.0); MEAN CORPUSCULAR HGB CONC 33.3 g/dl (31.0-37.0); MEAN PLATELET VOLUME 10.4 fl (7.0-11.0); MONO # 0.9 (0.1-0.6); MONO % 8.9 % (1.0-6.0); PLATELET COUNT 239 10^3/uL (120.0-450.0); RED CELL DISTRIBUTION WIDTH 13.3 % (11.5-14.5); WHITE BLOOD COUNT 10.6 10^3/ul (4.5-11.0)
[2016-08-24 07:12] LABS: BLOOD UREA NITROGEN 16 mg/dL (7-21); CALCIUM 9.5 mg/dL (8.4-10.5); CARBON DIOXIDE 27 mmol/L (21-33); CHLORIDE 103 mmol/L (98-107); GFR AFRICAN-AMERICAN > 60; GLUCOSE,RANDOM 110 mg/dL (70-110); POTASSIUM 3.9 mmol/L (3.6-5.0); SODIUM 138 mmol/L (132-148)
--- NOTE | 2016-08-24 08:12 | PN ---
DATE: 08/23/2016 The patient is in bed in room 361, bed 1. No fevers and no chills, no nausea. PHYSICAL EXAMINATION: VITAL SIGNS: Temperature is 98, blood pressure is 149/100, respiratory rate of 16. HEENT: Unremarkable. NECK: Supple. LUNGS: Have decreased breath sounds. HEART: Normal S1, S2. ABDOMEN: Soft, nontender. LABORATORY EXAMINATION: Reveals the patient's white count is 10,000, hemoglobin of 12 and the microb iology is noted. Cultures are negative. Review of the orders reveals the patient to be off of antib iotics and Dr. Nguyen's note is reviewed. note is reviewed. ASSESSMENT AND PLAN: A 61-year-old male with alcoholism treated for scabies. He did have a rash, cu rrently off of antibiotics. Watch for alcohol withdrawals. There has been no evidence of cellulitis . The patient had a skin biopsy and if the rash does not resolve, send for AFB, fungal smears and cu ltures, Gram stain and routine cultures and pathology. We will follow with you. Rosendo Pack MD cc: [id number] TT: 08/23/2016 18:47:41 Confirmation # [id number] Dictation # [id number] mn
[2016-08-24 08:31] VITALS: BP 147/91; PULSE 81; TEMP 98.3; O2SAT 99
[2016-08-24] MEDS: Multivitamin Therapeutic Tab PO SCH (09:31)
[2016-08-24] MEDS: Magnesium Oxide 400 mg Tab UD PO SCH (09:31)
[2016-08-24] MEDS: Clotrimazole 1% Cream(30 gm) TOP SCH (09:33)
[2016-08-24] MEDS: Desoximetasone 0.25% Cream(15 gm) TOP SCH (09:33)
--- NOTE | 2016-08-24 11:22 | OP ---
PROCEDURE DATE: 08/23/2016 The patient has multiple skin lesions which were biopsied with the punch and closed with a stitch. I do not really have a diagnosis yet. Will watch expectantly. Stitch can be removed in about a week. Oswaldo Jack MD cc: [id number] TT: 08/24/2016 10:19:38 mn 08/24/2016 10:21:40
--- NOTE | 2016-08-24 13:27 | CP.PCM.DIS ---
<Marito Watkins - Last Filed: 08/25/16 17:41> Provider - Provider Date of Admission: 08/17/16 20:32 Attending physician: Brad Nguyen MD Primary care physician: NO PRIMARY CARE PROVIDER Consults: Dr. Rosendo Goldsteni Time Spent in preparation of Discharge (in minutes): 45 Hospital Course - Lab Results Lab Results: Micro Results 08/20/16 13:20 Blood-Venous Blood Culture - Preliminary NO GROWTH AFTER 4 DAYS 08/20/16 13:20 Blood-Venous Blood Culture - Preliminary NO GROWTH AFTER 4 DAYS 08/21/16 11:33 Sputum Gram Stain - Final 08/21/16 11:33 Sputum Sputum Culture - Final NORMAL ORAL EMELY 08/21/16 11:33 Urine,Clean Catch Urine Culture - Final No Growth (<1,000 CFU/ML) 08/19/16 09:15 Other: Please Indicate Fungal Culture - Preliminary Most Recent Lab Values WBC 10.6 10^3/ul (4.5-11.0) 08/24/16 06:30 RBC 4.20 10^6/uL (3.5-6.1) 08/24/16 06:30 Hgb 13.1 gm/dL (14.0-18.0) L 08/24/16 06:30 Hct 39.3 % (42.0-52.0) L 08/24/16 06:30 MCV 93.6 fL (80.0-105.0) 08/24/16 06:30 MCH 31.2 pg (25.0-35.0) 08/24/16 06:30 MCHC 33.3 g/dl (31.0-37.0) 08/24/16 06:30 RDW 13.3 % (11.5-14.5) 08/24/16 06:30 Plt Count 239 10^3/uL (120.0-450.0) 08/24/16 06:30 MPV 10.4 fl (7.0-11.0) 08/24/16 06:30 Gran % 55.8 % (50.0-68.0) 08/24/16 06:30 Lymph % (Auto) 31.7 % (22.0-35.0) 08/24/16 06:30 [place] % (Auto) 8.9 % (1.0-6.0) H 08/24/16 06:30 Eos % (Auto) 3.0 % (1.5-5.0) 08/24/16 06:30 Baso % (Auto) 0.6 % (0.0-3.0) 08/24/16 06:30 Gran # 5.89 (1.4-6.5) 08/24/16 06:30 Lymph # 3.4 (1.2-3.4) 08/24/16 06:30 [place] # 0.9 (0.1-0.6) H 08/24/16 06:30 Eos # 0.3 (0.0-0.7) 08/24/16 06:30 Baso # 0.06 K/mm3 (0.0-2.0) 08/24/16 06:30 ESR 52 mm/hr (0.00-15.0) H 08/18/16 05:00 PT 11.4 Seconds (9.9-11.8) 08/17/16 17:59 INR 1.06 (0.93-1.08) 08/17/16 17:59 APTT 30.4 Seconds (23.7-30.8) 08/18/16 05:00 pCO2 49 mm/Hg (35-45) H 08/20/16 12:11 pO2 107.0 mm/Hg (80-100) H 08/20/16 12:11 HCO3 25.8 mmol/L (21-28) 08/20/16 12:11 ABG pH 7.33 (7.35-7.45) L 08/20/16 12:11 ABG Total CO2 27.3 mmol.L (22-28) 08/20/16 12:11 ABG O2 Saturation 98.8 % (95-98) H 08/20/16 12:11 ABG O2 Content 16.3 ML/dl (15-23) 08/20/16 12:11 ABG Base Excess -0.6 mmol/L (-2.0-3.0) 08/20/16 12:11 ABG Hemoglobin 11.9 g/dL (11.7-17.4) 08/20/16 12:11 ABG Carboxyhemoglobin 1.8 % (0.5-1.5) H 08/20/16 12:11 POC ABG HHb (Measured) 1.2 % (0-5) 08/20/16 12:11 ABG Methemoglobin 0.6 % (0.0-3.0) 08/20/16 12:11 ABG O2 Capacity 16.5 mL/dl (16-24) 08/20/16 12:11 VBG pH 7.47 (7.32-7.43) H 08/18/16 00:30 VBG pCO2 43.0 (40-60) 08/18/16 00:30 VBG HCO3 31.3 mmol/l (21-28) H 08/18/16 00:30 VBG Total CO2 32.6 mmol.L (22-28) H 08/18/16 00:30 VBG O2 Sat (Calc) 76.4 % (40-65) H 08/18/16 00:30 VBG Base Excess 6.8 mmol/L (0.0-2.0) H 08/18/16 00:30 VBG Potassium 3.8 mmol/L (3.6-5.2) 08/18/16 00:30 Hgb O2 Saturation 96.5 % (95.0-98.0) 08/20/16 12:11 Sodium 145.0 mmol/L (132-148) 08/18/16 00:30 Chloride 110.0 mmol/L (98-107) H 08/18/16 00:30 Glucose 102 mg/dl (75-110) 08/18/16 00:30 Lactate 2.1 mmol/L (0.7-2.1) 08/18/16 00:30 FiO2 28.0 % 08/20/16 12:11 Sodium 138 mmol/L (132-148) 08/24/16 06:30 Potassium 3.9 mmol/L (3.6-5.0) 08/24/16 06:30 Chloride 103 mmol/L (98-107) 08/24/16 06:30 Carbon Dioxide 27 mmol/L (21-33) 08/24/16 06:30 Anion Gap 12 (10-20) 08/24/16 06:30 BUN 16 mg/dL (7-21) 08/24/16 06:30 Creatinine 0.7 mg/dL (0.5-1.4) 08/24/16 06:30 Est GFR ( Amer) > 60 08/24/16 06:30 Est GFR (Non-Af Amer) > 60 08/24/16 06:30 Random Glucose 110 mg/dL (70-110) 08/24/16 06:30 Calcium 9.5 mg/dL (8.4-10.5) 08/24/16 06:30 Phosphorus 3.4 mg/dL (2.5-4.5) 08/18/16 05:00 Magnesium 2.0 mg/dL (1.7-2.2) 08/23/16 05:30 Total Bilirubin 0.8 mg/dL (0.2-1.3) 08/23/16 05:30 AST 59 U/L (15-59) 08/23/16 05:30 ALT 41 U/L (7-56) 08/23/16 05:30 Alkaline Phosphatase 105 U/L (38-133) 08/23/16 05:30 Lactate Dehydrogenase 723 U/L (333-699) H 08/17/16 17:59 Total Creatine Kinase 98 U/L (35-230) 04 17:59 Troponin I < 0.01 ng/mL 04 17:59 C-React Prot High Sens 3.39 mg/L (1.00-3.00) H 08/17/16 17:59 NT-Pro-B Natriuret Pep 30.2 pg/mL (0-450) 08/17/16 17:59 Total Protein 9.4 g/dL (5.8-8.3) H 08/23/16 05:30 Albumin 3.8 g/dL (3.0-4.8) 08/23/16 05:30 Globulin 5.5 gm/dL 08/23/16 05:30 Albumin/Globulin Ratio 0.7 (1.1-1.8) L 08/23/16 05:30 Procalcitonin 0.05 NG/ML (0.19-0.49) L 08/20/16 09:49 TSH 3rd Generation 3.93 mIU/mL (0.46-4.68) 08/20/16 06:00 Venous Blood Potassium 3.8 mmol/L (3.6-5.2) 08/18/16 00:30 Urine Color Yellow (YELLOW) 08/21/16 11:33 Urine Appearance Clear (CLEAR) 08/21/16 11:33 Urine pH 6.0 (4.7-8.0) 08/21/16 11:33 Ur Specific [place] 1.020 (1.005-1.035) 08/21/16 11:33 Urine Protein Negative mg/dL (<30 mg/dL) 08/21/16 11:33 Urine Glucose (UA) Negative mg/dL (NEGATIVE) 08/21/16 11:33 Urine Ketones Trace mg/dL (NEGATIVE) H 08/21/16 11:33 Urine Blood Negative (NEGATIVE) 08/21/16 11:33 Urine Nitrate Negative (NEGATIVE) 08/21/16 11:33 Urine Bilirubin Negative (NEGATIVE) 08/21/16 11:33 Urine Urobilinogen 0.2 E.U./dL (<1 E.U./dL) 08/21/16 11:33 Ur Leukocyte Esterase Negative Derick/uL (NEGATIVE) 08/21/16 11:33 Urine RBC 1 - 3 /hpf (0-2) 08/17/16 20:25 Urine WBC 0 - 2 /hpf (0-6) 08/17/16 20:25 Ur Epithelial Cells 0 - 2 /hpf (0-5) 08/17/16 20:25 Urine Bacteria Few (NEG) 08/17/16 20:25 Urine Opiates Screen Negative (NEGATIVE) 08/17/16 20:25 Urine Methadone Screen Negative (NEGATIVE) 08/17/16 20:25 Ur Barbiturates Screen Negative (NEGATIVE) 08/17/16 20:25 Ur Phencyclidine Scrn Negative (NEGATIVE) 08/17/16 20:25 Ur Amphetamines Screen Negative (NEGATIVE) 08/17/16 20:25 U Benzodiazepines Scrn Negative (NEGATIVE) 08/17/16 20:25 U Oth Cocaine Metabols Negative (NEGATIVE) 08/17/16 20:25 U Cannabinoids Screen Negative (NEGATIVE) 08/17/16 20:25 Alcohol, Quantitative 429 mg/dL (0-10) H* 08/17/16 17:59 GRISELDA Screen Negative (Negative) 08/19/16 06:30 Complement C3 87.0 mg/dL (88.0-165.0) L 08/18/16 10:50 Complement C4 19.3 mg/dL (14.0-44.0) 08/18/16 10:50 RPR Nonreactive (NONREACTIVE) 08/20/16 08:30 HIV-1 Ab Rapid Screen Non reactive (NON REAC) 08/18/16 05:00 HIV 1&2 Antibody Screen Negative (NEGATIVE) 08/20/16 08:30 - Hospital Course Hospital Course: H&P: Pt is a 61 year old male with no reported PMHx who presented to the ED with complaints of rash throughout his body that he reports began about 4 months ago. Pt states that the rash has been growing in size and spreading throughout the body. Pt reports that the rash is itchy, but not painful and draining. He reports that he went to his PMD in [place] who gave him a steroid cream, which did not help. He also reports that he went to [facility] in [place] and was released and told that they could not help him. Pt also reports that he has a history of alcohol abuse and has been drinking daily for many years. He reports that he drinks 5-7 beers and some shots of whiskey or bacardi. He reports that when he does not drink he gets shakes. He also reports that he has been living with his [id number] ever since he from his , and he has been depressed. Pt denies fever, chills, chest pain, shortness of breath, nausea, and vomiting. Patient is a 61 y/o M who presented with complaint of a rash for 4 months. ID and podiatry were consulted and patient was started on IV antibiotics. Duplex of lower extremities was negative for DVT. Urine, blood, and fungal cutltures were negative. Surgery was consulted for biopsy of leg tissue. He was started on Lotrimin and Topicort as well as IV steroids. As patient is an alcoholic, he developed withdrawal symptoms , run of SVT which corrected, requiring IV sedation and metoprolol and monitoring in ICU. He was weaned from precedex and placed on ativan and librium taper. Patient's withdrawal symptoms improved. His pruritis and rash improved on steroids. He was placed on an oral steroid taper. due to his alcoholism and depression, he was evaluated by psychiatry and given resources for alcoholism. He was determined medically stable for discharge. He was told: you are discharged with prescriptions for Lotrimin and Topicort cream , Folic acid, thiamine, a multivitamin, mag-ox, lopressor, and a prednisone taper; take the Prednisone 10mg daily for 2 days and take the prednisone 5 mg for 2 days after that; take medications as prescribed; follow up with your primary care physician within a week of discharge; uou will need to have your primary care review the pathology report here at [facility]; please refrain from alcohol, drug, or tobacco use; please attend alcoholics anonymous meetings; you may return to work on TuesdayAugust 30; if your condition worsens or new symptoms arise, please return to the emergency room. He verbalized understanding and was discharged home. This is a brief summary of the patient's stay at this facility. For more detail , see patient's full chart. - Date & Time of H&P Date of H&P: 08/18/16 Time of H&P: 00:55 Discharge Exam - Head Exam Head Exam: ATRAUMATIC, NORMOCEPHALIC - Eye Exam Eye Exam: EOMI, PERRL. absent: Normal appearance (acrus sinilis) Pupil Exam: NORMAL ACCOMODATION, PERRL - ENT Exam ENT Exam: Mucous Membranes Moist, Normal Oropharynx - Neck Exam Neck exam: Normal Inspection - Respiratory Exam Respiratory Exam: NORMAL BREATHING PATTERN. absent: Rales, Rhonchi, Wheezes - Cardiovascular Exam Cardiovascular Exam: REGULAR RHYTHM, +S1, +S2. absent: Gallop, Rubs, Systolic Murmur - GI/Abdominal Exam GI & Abdominal Exam: Normal Bowel Sounds, Soft. absent: Firm, Guarding, Tenderness - Extremities Exam Extremities exam: normal capillary refill, pedal pulses present Additional comments: rash healing on legs and arms - Back Exam Back exam: rash noted. absent: tenderness - Neurological Exam Neurological exam: Alert, CN II-XII Intact, Oriented x3 - Psychiatric Exam Psychiatric exam: Normal Affect, Normal Mood - Skin Skin Exam: Dry, Normal Color, Rash, Warm Discharge Plan - Discharge Medications Prescriptions: Clotrimazole 1% Cream [Lotrimin 1%] 1 tub TOP BID #1 Desoximetasone 0.25% [Topicort 0.25%] 1 tub TOP BID #1 Folic Acid 1 mg PO DAILY #30 tab Loratadine [Claritin] 10 mg PO DAILY #30 tab Magnesium Oxide [Mag-Ox] 400 mg PO BID #60 tab Metoprolol Tartrate [Lopressor] 25 mg PO Q12 #60 tab Multivitamin Therapeutic Tab [Thera Tab] 1 tab PO DAILY #30 tab predniSONE [predniSONE Tab] 10 mg PO DAILY #2 tab predniSONE [predniSONE Tab] 5 mg PO DAILY #2 tab Thiamine [Vitamin B1 Tab] 100 mg PO DAILY #30 tab - Follow Up Plan Condition: GOOD Disposition: HOME/ ROUTINE Instructions: Cellulitis (DC), Cellulitis (GEN), Abuse of Alcohol (DC) Additional Instructions: You are medically stable for discharge. You are discharged with prescriptions for Lotrimin and Topicort cream, Folic acid, thiamine, a multivitamin, mag-ox, lopressor, and a prednisone taper. Please take the Prednisone 10mg daily for 2 days and take the prednisone 5 mg for 2 days after that. Please take medications as prescribed. Please follow up with your primary care physician within a week of discharge. You will need to have your primary care review the pathology report here at [facility]. Please refrain from alcohol, drug, or tobacco use. Please attend alcoholics anonymous meetings. You may return to work on TuesdayAugust 30. If your condition worsens or new symptoms arise, please return to the emergency room. Referrals: [facility] at [facility] [Outside] Mai Dailey DPM [Staff Provider] - OTIS ZAPATA [Primary Care Provider] - <Patrick ESTEBAN,Brad - Last Filed: 08/26/16 12:38> Provider - Provider Date of Admission: 08/17/16 20:32 Attending physician: Brad Nguyen MD Primary care physician: OTIS PRIMARY CARE PROVIDER Hospital Course - Lab Results Lab Results: Micro Results 08/20/16 13:20 Blood-Venous Blood Culture - Final NO GROWTH AFTER 5 DAYS 08/20/16 13:20 Blood-Venous Gram Stain - Final TEST NOT PERFORMED 08/20/16 13:20 Blood-Venous Blood Culture - Final NO GROWTH AFTER 5 DAYS 08/20/16 13:20 Blood-Venous Gram Stain - Final TEST NOT PERFORMED 08/21/16 11:33 Sputum Gram Stain - Final 08/21/16 11:33 Sputum Sputum Culture - Final NORMAL ORAL EMELY 08/21/16 11:33 Urine,Clean Catch Urine Culture - Final No Growth (<1,000 CFU/ML) 08/19/16 09:15 Other: Please Indicate Fungal Culture - Preliminary Most Recent Lab Values WBC 10.6 10^3/ul (4.5-11.0) 08/24/16 06:30 RBC 4.20 10^6/uL (3.5-6.1) 08/24/16 06:30 Hgb 13.1 gm/dL (14.0-18.0) L 08/24/16 06:30 Hct 39.3 % (42.0-52.0) L 08/24/16 06:30 MCV 93.6 fL (80.0-105.0) 08/24/16 06:30 MCH 31.2 pg (25.0-35.0) 08/24/16 06:30 MCHC 33.3 g/dl (31.0-37.0) 08/24/16 06:30 RDW 13.3 % (11.5-14.5) 08/24/16 06:30 Plt Count 239 10^3/uL (120.0-450.0) 08/24/16 06:30 MPV 10.4 fl (7.0-11.0) 08/24/16 06:30 Gran % 55.8 % (50.0-68.0) 08/24/16 06:30 Lymph % (Auto) 31.7 % (22.0-35.0) 08/24/16 06:30 [place] % (Auto) 8.9 % (1.0-6.0) H 08/24/16 06:30 Eos % (Auto) 3.0 % (1.5-5.0) 08/24/16 06:30 Baso % (Auto) 0.6 % (0.0-3.0) 08/24/16 06:30 Gran # 5.89 (1.4-6.5) 08/24/16 06:30 Lymph # 3.4 (1.2-3.4) 08/24/16 06:30 [place] # 0.9 (0.1-0.6) H 08/24/16 06:30 Eos # 0.3 (0.0-0.7) 08/24/16 06:30 Baso # 0.06 K/mm3 (0.0-2.0) 08/24/16 06:30 ESR 52 mm/hr (0.00-15.0) H 08/18/16 05:00 PT 11.4 Seconds (9.9-11.8) 08/17/16 17:59 INR 1.06 (0.93-1.08) 08/17/16 17:59 APTT 30.4 Seconds (23.7-30.8) 08/18/16 05:00 pCO2 49 mm/Hg (35-45) H 08/20/16 12:11 pO2 107.0 mm/Hg (80-100) H 08/20/16 12:11 HCO3 25.8 mmol/L (21-28) 08/20/16 12:11 ABG pH 7.33 (7.35-7.45) L 08/20/16 12:11 ABG Total CO2 27.3 mmol.L (22-28) 08/20/16 12:11 ABG O2 Saturation 98.8 % (95-98) H 08/20/16 12:11 ABG O2 Content 16.3 ML/dl (15-23) 08/20/16 12:11 ABG Base Excess -0.6 mmol/L (-2.0-3.0) 08/20/16 12:11 ABG Hemoglobin 11.9 g/dL (11.7-17.4) 08/20/16 12:11 ABG Carboxyhemoglobin 1.8 % (0.5-1.5) H 08/20/16 12:11 POC ABG HHb (Measured) 1.2 % (0-5) 08/20/16 12:11 ABG Methemoglobin 0.6 % (0.0-3.0) 08/20/16 12:11 ABG O2 Capacity 16.5 mL/dl (16-24) 08/20/16 12:11 VBG pH 7.47 (7.32-7.43) H 08/18/16 00:30 VBG pCO2 43.0 (40-60) 08/18/16 00:30 VBG HCO3 31.3 mmol/l (21-28) H 08/18/16 00:30 VBG Total CO2 32.6 mmol.L (22-28) H 08/18/16 00:30 VBG O2 Sat (Calc) 76.4 % (40-65) H 08/18/16 00:30 VBG Base Excess 6.8 mmol/L (0.0-2.0) H 08/18/16 00:30 VBG Potassium 3.8 mmol/L (3.6-5.2) 08/18/16 00:30 Hgb O2 Saturation 96.5 % (95.0-98.0) 08/20/16 12:11 Sodium 145.0 mmol/L (132-148) 08/18/16 00:30 Chloride 110.0 mmol/L (98-107) H 08/18/16 00:30 Glucose 102 mg/dl (75-110) 08/18/16 00:30 Lactate 2.1 mmol/L (0.7-2.1) 08/18/16 00:30 FiO2 28.0 % 08/20/16 12:11 Sodium 138 mmol/L (132-148) 08/24/16 06:30 Potassium 3.9 mmol/L (3.6-5.0) 08/24/16 06:30 Chloride 103 mmol/L (98-107) 08/24/16 06:30 Carbon Dioxide 27 mmol/L (21-33) 08/24/16 06:30 Anion Gap 12 (10-20) 08/24/16 06:30 BUN 16 mg/dL (7-21) 08/24/16 06:30 Creatinine 0.7 mg/dL (0.5-1.4) 08/24/16 06:30 Est GFR ( Amer) > 60 08/24/16 06:30 Est GFR (Non-Af Amer) > 60 08/24/16 06:30 Random Glucose 110 mg/dL (70-110) 08/24/16 06:30 Calcium 9.5 mg/dL (8.4-10.5) 08/24/16 06:30 Phosphorus 3.4 mg/dL (2.5-4.5) 08/18/16 05:00 Magnesium 2.0 mg/dL (1.7-2.2) 08/23/16 05:30 Total Bilirubin 0.8 mg/dL (0.2-1.3) 08/23/16 05:30 AST 59 U/L (15-59) 08/23/16 05:30 ALT 41 U/L (7-56) 08/23/16 05:30 Alkaline Phosphatase 105 U/L (38-133) 08/23/16 05:30 Lactate Dehydrogenase 723 U/L (333-699) H 08/17/16 17:59 Total Creatine Kinase 98 U/L (35-230) 08/17/16 17:59 Troponin I < 0.01 ng/mL 08/17/16 17:59 C-React Prot High Sens 3.39 mg/L (1.00-3.00) H 08/17/16 17:59 NT-Pro-B Natriuret Pep 30.2 pg/mL (0-450) 08/17/16 17:59 Total Protein 9.4 g/dL (5.8-8.3) H 08/23/16 05:30 Albumin 3.8 g/dL (3.0-4.8) 08/23/16 05:30 Globulin 5.5 gm/dL 08/23/16 05:30 Albumin/Globulin Ratio 0.7 (1.1-1.8) L 08/23/16 05:30 Procalcitonin 0.05 NG/ML (0.19-0.49) L 08/20/16 09:49 TSH 3rd Generation 3.93 mIU/mL (0.46-4.68) 08/20/16 06:00 Venous Blood Potassium 3.8 mmol/L (3.6-5.2) 08/18/16 00:30 Urine Color Yellow (YELLOW) 08/21/16 11:33 Urine Appearance Clear (CLEAR) 08/21/16 11:33 Urine pH 6.0 (4.7-8.0) 08/21/16 11:33 Ur Specific [place] 1.020 (1.005-1.035) 08/21/16 11:33 Urine Protein Negative mg/dL (<30 mg/dL) 08/21/16 11:33 Urine Glucose (UA) Negative mg/dL (NEGATIVE) 08/21/16 11:33 Urine Ketones Trace mg/dL (NEGATIVE) H 08/21/16 11:33 Urine Blood Negative (NEGATIVE) 08/21/16 11:33 Urine Nitrate Negative (NEGATIVE) 08/21/16 11:33 Urine Bilirubin Negative (NEGATIVE) 08/21/16 11:33 Urine Urobilinogen 0.2 E.U./dL (<1 E.U./dL) 08/21/16 11:33 Ur Leukocyte Esterase Negative Derick/uL (NEGATIVE) 08/21/16 11:33 Urine RBC 1 - 3 /hpf (0-2) 08/17/16 20:25 Urine WBC 0 - 2 /hpf (0-6) 08/17/16 20:25 Ur Epithelial Cells 0 - 2 /hpf (0-5) 08/17/16 20:25 Urine Bacteria Few (NEG) 08/17/16 20:25 Urine Opiates Screen Negative (NEGATIVE) 08/17/16 20:25 Urine Methadone Screen Negative (NEGATIVE) 08/17/16 20:25 Ur Barbiturates Screen Negative (NEGATIVE) 08/17/16 20:25 Ur Phencyclidine Scrn Negative (NEGATIVE) 08/17/16 20:25 Ur Amphetamines Screen Negative (NEGATIVE) 08/17/16 20:25 U Benzodiazepines Scrn Negative (NEGATIVE) 08/17/16 20:25 U Oth Cocaine Metabols Negative (NEGATIVE) 08/17/16 20:25 U Cannabinoids Screen Negative (NEGATIVE) 08/17/16 20:25 Alcohol, Quantitative 429 mg/dL (0-10) H* 08/17/16 17:59 GRISELDA Screen Negative (Negative) 08/19/16 06:30 Complement C3 87.0 mg/dL (88.0-165.0) L 08/18/16 10:50 Complement C4 19.3 mg/dL (14.0-44.0) 08/18/16 10:50 RPR Nonreactive (NONREACTIVE) 08/20/16 08:30 T.pallidum Ab (FTA-ABS) Nonreactive (Nonreactive) 08/20/16 07:00 HIV-1 Ab Rapid Screen Non reactive (NON REAC) 08/18/16 05:00 HIV 1&2 Antibody Screen Negative (NEGATIVE) 08/20/16 08:30 Attending/Attestation - Attestation I have personally seen and examined this patient.: Yes I have fully participated in the care of the patient.: Yes I have reviewed all pertinent clinical information, including history, physical exam and plan: Yes Notes (Text): 08/26/16 12:34 Patient was seen and examined with medical office assistant .Agreed with resident assessment and plan. 61 yrs old male was admitted with alcohol withdrawal and pururitic scaly skin lesion, was also in ICU for Precedex drip for alcohol withdrawal. Patient alcohol withdrawal are improved.He is ambulatory. His skin lesion etiology is unclear, there was no cellulitis, he was treated with tapering dose of oral and also with topical steroid.He had skin biopsy done , results are pending at this time.He will be discharged home and will follow up wit [facility] clinic for biopsy results. Management plan was discussed in detail with patient Education was provided.
--- NOTE | 2016-08-24 16:51 | CP.PCM.PN ---
Subjective - Date & Time of Evaluation Date of Evaluation: 08/24/16 Time of Evaluation: 10:55 - Subjective Subjective: Comfortable in bed, not in distress. Still has occasional itch all over. Afebrile overnight. Objective - Vital Signs/Intake and Output Vital Signs (last 24 hours): Temp Pulse Resp BP Pulse Ox 98.3 F 81 20 147/91 H 99 08/24/16 06:00 08/24/16 06:00 08/24/16 06:00 08/24/16 06:00 08/24/16 06:00 Intake and Output: 08/24/16 08/24/16 06:59 18:59 Intake Total 720 Balance 720 - Medications Medications: Current Medications Chlordiazepoxide (Librium) 10 mg PO BID [facility] PRN Reason: Protocol Last Admin: 08/23/16 18:52 Dose: 10 mg Clotrimazole (Lotrimin 1%) 0 gm TOP BID [facility] Last Admin: 08/23/16 18:52 Dose: 1 applic Desoximetasone (Topicort 0.25%) 0 ea TOP BID [facility] Last Admin: 08/23/16 18:52 Dose: 1 applic Folic Acid (Folic Acid) 1 mg PO DAILY [facility] Last Admin: 08/23/16 09:42 Dose: 1 mg Heparin Sodium (Porcine) (Heparin) 5,000 units SC Q8 [facility] PRN Reason: Protocol Last Admin: 08/24/16 06:08 Dose: 5,000 units Loratadine (Claritin) 10 mg PO DAILY [facility] Last Admin: 08/23/16 09:42 Dose: 10 mg Lorazepam (Ativan) 2 mg IVP Q2 PRN; Protocol PRN Reason: Anxiety Last Admin: 08/20/16 01:52 Dose: 2 mg Magnesium Oxide (Mag-Ox) 400 mg PO BID [facility] Last Admin: 08/23/16 18:52 Dose: 400 mg Metoprolol Tartrate (Lopressor) 25 mg PO Q12 [facility] Last Admin: 08/23/16 21:16 Dose: 25 mg Multivitamins (Thera Tab) 1 tab PO DAILY [facility] Last Admin: 08/23/16 09:42 Dose: 1 tab Pantoprazole Sodium (Protonix Ec Tab) 40 mg PO 0630 [facility] Last Admin: 08/24/16 06:09 Dose: 40 mg Prednisone (Prednisone Tab) 15 mg PO DAILY [facility] Thiamine HCl (Vitamin B1 Tab) 100 mg PO DAILY [facility] Last Admin: 08/23/16 09:42 Dose: 100 mg - Labs Labs: 08/24/16 06:30 08/24/16 06:30 PT 11.4 Seconds (9.9-11.8) 08/17/16 17:59 INR 1.06 (0.93-1.08) 08/17/16 17:59 APTT 30.4 Seconds (23.7-30.8) 08/18/16 05:00 - Constitutional Appears: Non-toxic, No Acute Distress - Head Exam Head Exam: NORMAL INSPECTION - ENT Exam ENT Exam: Mucous Membranes Moist - Neck Exam Neck Exam: absent: Lymphadenopathy, Meningismus - Respiratory Exam Respiratory Exam: Decreased Breath Sounds - Cardiovascular Exam Cardiovascular Exam: +S1, +S2 - GI/Abdominal Exam GI & Abdominal Exam: Soft. absent: Tenderness Assessment and Plan - Assessment and Plan (Free Text) Plan: Assessment Diffuse rash with plaques S/P skin biopsy on the left anterior leg POD #1 histoy of alcohol abuse homelessness Plan S/P application of Permethrin cream last week; currently off antibiotics Follow up results of the skin biopsy as an outpatient and the patient will be following up at the [facility] clinic
== END 2016-08-24 15:23 | disposition home or self-care (01) | DRG 277 ==
LOC: ED 16:57 → ERH 20:32 → 5RNO 23:54 → 3RNO 08-18 14:43 → CCU 08-20 06:24 → 3RNO 08-23 15:47
PROVIDERS: ADMIT Internal Medicine; ATTEND Internal Medicine
PROC: 0HBLXZX Excision of Left Lower Leg Skin, External Approach, Diagnostic (ICD-10-PCS; principal; 2016-08-24)
DX: L03.116 Cellulitis of left lower limb (principal); F10.231 Alcohol dependence with withdrawal delirium; F10.24 Alcohol dependence with alcohol-induced mood disorder; K74.60 Unspecified cirrhosis of liver; E87.6 Hypokalemia; L03.115 Cellulitis of right lower limb; L30.8 Other specified dermatitis; I47.1 Supraventricular tachycardia; Y90.8 Blood alcohol level of 240 mg/100 ml or more; E83.42 Hypomagnesemia; L29.9 Pruritus, unspecified; F43.23 Adjustment disorder with mixed anxiety and depressed mood; Z59.0 Homelessness; Z78.1 Physical restraint status

== ENCOUNTER 2016-09-01 13:34 | Emergency (ER) | payer MEDICAID ==
[2016-09-01 13:34] VITALS: BMI 24.2
[2016-09-01 14:15] VITALS: BP 105/73; PULSE 77; TEMP 99.2
[2016-09-01 14:30] VITALS: RESP 17; O2SAT 99
--- NOTE | 2016-09-01 15:18 | ED PDOC ---
Arrival/HPI - General Chief Complaint: Suture/Staple Removal Time Seen by Provider: 09/01/16 14:38 Historian: Patient - History of Present Illness Narrative History of Present Illness (Text): 09/01/16 15:28 61yo male with PMHx of hypertension present to ED for suture removal . States suture was placed here in [facility] by Dr. Jack after biopsy. States he was told he will get a call back, but never did. He denies pain to the area. Denies purulent discharge, fever, chills, any other complaint. Past Medical History - Provider Review Nursing Documentation Reviewed: Yes - Cardiac Hx Hypertension: Yes - Pulmonary Hx Respiratory Disorders: No - Neurological Hx Dementia: Yes - HEENT Hx HEENT Disorder: No - Renal Hx Renal Disorder: No - Endocrine/Metabolic Hx Endocrine Disorders: No - Hematological/Oncological Hx Blood Disorders: No - Integumentary Hx Dermatological Disorder: No - Musculoskeletal/Rheumatological Hx Musculoskeletal Disorders: No - Gastrointestinal Hx Gastrointestinal Disorders: No - Genitourinary/Gynecological Hx Genitourinary Disorders: No - Psychiatric Hx Psychophysiologic Disorder: No Hx Substance Use: No - Surgical History Other/Comment: BX L LEG - Anesthesia Hx Anesthesia: No Family/Social History - Physician Review Nursing Documentation Reviewed: Yes Family/Social History: Unknown Family HX Smoking Status: Never Smoked Hx Alcohol Use: Yes Hx Substance Use: No Allergies/Home Meds Allergies/Adverse Reactions: Allergies No Known Allergies Allergy (Verified 09/01/16 13:56) Review of Systems - Physician Review All systems were reviewed & negative as marked: Yes - Review of Systems Constitutional: Normal Eyes: Normal ENT: Normal Respiratory: Normal Cardiovascular: Normal Gastrointestinal: Normal Genitourinary Male: Normal Musculoskeletal: Normal Skin: Other (Suture removal) Neurological: Normal Endocrine: Normal Hemo/Lymphatic: Normal Psychiatric: Normal Physical Exam Vital Signs Reviewed: Yes Vital Signs Temp Pulse Resp BP Pulse Ox 09/01/16 14:15 99.2 F 77 17 105/73 99 09/01/16 14:00 99.2 F 77 16 105/73 991 H Temperature: Afebrile Blood Pressure: Normal Pulse: Regular Respiratory Rate: Normal Appearance: Positive for: Well-Appearing, Non-Toxic, Comfortable Pain Distress: None Mental Status: Positive for: Alert and Oriented X 3 - Systems Exam Head: Present: Atraumatic, Normocephalic Pupils: Present: PERRL Extroacular Muscles: Present: EOMI Conjunctiva: Present: Normal Mouth: Present: Moist Mucous Membranes Neck: Present: Normal Range of Motion Respiratory/Chest: Present: Clear to Auscultation, Good Air Exchange. No: Respiratory Distress, Accessory Muscle Use Cardiovascular: Present: Regular Rate and Rhythm, Normal S1, S2. No: Murmurs Abdomen: Present: Normal Bowel Sounds. No: Tenderness, Distention, Peritoneal Signs Back: Present: Normal Inspection Upper Extremity: Present: Normal Inspection. No: Cyanosis, Edema Lower Extremity: Present: Normal Inspection. No: Edema Neurological: Present: GCS=15, CN II-XII Intact, Speech Normal Skin: Present: Warm, Dry, Normal Color, Other (One suture noted in place on left anterior lower leg). No: Rashes Psychiatric: Present: Alert, Oriented x 3, Normal Insight, Normal Concentration Medical Decision Making ED Course and Treatment: 09/01/16 15:[address] Jack and her saw pt in ED. Wants patient to f/u with his office for review of his biopsy result Suture was removed in ED by the vice president mission integration. PT was advised to continue keeping area clean and dry. Strongly advised to f/u with Dr. Jack as was advised. TRT ED for any new or worsening symptoms. Disposition/Present on Arrival - Present on Arrival Any Indicators Present on Arrival: No History of DVT/PE: No History of Uncontrolled Diabetes: No Urinary Catheter: No History of Decub. Ulcer: No History Surgical Site Infection Following: None - Disposition Have Diagnosis and Disposition been Completed?: Yes Diagnosis: Visit for suture removal Disposition: HOME/ ROUTINE Disposition Time: 15:05 Patient Plan: Discharge Condition: STABLE Discharge Instructions (ExitCare): Stitches Removal (ED) Additional Instructions: Follow up with Dr. Jack Return to ED for any new or worsening symptoms Referrals: Oswaldo Jack MD [Staff Provider] - Follow up with primary
== END 2016-09-01 15:42 | disposition home or self-care (01) ==
LOC: ED 13:34
DX: Z48.02 Encounter for removal of sutures (principal)

== ENCOUNTER 2016-10-12 17:54 | Emergency (ER) | payer MEDICAID ==
[2016-10-12 18:19] VITALS: TEMP 97.8; O2SAT 98; BMI 26.9
--- NOTE | 2016-10-12 18:55 | ED PDOC ---
Arrival/HPI - General Chief Complaint: Lower Extremity Problem/Injury Time Seen by Provider: 10/12/16 18:05 Historian: Patient - History of Present Illness Narrative History of Present Illness (Text): 10/12/16 18:48 61 y.o. male who comes to the ED with an itchy rash. The patient was admitted to [facility] with a similar rash on 08/17/16 and had an extensive evaluation, including a biopsy of his rash, which revealed perivascular dermatitis. At the time of his admission, he was started on antibiotics for possible cellulitis, but they were discontinued, given the biopsy results. He does have a history of etoh abuse and has been continuing to drink etoh. He was discharged last time on a short steroid taper with lotrimin and topicort. He says he at first improved significantly but then over the past few weeks, the rash has returned and is not any better. It is an itchy rash, worst in the legs. There is no pain or fever or sob or abd pain or n/v. Past Medical History - Cardiac Hx Cardiac Disorders: Yes Hx Congestive Heart Failure: Yes Hx Hypertension: Yes - Pulmonary Hx Respiratory Disorders: No - Neurological Hx Dementia: Yes - HEENT Hx HEENT Disorder: No - Renal Hx Renal Disorder: No - Endocrine/Metabolic Hx Endocrine Disorders: No - Hematological/Oncological Hx Blood Disorders: No - Integumentary Hx Dermatological Disorder: No - Musculoskeletal/Rheumatological Hx Musculoskeletal Disorders: Yes Hx Fractures: Yes (right hand) - Gastrointestinal Hx Gastrointestinal Disorders: No - Genitourinary/Gynecological Hx Genitourinary Disorders: No - Psychiatric Hx Psychophysiologic Disorder: No Hx Substance Use: No - Surgical History Other/Comment: BX L LEG - Anesthesia Hx Anesthesia: Yes Hx Anesthesia Reactions: No Hx Malignant Hyperthermia: No Family/Social History Family/Social History: No Known Family HX Smoking Status: Never Smoked Hx Alcohol Use: Yes Frequency of alcohol use: Daily Hx Substance Use: No Allergies/Home Meds Allergies/Adverse Reactions: Allergies No Known Allergies Allergy (Verified 10/12/16 18:19) Review of Systems - Physician Review All systems were reviewed & negative as marked: Yes - Review of Systems Constitutional: absent: Fevers Respiratory: absent: SOB, Cough Cardiovascular: absent: Chest Pain Gastrointestinal: absent: Abdominal Pain, Nausea, Vomiting Genitourinary Male: absent: Dysuria Skin: Rash, Pruritis, Skin Lesions Physical Exam Vital Signs Temp Pulse Resp BP Pulse Ox 10/12/16 18:13 97.8 F 90 18 143/96 H 98 Temperature: Afebrile Blood Pressure: Normal Pulse: Regular Respiratory Rate: Normal Appearance: Positive for: Well-Appearing, Non-Toxic, Comfortable Pain Distress: None Mental Status: Positive for: Alert and Oriented X 3 - Systems Exam Head: Present: Atraumatic, Normocephalic Pupils: Present: PERRL Conjunctiva: Present: Normal Mouth: Present: Moist Mucous Membranes Pharnyx: Present: Normal. No: ERYTHEMA, EXUDATE Neck: Present: Normal Range of Motion Respiratory/Chest: Present: Clear to Auscultation, Good Air Exchange. No: Respiratory Distress, Accessory Muscle Use Cardiovascular: Present: Regular Rate and Rhythm, Normal S1, S2. No: Murmurs Abdomen: Present: Normal Bowel Sounds. No: Tenderness, Distention, Peritoneal Signs Back: Present: Normal Inspection Upper Extremity: Present: Normal Inspection. No: Cyanosis, Edema Lower Extremity: No: Normal Inspection (Rash as noted), Edema Neurological: Present: GCS=15, CN II-XII Intact, Speech Normal Skin: Present: Warm, Dry, Rashes (Dry, nontender, scaly, nonpurulent rash, predominantly in the anterior tibial region; no warmth or erythema) Psychiatric: Present: Alert, Oriented x 3, Normal Insight, Normal Concentration Medical Decision Making ED Course and Treatment: 10/12/16 18:57 Patient presenting to the ED with rash, for which he was already fully evaluated during an admission nearly two months ago and returns for the same. Will d/c on oral and topical steroids as before as well as an antifungal and recommend follow up with dermatology. - Medication Orders Current Medication Orders: Discontinued Medications Hydroxyzine HCl (Atarax) 25 mg PO ONCE STA Stop: 10/12/16 18:47 Prednisone (Prednisone Tab) 40 mg PO STAT STA Stop: 10/12/16 18:44 Disposition/Present on Arrival - Present on Arrival Any Indicators Present on Arrival: No History of DVT/PE: No History of Uncontrolled Diabetes: No Urinary Catheter: No History of Decub. Ulcer: No History Surgical Site Infection Following: None - Disposition Have Diagnosis and Disposition been Completed?: Yes Diagnosis: Superficial perivascular dermatitis, Pruritic rash Disposition: HOME/ ROUTINE Disposition Time: 19:00 Patient Plan: Discharge Condition: GOOD Additional Instructions: Stop alcohol use. Take the medications as prescribed. Recommend taking the prednisone in the morning and follow up with dermatology. Return to the emergency department if any new concerning symptoms. Prescriptions: Desoximetasone 0.25% [Topicort 0.25%] 1 unit TP BID #60 gm Ketoconazole 2% Cr [Nizoral] 1 cre EXT BID #60 gm predniSONE [Prednisone] 2 tab PO DAILY #11 tab Referrals: Susan Amaro, [Primary Care Provider] - Follow up with primary
[2016-10-12 19:15] VITALS: BP 149/80; PULSE 89; RESP 17
--- NOTE | 2016-10-13 16:03 | CARD ---
APPROVED REPORT EKG Measurement Heart [id number] <Conclusion> Normal sinus rhythm Normal ECG
== END 2016-10-12 19:21 | disposition home or self-care (01) ==
LOC: ED 17:54
DX: L30.8 Other specified dermatitis (principal)